=== PATIENT | male | born 1955 | race Caucasian/White ===

== ENCOUNTER 2020-04-11 21:41 | Observation (INO) | payer MEDICARE, SELFPAY ==
--- NOTE | 2020-04-11 | ECG_ITS ---
Test Reason : SYNCOPE Blood Pressure : / mmHG Vent. Rate : 080 BPM Atrial Rate : 060 BPM P-R Int : 000 ms QRS Dur : 222 ms QT Int : 516 ms P-R-T Axes : 000 -32 -66 degrees QTc Int : 595 ms Electronic ventricular pacemaker Abnormal ECG No previous ECGs available Referred By: Generic ED Physician Electronically Signed By:NEIL HUTCHINSON MD
[2020-04-11 21:49] VITALS: BP 118/70; BP 124/72; PULSE 80; RESP 19; O2SAT 93; O2SAT 98; BMI 41.6
[2020-04-11 21:58] LABS: Glucose, Whole Blood 127 mg/dL (60-115)
--- NOTE | 2020-04-11 22:07 | PC.NURSE ---
pt refusing cspine collar, states i cannot breath , attempted to stabilize/maintain aligned cspine w/ blankets and towels. pending primary eval.
--- NOTE | 2020-04-11 22:22 | CT_ITS ---
EXAMINATION: NONCONTRAST HEAD CT NONCONTRAST CERVICAL SPINE CT INDICATION INFORMATION: Fall. COMPARISON: None TECHNIQUE: Separate noncontrast CT examinations of the head and cervical spine were performed. Coronal and sagittal images were created for each examination at the technologist workstation. This CT examination was performed using dose optimization techniques as appropriate, variously including the following: *Automated exposure control *Adjustment of mA and/or kV according to patient size (this includes techniques or standardized protocols for targeted exams where dose is matched to indication/reason for exam; i.e. extremities or head) *Use of iterative reconstruction technique DLP: 1734 mGy-cm FINDINGS: Head: There is no evidence of acute intracranial hemorrhage or territorial infarction. No abnormal mass effect or midline shift is seen. Morales to white matter differentiation is well preserved. No extra-axial fluid collections are identified. No hydrocephalus. No significant volume loss. There is no abnormal attenuation within the brain parenchyma. No acute osseous or soft tissue abnormality. The mastoid air cells and visualized portions of the paranasal sinuses are well aerated. Cervical spine: There is straightening of the normal cervical lordosis. There is otherwise anatomic alignment of the vertebral bodies and posterior elements. The atlantoaxial and atlantooccipital articulations are intact. Vertebral body heights are maintained. There is multilevel intervertebral disc space narrowing with endplate osteophyte formation and facet arthropathy. No evidence of acute fracture. No prevertebral soft tissue swelling. Visualized portions of the lung apices are unremarkable. The thyroid gland is unremarkable. Partially visualized left chest wall pacer wires. CT/CT cervical spine wo con IMPRESSION: 1. No acute intracranial findings. 2. No acute fracture or malalignment of the cervical spine. Moderate degenerative changes.
--- NOTE | 2020-04-11 22:46 | ED_ITS ---
HPI - Fall General Chief Complaint: Fall Stated Complaint: syncopee Time Seen by Provider: 04/11/20 22:21 Source: patient Mode of arrival: EMS History of Present Illness HPI Narrative: 64-year-old male with history of CABG. Defibrillator. states was drinking alcohol today. Stood up and passed out witnessed by his family who called 911. Prior to episode patient states he is feeling little bit weak however has had no chest pain or no shortness of breath patient denies recent illness or fevers. Patient states passed out for several minutes denies any pain currently MD complaint: fall Onset (ago): hour(s) Fall from: standing Place fall occurred: home Length of LOC: minutes(s) Symptoms prior to fall: none Context: alcohol use Location of injury: head Related Data Home Medications Medication Instructions Recorded Confirmed amiodarone 1 tab PO DAILY 04/11/20 04/11/20 atorvastatin 1 tab PO DAILY 04/11/20 04/11/20 carvedilol 1 tab PO BID 04/11/20 04/11/20 clopidogrel 1 tab PO DAILY 04/11/20 04/11/20 furosemide 1 tab PO DAILY 04/11/20 04/11/20 sacubitril-valsartan [Entresto] 1 tab PO BID 04/11/20 04/11/20 sertraline 1 tab PO DAILY 04/11/20 04/11/20 simvastatin 1 tab PO BEDTIME 04/11/20 04/11/20 spironolactone 0.5 tab PO DAILY 04/11/20 04/11/20 Allergies Allergy/AdvReac Type Severity Reaction Status Date / Time No Known Allergies Allergy Verified 04/11/20 21:54 Review of Systems Review of Systems: Constitutional : No Weight loss, No Fever, No Chills, No Night Sweats, No Fatigue, No Malaise ENT/Mouth : No Hearing loss, No Ear Pain, No Nasal Congestion, No Sinus Pain, No Hoarseness, No sore throat, No Rhinorrhea, No Swallowing Difficulty Eyes: No Eye Pain, No Swelling, No Redness, No Foreign Body, No Discharge, No Vision Changes Cardiovascular : No Chest Pain, No SOB, No Dyspnea on Exertion, No Orthopnea, No Edema, No Palpitations Respiratory : No Cough, No Sputum, No Wheezing, No Smoke Exposure, No Dyspnea Gastrointestinal : No Nausea, No Vomiting, No Diarrhea, No Constipation, No abdominal Pain, No Hematochezia, No Melena Genitourinary : no irregular bleeding, No Dysuria, No Urinary Frequency, No Hematuria, No Urinary Incontinence, No Urgency, No Flank Pain, No Urinary Flow Changes, No Hesitancy Musculoskeletal : No joint pain, No Myalgias, No Joint Swelling Skin : No Skin Lesions, No rash Neuro : No Weakness, No Numbness, No Paresthesias, No Loss of Consciousness, No Dizziness, No Headache Psych : No Anxiety/Panic, No Depression, No SI/HI/AH/VH, No Social Issues, Heme/Lymph: No Bruising, No Bleeding,No Lymphadenopathy Endocrine : No Polyuria, No Polydipsia, No Temperature Intolerance [facility] Past Medical History Medical History Borderline diabetes mellitus CHF (congestive heart failure) CVA (cerebral vascular accident) High cholesterol HTN (hypertension) Surgical History H/O heart bypass surgery Stented coronary artery Social History Social History Alcohol intake: current Alcohol intake frequency: 3 or more drinks per day Smoking Status: Light tobacco smoker Smoked in Last 30 Days: Yes Use of substances other than those prescribed or required for medical reasons: Yes Substance Use Type: Marijuana Substance Use Frequency: Occasionally Advance Directives: No Advance Directives Information Provided: Yes Physical Exam Vital Signs: Vital Signs: Last Vital Signs Pulse 80 04/11/20 22:59 Resp 16 04/11/20 22:59 BP 140/87 H 04/11/20 22:59 Pulse Ox 98 04/11/20 22:59 Body Mass Index 41.6 Vital signs reviewed Appearance: Alert. Oriented X3. No acute distress. Obese Eyes: Pupils equal, round and reactive to light. ENT: Pharynx normal. Neck: Normal inspection. Neck supple. No lymph nodes noted. No crepitus CVS: Normal heart rate and rhythm. Pulses normal. Normal S1 and S2 pacemaker left upper chest Respiratory: No respiratory distress. Breath sounds normal. No Wheezing. No ral es Abdomen: Soft and nontender. No rigidity. No distention. good BS x4 Skin: Skin warm and dry. Normal skin color. Normal skin turgor. Extremities: No lower extremity edema. Neurovascular intact to all extremities. No Lacerations. No Rash Neuro: Oriented X 3. No motor deficit. No sensory deficit. Moving all extermities. No slurred speech. Course Course Course Narrative: Differential diagnosis, acute coronary syndrome, stroke, intracranial bleeding I spoke with hospitalist Dr. Redd for admission MDM - Fall MDM Narrative Medical decision making narrative: 64-year-old male with a history of CABG, stroke with admission for syncope. Patient CT scan negative brain and C-spine. Positive for alcohol use EKG is paced rhythm Lab Data Attestation: I reviewed the patient's lab results. Result diagrams: 04/11/20 22:50 04/11/20 22:50 Labs: Lab Results 04/11/20 04/11/20 04/11/20 Range/Units 21:50 22:45 22:50 WBC 6.8 (4.8-10.8) X10*3/uL RBC 4.91 (4.60-5.80) X10*6/uL Hgb 14.9 (14.0-18.0) g/dl Hct 46.6 (42-52) % MCV 94.9 (80-98) fL MCH 30.3 (27.0-33.0) pg MCHC 32.0 (31.0-36.0) g/dl RDW 13.2 (11.0-16.0) % Plt Count 254 (160-400) X10*3/uL MPV 10.5 (9.4-12.4) fL Immature Gran % (Auto) 0.6 H (0.0-0.4) % Neut % (Auto) 56.1 (45-73) % Lymph % (Auto) 29.5 (20-40) % [place] % (Auto) 9.7 (2-11) % Eos % (Auto) 3.8 (0-4) % Baso % (Auto) 0.3 (0-2) % Lymph # (Auto) 2.0 (1.2-4.9) X10*3/uL [place] # (Auto) 0.7 (0.1-1.2) X10*3/uL Eos # (Auto) 0.3 (0.0-0.4) X10*3/uL Baso # (Auto) 0.0 (0.0-0.2) X10*3/uL Abs Immat Gran (auto) 0.04 H (0.00-0.03) X10*3/uL Absolute Neuts (auto) 3.8 (2.0-8.3) X10*3/uL Absolute Nucleated RBC 0.000 (0.0-0.012) X10*3/uL Nucleated RBC % (auto) 0.0 (0.0-0.2) /100WBC PT (10.8-13.0) SEC INR (0.9-1.1) APTT (24.1-38.0) SEC Sodium (135-145) mmol/L Potassium (3.3-5.1) mmol/l Chloride (96-108) mmol/L Carbon Dioxide (22-29) mmol/L Anion Gap (12-20) BUN (9-16) mg/dL Creatinine (0.5-1.4) mg/dL Estim Creat Clear Calc Estimated GFR POC Glucose 127 H (60-115) mg/dL Random Glucose (60-115) mg/dL Calcium (8.4-10.2) mg/dL Total Bilirubin (0.0-1.0) mg/dL Direct Bilirubin (0.0-0.5) mg/dL AST (5-37) U/L ALT (0-40) U/L Alkaline Phosphatase (39-117) U/L Troponin I High Sens (<3.5-35.0) ng/L Total Protein (6.5-8.0) g/dL Albumin (3.5-5.0) g/dL Lipase (8-78) U/L Ethyl Alcohol mg/dL COVID-19 (NELLIE) Negative (Negative) COVID-19 Clin Com See Note 04/11/20 04/11/20 04/11/20 Range/Units 22:50 22:50 22:50 WBC (4.8-10.8) X10*3/uL RBC (4.60-5.80) X10*6/uL Hgb (14.0-18.0) g/dl Hct (42-52) % MCV (80-98) fL MCH (27.0-33.0) pg MCHC (31.0-36.0) g/dl RDW (11.0-16.0) % Plt Count (160-400) X10*3/uL MPV (9.4-12.4) fL Immature Gran % (Auto) (0.0-0.4) % Neut % (Auto) (45-73) % Lymph % (Auto) (20-40) % [place] % (Auto) (2-11) % Eos % (Auto) (0-4) % Baso % (Auto) (0-2) % Lymph # (Auto) (1.2-4.9) X10*3/uL [place] # (Auto) (0.1-1.2) X10*3/uL Eos # (Auto) (0.0-0.4) X10*3/uL Baso # (Auto) (0.0-0.2) X10*3/uL Abs Immat Gran (auto) (0.00-0.03) X10*3/uL Absolute Neuts (auto) (2.0-8.3) X10*3/uL Absolute Nucleated RBC (0.0-0.012) X10*3/uL Nucleated RBC % (auto) (0.0-0.2) /100WBC PT 11.5 (10.8-13.0) SEC INR 1.0 (0.9-1.1) APTT 30.8 (24.1-38.0) SEC Sodium 137 (135-145) mmol/L Potassium 3.8 (3.3-5.1) mmol/l Chloride 98 (96-108) mmol/L Carbon Dioxide 24 (22-29) mmol/L Anion Gap 19 (12-20) BUN 33 H (9-16) mg/dL Creatinine 1.57 H (0.5-1.4) mg/dL Estim Creat Clear Calc 62.1 Estimated GFR 45 POC Glucose (60-115) mg/dL Random Glucose 107 (60-115) mg/dL Calcium 8.7 (8.4-10.2) mg/dL Total Bilirubin 0.2 (0.0-1.0) mg/dL Direct Bilirubin < 0.2 (0.0-0.5) mg/dL AST 17 (5-37) U/L ALT 27 (0-40) U/L Alkaline Phosphatase 55 (39-117) U/L Troponin I High Sens 16.2 (<3.5-35.0) ng/L Total Protein 6.8 (6.5-8.0) g/dL Albumin 4.4 (3.5-5.0) g/dL Lipase 35 (8-78) U/L Ethyl Alcohol mg/dL COVID-19 (NELLIE) (Negative) COVID-19 Clin Com 04/11/20 Range/Units 22:50 WBC (4.8-10.8) X10*3/uL RBC (4.60-5.80) X10*6/uL Hgb (14.0-18.0) g/dl Hct (42-52) % MCV (80-98) fL MCH (27.0-33.0) pg MCHC (31.0-36.0) g/dl RDW (11.0-16.0) % Plt Count (160-400) X10*3/uL MPV (9.4-12.4) fL Immature Gran % (Auto) (0.0-0.4) % Neut % (Auto) (45-73) % Lymph % (Auto) (20-40) % [place] % (Auto) (2-11) % Eos % (Auto) (0-4) % Baso % (Auto) (0-2) % Lymph # (Auto) (1.2-4.9) X10*3/uL [place] # (Auto) (0.1-1.2) X10*3/uL Eos # (Auto) (0.0-0.4) X10*3/uL Baso # (Auto) (0.0-0.2) X10*3/uL Abs Immat Gran (auto) (0.00-0.03) X10*3/uL Absolute Neuts (auto) (2.0-8.3) X10*3/uL Absolute Nucleated RBC (0.0-0.012) X10*3/uL Nucleated RBC % (auto) (0.0-0.2) /100WBC PT (10.8-13.0) SEC INR (0.9-1.1) APTT (24.1-38.0) SEC Sodium (135-145) mmol/L Potassium (3.3-5.1) mmol/l Chloride (96-108) mmol/L Carbon Dioxide (22-29) mmol/L Anion Gap (12-20) BUN (9-16) mg/dL Creatinine (0.5-1.4) mg/dL Estim Creat Clear Calc Estimated GFR POC Glucose (60-115) mg/dL Random Glucose (60-115) mg/dL Calcium (8.4-10.2) mg/dL Total Bilirubin (0.0-1.0) mg/dL Direct Bilirubin (0.0-0.5) mg/dL AST (5-37) U/L ALT (0-40) U/L Alkaline Phosphatase (39-117) U/L Troponin I High Sens (<3.5-35.0) ng/L Total Protein (6.5-8.0) g/dL Albumin (3.5-5.0) g/dL Lipase (8-78) U/L Ethyl Alcohol 148 mg/dL COVID-19 (NELLIE) (Negative) COVID-19 Clin Com ECG Data Attestation: I personally reviewed and interpreted this ECG as follows: Interpretation: Atrially paced at 80. Wide QRS abnormal p.r interval no STEMI. Discharge Plan Discharge Clinical Impression: Alcohol abuse Syncope Qualifiers: Syncope type: unspecified Qualified Code(s): R55 - Syncope and collapse Head injury Qualifiers: Encounter type: initial encounter Qualified Code(s): S09.90XA - Unspecified injury of head, initial encounter Patient Disposition: Admitted As Inpatient
[2020-04-11] MEDS: 0.9 % Sodium Chloride 1,000 ML 999 ML IVCONT (22:53)
[2020-04-11 22:57] LABS: Basophils Percent Auto 0.3 % (0-2); Eosinophils Absolute Auto 0.3 X10*3/uL (0.0-0.4); Eosinophils Percent Auto 3.8 % (0-4); Hematocrit 46.6 % (42-52); Hemoglobin 14.9 g/dl (14.0-18.0); Imm Gran Abs Auto 0.04 X10*3/uL (0.00-0.03); Imm Gran Pct Auto 0.6 % (0.0-0.4); Lymphocytes Percent Auto 29.5 % (20-40); Mean Corpuscular Hemoglobin 30.3 pg (27.0-33.0); Mean Corpuscular Volume 94.9 fL (80-98); Mean Platelet Volume 10.5 fL (9.4-12.4); Monocytes Absolute Auto 0.7 X10*3/uL (0.1-1.2); Monocytes Percent Auto 9.7 % (2-11); Neutrophils Absolute Auto 3.8 X10*3/uL (2.0-8.3); Neutrophils Percent Auto 56.1 % (45-73); Platelet Count 254 X10*3/uL (160-400); Red Blood Count 4.91 X10*6/uL (4.60-5.80); Red Cell Distribution Width 13.2 % (11.0-16.0); White Blood Count 6.8 X10*3/uL (4.8-10.8)
[2020-04-11 22:59] VITALS: BP 140/87; PULSE 80; RESP 16; O2SAT 98
[2020-04-11 22:59] LABS: MANUAL DIFF FLAG NO
[2020-04-11 23:05] LABS: Prothrombin Time 11.5 SEC (10.8-13.0)
[2020-04-11 23:07] LABS: Partial Thromboplastin Time 30.8 SEC (24.1-38.0)
[2020-04-11 23:24] LABS: Ethanol 148 mg/dL
[2020-04-11 23:26] LABS: COVID-19 Test Negative (Negative); IDNOW Serial# 9DD0AD1C
[2020-04-11 23:28] LABS: Alanine Aminotransferase 27 U/L (0-40); Albumin Level 4.4 g/dL (3.5-5.0); Alkaline Phosphatase 55 U/L (39-117); Anion Gap 19 (12-20); Aspartate Amino Transferase 17 U/L (5-37); Bilirubin Direct < 0.2 mg/dL (0.0-0.5); Bilirubin Total 0.2 mg/dL (0.0-1.0); Blood Urea Nitrogen 33 mg/dL (9-16); Calcium 8.7 mg/dL (8.4-10.2); Carbon Dioxide 24 mmol/L (22-29); Chloride 98 mmol/L (96-108); Creatinine Clr Calc Pharmacy 62.1; Estimated Glomerular Filt Rate 45; Glucose Random 107 mg/dL (60-115); Lipase 35 U/L (8-78); Potassium 3.8 mmol/l (3.3-5.1); Sodium 137 mmol/L (135-145); Total Protein 6.8 g/dL (6.5-8.0)
[2020-04-11 23:32] LABS: Troponin-I High Sensitivity 16.2 ng/L (<3.5-35.0)
[2020-04-12] VITALS (15 sets, daily range): BP systolic 86–175; BP diastolic 52–98; PULSE 58–92; RESP 16–25; TEMP 36.4–37.2; O2SAT 93–99; BMI 41.6
--- NOTE | 2020-04-12 | XR_ITS ---
EXAMINATION: XR CHEST CLINICAL INFORMATION: Shortness of breath COMPARISON: 12/26/2007 TECHNIQUE: Frontal view of the chest was obtained. FINDINGS: Left chest wall pacer with leads over the right atrium and right ventricle. Median sternotomy wires noted with fracture of the superior wires. Cardiac leads overlie the chest. The lungs are well expanded. There is mild bronchial wall thickening noted. No consolidation. No edema or effusion. No pneumothorax. The cardiomediastinal silhouette appears prominent. XR/XR chest 1V IMPRESSION: No consolidation. Bronchial wall thickening can be seen with a small airways process such as asthma or atypical/viral infection.
--- NOTE | 2020-04-12 | ECG_ITS ---
Test Reason : SYNCOPE Blood Pressure : / mmHG Vent. Rate : 059 BPM Atrial Rate : 059 BPM P-R Int : 186 ms QRS Dur : 158 ms QT Int : 514 ms P-R-T Axes : 040 265 033 degrees QTc Int : 508 ms Sinus bradycardia Possible Left atrial enlargement Right bundle branch block Left anterior fascicular block Abnormal ECG When compared with ECG of 11-APR-2020 21:53, Sinus rhythm has replaced Electronic ventricular pacemaker Referred By: Lluvia Han Electronically Signed By:NEIL HUTCHINSON MD
[2020-04-12] MEDS: Enoxaparin Sodium 40 MG/0.4 ML SYRINGE SUBCUT (02:07)
[2020-04-12] MEDS: 0.9 % Sodium Chloride Flush 3 ML SYRINGE IVFLUSH ×3 (02:09→23:20)
--- NOTE | 2020-04-12 02:22 | P.HPHOSP_ITS ---
History of Present Illness Date of Service: 04/12/20 Chief Complaint: syncope this is a 64-year-old male with past medical history of CHFrEF, coronary artery disease status post CABG, HTN, hyperlipidemia, borderline diabetes , CVA, who presents to the hospital with complaints of syncopal episode. Patient reports that he was at home was sitting down got up to go outside and passed out. He reports he had no prodromal symptoms, he had a similar episode a week prior but did not want to come to the hospital. this lasted for few seconds, when he came about he was not postictal. His daughter witnessed the episode, and told him that when he went down he hit his head on the side of the covered. He reported no lightheadedness, no palpitations, no chest pain, he reports a chronic shortness of breath with no change, no changes in vision. Currently has no headache. He has been in his usual state of health. He was drinking more than usual today with his friends and was drawn clean the incident occurred but reports that when the previous incident happened last week he was sober and was not drinking. he reports that he has not been able to lie flat in his bed for almost a year now and reports some lower extremity edema mostly when he is on his boat and does not move around. Patient also reports incidence of defibrillator shocking him sometime in April of last year as well as May to June. He reports that he sometimes his defibrillator does record irregularities without him having any symptoms of it. On arrival to the ED hemodynamically stable with no significant abnormal vitals labs are significant for a BUN of 33 with a creatinine of 1.57, head and cervical spine CT negative, EKG shows paced rhythm past medical history: Coronary artery disease status post CABG, CHF with reduced ejection fraction, hypertension, hyperlipidemia, CVA, borderline diabetes past surgical history: CABG family history: significant for heart disease, hypertension social history: Comes from home, lives with his daughter, smokes less than 1 pack per day, drinks about 3 hard liquor daily, denies any history of withdrawals, denies any illicit drug use Review of Systems Review of Systems: Yes all other systems are reviewed and are negative [facility] Medical History Borderline diabetes mellitus CHF (congestive heart failure) CVA (cerebral vascular accident) High cholesterol HTN (hypertension) Surgical History H/O heart bypass surgery Stented coronary artery Social History Household Members: Children Housing: House Do you presently have visiting nurse or other home services: No Alcohol intake: current Alcohol intake frequency: 3 or more drinks per day Smoking Status: Light tobacco smoker Years Smoked: 50 Smoked in Last 30 Days: Yes Patient Interested in Nicotine Replacement: Yes Use of substances other than those prescribed or required for medical reasons: Yes Substance Use Type: Marijuana Substance Use Frequency: Occasionally Last Used Substance: Days (ago) Have you been hit, kicked, punched, or otherwise hurt by someone within the past year? If so, by whom?: No Do you feel safe in your current relationship?: No Current Relationship Is there a partner from a previous relationship who is making you feel unsafe now?: No Are you made to feel afraid or neglected: No Advance Directives: No Advance Directives Information Provided: Yes Do you have thoughts of harming others: None Do you have a plan to hurt others: No Plan Recently lost weight without trying: No Meds Allergies Allergy/AdvReac Type Severity Reaction Status Date / Time No Known Allergies Allergy Verified 04/11/20 21:54 Home Medications Medication Instructions Recorded Confirmed Type amiodarone 1 tab PO DAILY 04/11/20 04/11/20 History atorvastatin 1 tab PO DAILY 04/11/20 04/11/20 History carvedilol 1 tab PO BID 04/11/20 04/11/20 History clopidogrel 1 tab PO DAILY 04/11/20 04/11/20 History furosemide 1 tab PO DAILY 04/11/20 04/11/20 History sacubitril-valsartan [Entresto] 1 tab PO BID 04/11/20 04/11/20 History sertraline 1 tab PO DAILY 04/11/20 04/11/20 History simvastatin 1 tab PO BEDTIME 04/11/20 04/11/20 History spironolactone 0.5 tab PO DAILY 04/11/20 04/11/20 History Physical Exam Vital Signs and Narrative: Vital Signs: Last Vital Signs Temp 98.2 F 04/12/20 01:54 Pulse 70 04/12/20 01:54 Resp 18 04/12/20 01:54 BP 123/77 04/12/20 01:54 Pulse Ox 98 04/12/20 01:54 Body Mass Index 41.6 Const: General: cooperative and no acute distress Orientation/consciousness: patient oriented x3 Eyes: General: appearance normal, both eyes and all related structures Pupils: Equal, round and reactive pupils present Resp: Effort & Inspection: normal respiratory effort and able to speak in complete sentences Auscultation: clear to auscultation bilaterally Cardio: Rate: regular rate Rhythm: regular rhythm GI: Palpation (GI): Soft to palpation Auscultation: normal bowel sounds Skin: General skin exam: no rashes or lesions noted Neuro: General: patient oriented x3 Cranial nerves: Yes Equal, round and reactive pupils present Cognition (Neuro): normal cognition Extrem: General: Yes normal to inspection and Yes no pedal edema Results Labs CBC and Chem 7: 04/11/20 22:50 04/11/20 22:50 Labs: Laboratory Results - last 24 hr 04/11/20 04/11/20 04/11/20 21:50 22:45 22:50 MCV 94.9 MCH 30.3 MCHC 32.0 RDW 13.2 Plt Count 254 MPV 10.5 Immature Gran % (Auto) 0.6 H Neut % (Auto) 56.1 Lymph % (Auto) 29.5 [place] % (Auto) 9.7 Eos % (Auto) 3.8 Baso % (Auto) 0.3 Lymph # (Auto) 2.0 [place] # (Auto) 0.7 Eos # (Auto) 0.3 Baso # (Auto) 0.0 Abs Immat Gran (auto) 0.04 H Absolute Neuts (auto) 3.8 Absolute Nucleated RBC 0.000 Nucleated RBC % (auto) 0.0 PT INR APTT Anion Gap Estim Creat Clear Calc Estimated GFR POC Glucose 127 H Random Glucose Calcium Total Bilirubin Direct Bilirubin AST ALT Alkaline Phosphatase Troponin I High Sens Total Protein Albumin Lipase Ethyl Alcohol COVID-19 (NELLIE) Negative COVID-19 Clin Com See Note 04/11/20 04/11/20 04/11/20 22:50 22:50 22:50 MCV MCH MCHC RDW Plt Count MPV Immature Gran % (Auto) Neut % (Auto) Lymph % (Auto) [place] % (Auto) Eos % (Auto) Baso % (Auto) Lymph # (Auto) [place] # (Auto) Eos # (Auto) Baso # (Auto) Abs Immat Gran (auto) Absolute Neuts (auto) Absolute Nucleated RBC Nucleated RBC % (auto) PT 11.5 INR 1.0 APTT 30.8 Anion Gap 19 Estim Creat Clear Calc 62.1 Estimated GFR 45 POC Glucose Random Glucose 107 Calcium 8.7 Total Bilirubin 0.2 Direct Bilirubin < 0.2 AST 17 ALT 27 Alkaline Phosphatase 55 Troponin I High Sens 16.2 Total Protein 6.8 Albumin 4.4 Lipase 35 Ethyl Alcohol COVID-19 (NELILE) COVID-19 Clin Com 04/11/20 22:50 MCV MCH MCHC RDW Plt Count MPV Immature Gran % (Auto) Neut % (Auto) Lymph % (Auto) [place] % (Auto) Eos % (Auto) Baso % (Auto) Lymph # (Auto) [place] # (Auto) Eos # (Auto) Baso # (Auto) Abs Immat Gran (auto) Absolute Neuts (auto) Absolute Nucleated RBC Nucleated RBC % (auto) PT INR APTT Anion Gap Estim Creat Clear Calc Estimated GFR POC Glucose Random Glucose Calcium Total Bilirubin Direct Bilirubin AST ALT Alkaline Phosphatase Troponin I High Sens Total Protein Albumin Lipase Ethyl Alcohol 148 COVID-19 (NELLIE) COVID-19 Clin Com Imaging Radiologist's Impressions: Impressions Cervical Spine CT 04/11/20 22:22 IMPRESSION: 1. No acute intracranial findings. 2. No acute fracture or malalignment of the cervical spine. Moderate degenerative changes. Head CT 04/11/20 22:22 IMPRESSION: 1. No acute intracranial findings. 2. No acute fracture or malalignment of the cervical spine. Moderate degenerative changes. Assessment and Plan (1) Syncope: Qualifiers: Syncope type: unspecified Qualified Code(s): R55 - Syncope and collapse Status: Acute (2) Alcohol abuse: Status: Acute (3) Coronary artery disease: Status: Acute (4) HTN (hypertension): Status: Acute (5) CVA (cerebral vascular accident): Status: Acute (6) CHF (congestive heart failure): Status: Acute (7) Status post coronary artery bypass graft: Status: Acute this is a 64-year-old male with past medical history as above who presents to the hospital with complaints of syncope # syncope - secondary to alcohol intoxication versus versus vagovagal versus orthostatic versus cardiogenic in the setting of his cardiac history - patient has a [employer] defibrillator in place, denies having felt any shock - denies any prodromal symptoms and no postictal state plan: - Telemetry - will try to have his defibrillator assessed in a.m. - will obtain orthostatic vitals # orthopnea and lower extremity edema - patient reports symptoms are chronic - he also has dyspnea that is also chronic and has not worsened recently - does have history of CHF with low ejection fraction of less than 30% plan: - Will obtain a stat chest x-ray, BNP - continue home dose of furosemide unless BNP is elevated will switch to IV # history of CHF - chronic versus acute exacerbation - will obtain echocardiogram, continue Lasix at 40 mg daily, continue spironolactone, carvedilol,and amiodarone as well as Entresto # coronary artery disease - no chest pain - continue carvedilol, statin, Plavix # hypertension - stable - continue home regimen as above DVT prophylaxis: Lovenox
[2020-04-12 03:30] LABS: B Type Natriuretic Peptide 136 pg/mL (<100)
[2020-04-12 07:17] LABS: Glucose, Whole Blood 112 mg/dL (60-115)
[2020-04-12] MEDS: Furosemide 40 MG TABLET PO (08:32)
[2020-04-12] MEDS: Amiodarone HCL 200 MG TABLET PO (08:32)
[2020-04-12] MEDS: Clopidogrel Bisulfate 75 MG TABLET PO (08:32)
[2020-04-12] MEDS: Spironolactone 25 MG TABLET 12.5 MG PO (08:32)
[2020-04-12] MEDS: Sacubitril/Valsartan 24/26 1 TAB TABLET PO ×2 (08:33→20:50)
[2020-04-12] MEDS: Sertraline HCL 50 MG TABLET PO (08:33)
[2020-04-12] MEDS: Atorvastatin Calcium 40 MG TABLET PO (08:33)
[2020-04-12] MEDS: carvediloL 12.5 MG TABLET PO ×2 (08:33→20:50)
[2020-04-12] MEDS: Flu Vacc QS2020-21(6mos up)/PF 0.5 ML SYRINGE IM (08:33)
[2020-04-12] MEDS: Nicotine 7 MG PATCH.TD24 TRANSDERMA (09:00)
--- NOTE | 2020-04-12 09:24 | MHC.CM.PN ---
CM met with Patient. Patient lives in a house with his Adult Daughter and he is functionally independent. Patient's goal is to return home, no services, and CM has initiated and will follow for dc planning. SARAH addressed with Patient and the original has been given to him and a copy has been placed on the chart. PCP is Dr. Joseph Crowell in [place]. Patient has a history of ETOH and may benefit from a Care Team Consult.
[2020-04-12 11:19] LABS: Glucose, Whole Blood 104 mg/dL (60-115)
--- NOTE | 2020-04-12 13:40 | P.CONCA_ITS ---
History of Present Illness History of Present Illness Date of Service: 04/12/20 Requesting physician: Lluvia Han Chief complaint: syncope Narrative: 64-year-old gentleman with background history of hypertension, CVA, diabetes, CHF, known coronary artery disease with previous bypass surgery, his tobacco abuse and alcohol abuse who presented with syncope. Patient said that he was sitting and is stood up to walk behind her daughter to go out when he blacked out. He said he hit his head. He does not recall having much symptoms before. He said he had similar episode a month or 2 ago when he was sitting in a chair and his eyes rolled back and he had seizure-like activity by his description. This was witnessed by daughter by his report. He denies any chest discomfort shortness of breath. He drinks almost every day and likes to drink vodka and tonic. He has cardiomyopathy and previous AICD and he follows up with Dr. Amish Astorga at [facility]. He said he had device shocks many months ago when he was traveling but recently has not had any device therapies. He is reporting that he has takes medication regularly. He has significant dyspnea on exertion and he is able to walk few steps and gets significant dyspnea. Review of Systems Review of Systems: Dyspnea on exertion Yes all other systems are reviewed and are negative PMFSH Past Medical History Medical History (Updated 04/12/20 @ 03:07 by Merlene Carbajal MD) Borderline diabetes mellitus CHF (congestive heart failure) Coronary artery disease CVA (cerebral vascular accident) High cholesterol HTN (hypertension) Surgical History Surgical History (Updated 04/12/20 @ 03:07 by Merlene Carbajal MD) H/O heart bypass surgery Status post coronary artery bypass graft Stented coronary artery Social History Social History Household Members: Children Housing: House Do you presently have visiting nurse or other home services: No Alcohol intake: current Alcohol intake frequency: 3 or more drinks per day Smoking Status: Light tobacco smoker Years Smoked: 50 Smoked in Last 30 Days: Yes Patient Interested in Nicotine Replacement: Yes Use of substances other than those prescribed or required for medical reasons: Yes Substance Use Type: Marijuana Substance Use Frequency: Occasionally Last Used Substance: Days (ago) Currently Displaying Signs/Symptoms of Drug Intoxication Withdrawal: No Have you been hit, kicked, punched, or otherwise hurt by someone within the past year? If so, by whom?: No Do you feel safe in your current relationship?: No Current Relationship Is there a partner from a previous relationship who is making you feel unsafe now?: No Are you made to feel afraid or neglected: No Advance Directives: No Advance Directives Information Provided: Yes Do you have thoughts of harming others: None Do you have a plan to hurt others: No Plan Recently lost weight without trying: No service: No Current occupational status: [employer] Allergies Allergy/AdvReac Type Severity Reaction Status Date / Time No Known Allergies Allergy Verified 04/11/20 21:54 Home Medications Medication Instructions Recorded Confirmed Type amiodarone 1 tab PO DAILY 04/11/20 04/11/20 History atorvastatin 1 tab PO DAILY 04/11/20 04/11/20 History carvedilol 1 tab PO BID 04/11/20 04/11/20 History clopidogrel 1 tab PO DAILY 04/11/20 04/11/20 History furosemide 1 tab PO DAILY 04/11/20 04/11/20 History sacubitril-valsartan [Entresto] 1 tab PO BID 04/11/20 04/11/20 History sertraline 1 tab PO DAILY 04/11/20 04/11/20 History simvastatin 1 tab PO BEDTIME 04/11/20 04/11/20 History spironolactone 0.5 tab PO DAILY 04/11/20 04/11/20 History Physical Exam Vital Signs: Vital Signs: Last Vital Signs Temp 97.5 F 04/12/20 12:00 Pulse 80 04/12/20 12:00 Resp 18 04/12/20 12:00 BP 103/61 04/12/20 12:00 Pulse Ox 96 04/12/20 12:00 Body Mass Index 41.6 GENERAL APPEARANCE: in no acute distress, well developed, well nourished. HEENT: unremarkable. HEAD: normocephalic, atraumatic. NECK/THYROID: no carotid bruit, JVD approximately 13 cm water. SKIN: no suspicious lesions, warm and dry. HEART: no murmurs, regular rate and rhythm, S1, S2 normal. LUNGS: crackles at bases. ABDOMEN: normal, bowel sounds present, soft, nontender, nondistended. EXTREMITIES: no clubbing, cyanosis, or edema. PERIPHERAL PULSES: equal. NEUROLOGIC: nonfocal, alert and oriented. PSYCH: mood/affect full range. Results Labs and Meds Result diagrams: 04/11/20 22:50 04/11/20 22:50 Lab results: Laboratory Results - last 24 hr 04/11/20 04/11/20 04/11/20 21:50 22:45 22:50 WBC 6.8 RBC 4.91 Hgb 14.9 Hct 46.6 MCV 94.9 MCH 30.3 MCHC 32.0 RDW 13.2 Plt Count 254 MPV 10.5 Immature Gran % (Auto) 0.6 H Neut % (Auto) 56.1 Lymph % (Auto) 29.5 [place] % (Auto) 9.7 Eos % (Auto) 3.8 Baso % (Auto) 0.3 Lymph # (Auto) 2.0 [place] # (Auto) 0.7 Eos # (Auto) 0.3 Baso # (Auto) 0.0 Abs Immat Gran (auto) 0.04 H Absolute Neuts (auto) 3.8 Absolute Nucleated RBC 0.000 Nucleated RBC % (auto) 0.0 PT INR APTT Sodium Potassium Chloride Carbon Dioxide Anion Gap BUN Creatinine Estim Creat Clear Calc Estimated GFR POC Glucose 127 H Random Glucose Calcium Total Bilirubin Direct Bilirubin AST ALT Alkaline Phosphatase Troponin I High Sens B-Natriuretic Peptide Total Protein Albumin Lipase Ethyl Alcohol COVID-19 (NELLIE) Negative COVID-19 Clin Com See Note 04/11/20 04/11/20 04/11/20 22:50 22:50 22:50 WBC RBC Hgb Hct MCV MCH MCHC RDW Plt Count MPV Immature Gran % (Auto) Neut % (Auto) Lymph % (Auto) [place] % (Auto) Eos % (Auto) Baso % (Auto) Lymph # (Auto) [place] # (Auto) Eos # (Auto) Baso # (Auto) Abs Immat Gran (auto) Absolute Neuts (auto) Absolute Nucleated RBC Nucleated RBC % (auto) PT 11.5 INR 1.0 APTT 30.8 Sodium 137 Potassium 3.8 Chloride 98 Carbon Dioxide 24 Anion Gap 19 BUN 33 H Creatinine 1.57 H Estim Creat Clear Calc 62.1 Estimated GFR 45 POC Glucose Random Glucose 107 Calcium 8.7 Total Bilirubin 0.2 Direct Bilirubin < 0.2 AST 17 ALT 27 Alkaline Phosphatase 55 Troponin I High Sens 16.2 B-Natriuretic Peptide 136 H Total Protein 6.8 Albumin 4.4 Lipase 35 Ethyl Alcohol COVID-19 (NELLIE) COVID-19 Clin Com 04/11/20 04/12/20 04/12/20 22:50 07:10 11:15 WBC RBC Hgb Hct MCV MCH MCHC RDW Plt Count MPV Immature Gran % (Auto) Neut % (Auto) Lymph % (Auto) [place] % (Auto) Eos % (Auto) Baso % (Auto) Lymph # (Auto) [place] # (Auto) Eos # (Auto) Baso # (Auto) Abs Immat Gran (auto) Absolute Neuts (auto) Absolute Nucleated RBC Nucleated RBC % (auto) PT INR APTT Sodium Potassium Chloride Carbon Dioxide Anion Gap BUN Creatinine Estim Creat Clear Calc Estimated GFR POC Glucose 112 104 Random Glucose Calcium Total Bilirubin Direct Bilirubin AST ALT Alkaline Phosphatase Troponin I High Sens B-Natriuretic Peptide Total Protein Albumin Lipase Ethyl Alcohol 148 COVID-19 (NELLIE) COVID-19 Clin Com Assessment and Plan (1) HTN (hypertension): Status: Acute (2) CHF (congestive heart failure): Status: Acute (3) Syncope: Qualifiers: Syncope type: unspecified Qualified Code(s): R55 - Syncope and collapse Status: Acute (4) Alcohol abuse: Status: Acute 64-year-old gentleman with complex cardiovascular issues including previous bypass surgery, cardiomyopathy, alcohol abuse, tobacco abuse who is presenting with syncope. We interrogated his AICD and he did not have any events Recently to explain his syncope. He had a run of ventricular tachycardia in February. clinically he looks volume overloaded and in heart failure. I think he should get IV diuretics. Rest of his medications can be continued. I have advised him that he should start drinking because if he has a cardiomyopathy then alcohol use can worsen his ejection fraction and may slow his recovery. Monitor electrolytes closely. He will follow-up with Dr. Amish Astorga when he is ready for discharge. Thank you for allowing me to participate in the care of your patient. Please feel free to contact me if you have any questions.
[2020-04-12] MEDS: Furosemide 100 MG/10 ML VIAL 60 MG IVPUSH (14:10)
--- NOTE | 2020-04-12 14:47 | PC.NURSE ---
pt walking steady, complaining of left foot pain - assessed pt foot - looks swollen on left inner foot /toe compared to right- notified dr the ? of gout. MD reports will come see pt. will pass onto oncoming RN
--- NOTE | 2020-04-12 16:00 | CA_ITS ---
Transthoracic Echocardiogram Patient (Last, First, Middle): Dakota Trejo P Gender: Male Date of : 1955 Age: 64 Procedure Date: 04/12/2020 Procedure Type: Transthoracic Echocardiogram Location: [facility] [place] Height: 175.26 cm Weight: 127.92 kg BSA: 2.39 m2 Heart Rate: bpm BP: 123 / 77 mmHg Electrical Maintenance Supervisor: Referring MD: Merlene Carbajal MD Principal Strategist: Collin Steiner MD Symptoms: syncope Study Quality: Technically Difficult due to obesity ECG Rhythm: Ventriculary paced rhythm Conclusions: - 1. Moderately dilated left ventricle with severe LV systolic dysfunction with LVEF of 25-30% with pseudonormal filling pattern 2. Moderately dilated left atrium 3. Normal RV systolic pressure 4. Normal cardiac valvular Doppler next 5. Pericardium not well visualized Findings Left Ventricle Moderately increased left ventricular cavity size. The left ventricular systolic function is severely decreased. The visually estimated ejection fraction is between 25-30%. Regional wall motion abnormalities can not be excluded due to suboptimal endocardial definition. Spectral Doppler is indicative of a pseudonormal filling pattern. E/E prime ratio is between 8 and 15 consistent with indeterminate filling pressures. Right Ventricle The right ventricle was not well visualized. There is an ICD wire seen in the right ventricle. Atria The left atrium is moderately dilated. Interatrial shunt cannot be excluded. The right atrium was not well visualized. Aortic Valve The aortic valve structure and function is likely normal. There is no aortic valve stenosis. There is no aortic valve regurgitation. Mitral Valve There is mild anterior and posterior mitral leaflet thickening. The posterior mitral leaflet has restricted mobility. There is trace mitral valve regurgitation. There is no mitral valve stenosis. Pulmonic Valve The pulmonic valve was not well visualized. Tricuspid Valve Likely normal tricuspid valve structure and function. There is mild tricuspid valve regurgitation. The right ventricular systolic pressure is normal. The right ventricular systolic pressure is 25 mmHg. There is no evidence of pulmonary hypertension. Great Vessels All visible segments of the aorta are normal in size. The pulmonary artery was not well visualized. Venous The inferior vena cava is normal in size and collapses greater than 50% with inspiration. Pericardium/Pleural The pericardium was not well visualized. Prior Study Comparison No prior study available for comparison. H/O CABG X3 IN [address] MERLOS AT [facility] Measurements 2D Linear Measurements IVSd: 1.42 0.6-0.9/0.6-1.0 cm LVIDd: 6.38 3.9-5.3/4.2-5.9 cm LVIDd Index: 2.67 2.4-3.2/2.2-3.1 cm/m2 LVIDs: 5.46 2.0-3.6 cm LVPWd: 1.42 0.7-1.1 cm Ao Root: 3.70 2.1-3.5 cm LA Diam: 4.70 2.7-3.8/3.0-4.0 cm LAIDs Index: 1.97 1.5-2.3 cm/m2 LV Mass: 545.05 67-162/88-224 g LV Mass Index: 228.05 43-95/49-115 g/m2 LVOT Diam: 2.50 3.0+(-)1.3 cm 2D Systolic Function EF 4C: 34.40 >55% EF 2C: 17.30 >55% EF BiP: 25.80 >55% Mitral Valve MV Pk E: 0.90 MV PK A: 0.82 MV Decel Time: 246.00 E/A: 1.10 E'Lateral: 6.48 E'Medial: 7.83 E/E' Med: 11.50 E/E' Lat: 13.80 PHT: 72.00 MVA PHT: 3.06 Decel [place]: 3.64 Aortic Valve AoV Pk Darek: 1.41 AoV Mn Darek: 0.92 AoV VTI: 0.30 AoV Pk Grad: 8.00 Aov Mn Grad: 4.00 RAMY Cont.VTI: 2.96 LVOT LVOT Pk Darek: 0.81 LVOT Mn Darek: 0.57 LVOT VTI: 0.18 LVOT Pk Grad: 3.00 LVOT Mn Grad: 2.00 LVOT Diam: 2.50 LVOT Area: 4.91 Diastolic Function MV Pk E: 0.90 MV Pk A: 0.82 E/A: 1.10 E'Medial: 7.83 E/E' Med: 11.50 E' Laterial: 6.48 E/E' Lat: 13.80 Tricuspid Valve TR Pk Darek: 2.34 TR Pk Grad: 22.00 RA Press: 3.00 RVSP: 25.00 Great Vessels Aorta Ao Root-2D: 3.70 2.0-3.7 cm Ao Asc: 3.60 2.1-3.4 cm Pulmonary Valve PV Pk Darek: 0.84 Peak PV Grad: 3.00 Updated in Other Vendor System with Status of Final Collin Steiner MD electronically signed on 04/13/2020 11:49:19 AM with status of Final
[2020-04-12] MEDS: NaPROXEN 500 MG TABLET PO (18:58)
[2020-04-12] MEDS: predniSONE 5 MG TABLET 15 MG PO (18:59)
--- NOTE | 2020-04-12 19:25 | PC.NURSE ---
pt evaluated by DR Han for lt great toe pain and edema. New meds ordered and administered : Naprosyn and Prednisone.
[2020-04-12] MEDS: Acetaminophen 325 MG TABLET 650 MG PO (20:49)
[2020-04-13] MEDS: Enoxaparin Sodium 40 MG/0.4 ML SYRINGE SUBCUT (01:39)
[2020-04-13 03:21] VITALS: BP 128/76; PULSE 88; RESP 18; TEMP 37; O2SAT 98
[2020-04-13 06:14] LABS: MANUAL DIFF FLAG NO
[2020-04-13 06:22] LABS: Basophils Percent Auto 0.1 % (0-2); Eosinophils Percent Auto 0.4 % (0-4); Hematocrit 41.8 % (42-52); Hemoglobin 13.7 g/dl (14.0-18.0); Imm Gran Abs Auto 0.04 X10*3/uL (0.00-0.03); Imm Gran Pct Auto 0.5 % (0.0-0.4); Lymphocytes Absolute Auto 0.9 X10*3/uL (1.2-4.9); Mean Corpuscular HGB Conc 32.8 g/dl (31.0-36.0); Mean Corpuscular Hemoglobin 30.9 pg (27.0-33.0); Mean Corpuscular Volume 94.1 fL (80-98); Mean Platelet Volume 11.1 fL (9.4-12.4); Monocytes Absolute Auto 0.7 X10*3/uL (0.1-1.2); Monocytes Percent Auto 7.7 % (2-11); Neutrophils Percent Auto 81.3 % (45-73); Platelet Count 201 X10*3/uL (160-400); Red Blood Count 4.44 X10*6/uL (4.60-5.80); Red Cell Distribution Width 13.1 % (11.0-16.0); White Blood Count 8.6 X10*3/uL (4.8-10.8)
[2020-04-13 06:52] LABS: Anion Gap 14 (12-20); Blood Urea Nitrogen 25 mg/dL (9-16); Calcium 8.3 mg/dL (8.4-10.2); Carbon Dioxide 28 mmol/L (22-29); Chloride 98 mmol/L (96-108); Creatinine Clr Calc Pharmacy 83.3; Estimated Glomerular Filt Rate > 60; Glucose Random 121 mg/dL (60-115); Potassium 4.5 mmol/l (3.3-5.1); Sodium 135 mmol/L (135-145)
[2020-04-13 07:46] LABS: Glucose, Whole Blood 128 mg/dL (60-115)
[2020-04-13 08:00] VITALS: BP 140/85; PULSE 60; RESP 20; TEMP 36.2; O2SAT 95
[2020-04-13] MEDS: predniSONE 5 MG TABLET 15 MG PO (08:41)
[2020-04-13] MEDS: Furosemide 40 MG/4 ML VIAL IVPUSH (08:41)
[2020-04-13] MEDS: Atorvastatin Calcium 40 MG TABLET PO (08:41)
[2020-04-13 08:42] VITALS: BP 140/85; PULSE 60
[2020-04-13] MEDS: carvediloL 12.5 MG TABLET PO (08:42)
[2020-04-13] MEDS: Amiodarone HCL 200 MG TABLET PO (08:42)
[2020-04-13 08:43] VITALS: BP 140/85; PULSE 60
[2020-04-13] MEDS: Sacubitril/Valsartan 24/26 1 TAB TABLET PO (08:43)
[2020-04-13] MEDS: Spironolactone 25 MG TABLET 12.5 MG PO (08:43)
[2020-04-13] MEDS: 0.9 % Sodium Chloride Flush 3 ML SYRINGE IVFLUSH (08:44)
[2020-04-13] MEDS: Clopidogrel Bisulfate 75 MG TABLET PO (08:44)
[2020-04-13] MEDS: Sertraline HCL 50 MG TABLET PO (08:44)
[2020-04-13] MEDS: Nicotine 7 MG PATCH.TD24 TRANSDERMA (08:50)
[2020-04-13 11:11] VITALS: BP 140/68; PULSE 62; RESP 17; TEMP 36.7; O2SAT 97
[2020-04-13 11:47] LABS: Uric Acid 10.5 mg/dL (3.4-7.0)
--- NOTE | 2020-04-13 12:20 | PM.PNCARD ---
Subjective Subjective Date of Service: 04/13/20 Principal diagnosis: Syncope, CHF Interval history: Cardiology follow up of syncope, HF. Today he reports feeling well. He reports chronic sob with activity that increased some in days prior to admission. He now feels breathing is better. No chest pains, palpitation. No lightheadedness. Ambulates with walker in his room and tolerates. Feels ready to go home. Follows with Dr Astorga for cardiology Review of Systems Review of Systems Yes all other systems are reviewed and are negative Constitutional: Denies frequent falls Denies dizziness Cardiovascular: Denies chest pain, Denies chest pain at rest, Denies chest pain with activity, Denies Epigastric Pain, Denies syncope, Denies claudication, Denies lightheadedness, Denies radiating jaw, neck or arm pain, Denies palpitations, Reports dyspnea on exertion and Denies orthopnea Respiratory: Denies cough, Denies hemoptysis, Denies pain on inspiration and Reports dyspnea on exertion Gastrointestinal: Reports no additional gastrointestinal complaints and Denies abdominal pain Musculoskeletal: Reports no additional musculoskeletal complaints Denies Abnormal speech present, Denies confusion, Denies dizziness, Denies syncope and Denies frequent falls Psychiatric: Denies confusion Endocrine: Denies palpitations Physical Exam Vital Signs: Last Vital Signs Temp 98.1 F 04/13/20 11:11 Pulse 62 04/13/20 11:11 Resp 17 04/13/20 11:11 BP 140/68 H 04/13/20 11:11 Pulse Ox 97 04/13/20 11:11 Body Mass Index 41.6 Const Other: Alert, oriented, calm and appropriate General: No confusion Orientation/consciousness: No confusion HENNE Head: Yes normal to inspection Neck Neck: Yes normal visual inspection and Yes no JVD Resp Other: Lungs with fine expiratory wheezes noted bilaterally, no rales Effort & Inspection: able to speak in complete sentences and not labored Auscultation: no crackles, no rales and no rhonchi Cardio Palpation: normal PMI Rate: regular rate Rhythm: regular rhythm Heart sounds: S1 normal heart sound present and S2 normal heart sound present Peripheral pulses: Peripheral pulses 2+ throughout GI Inspection: Yes normal to inspection Neuro General: No confusion Speech: No Abnormal speech present Extrem Other: Trace nonpitting lower leg edema General: Yes normal to inspection Results Labs and Meds Result diagrams: 04/13/20 05:28 04/13/20 05:28 Lab results: Laboratory Results - last 24 hr 04/13/20 04/13/20 04/13/20 05:28 05:28 05:28 WBC 8.6 Cancelled RBC 4.44 L Cancelled Hgb 13.7 L Cancelled Hct 41.8 L Cancelled MCV 94.1 Cancelled MCH 30.9 Cancelled MCHC 32.8 Cancelled RDW 13.1 Cancelled Plt Count 201 Cancelled MPV 11.1 Cancelled Immature Gran % (Auto) 0.5 H Neut % (Auto) 81.3 H Lymph % (Auto) 10.0 L [place] % (Auto) 7.7 Eos % (Auto) 0.4 Baso % (Auto) 0.1 Lymph # (Auto) 0.9 L [place] # (Auto) 0.7 Eos # (Auto) 0.0 Baso # (Auto) 0.0 Abs Immat Gran (auto) 0.04 H Absolute Neuts (auto) 7.0 Absolute Nucleated RBC 0.000 Cancelled Nucleated RBC % (auto) 0.0 Cancelled Sodium Cancelled Potassium Cancelled Chloride Cancelled Carbon Dioxide Cancelled Anion Gap Cancelled BUN Cancelled Creatinine Cancelled Estim Creat Clear Calc Cancelled Estimated GFR Cancelled POC Glucose Random Glucose Cancelled Uric Acid Calcium Cancelled 04/13/20 04/13/20 05:28 07:36 WBC RBC Hgb Hct MCV MCH MCHC RDW Plt Count MPV Immature Gran % (Auto) Neut % (Auto) Lymph % (Auto) [place] % (Auto) Eos % (Auto) Baso % (Auto) Lymph # (Auto) [place] # (Auto) Eos # (Auto) Baso # (Auto) Abs Immat Gran (auto) Absolute Neuts (auto) Absolute Nucleated RBC Nucleated RBC % (auto) Sodium 135 Potassium 4.5 Chloride 98 Carbon Dioxide 28 Anion Gap 14 BUN 25 H Creatinine 1.17 Estim Creat Clear Calc 83.3 Estimated GFR > 60 POC Glucose 128 H Random Glucose 121 H Uric Acid 10.5 H Calcium 8.3 L Progress Note: A&P Assessment and plan (1) CHF (congestive heart failure): Status: Acute Assessment and Plan: Admit for syncope. Noted to have evidence of fluid overload. He has known Hx of CAD, prior CABG, CMP, ICD in place. He was diuresed with IV lasix with reported improvement in breathing and ankle edema. Cr 1.57 on admit, improved to 1.17 today. On exam he does have bilateral expiratory wheezes which he states are chronic. He does smoke. Echo shows EF 25-30%, mod LA dilation, normal RV and valves. No prior echo to compare. Has ICD so EF likely historically low. Can change back to PO lasix at 40mg bid. continue on usual home Carvedilol, atorvastatin, plavix, aldactone, entresto. Can be discharged from a cardiology perspective. He states he has visit with his area relief pilot Dr Astorga next week. (2) Syncope: Status: Acute Assessment and Plan: ICD interrogated yesterday - no alerts. (3) Coronary artery disease: Status: Acute Assessment and Plan: No report of anginal sounding CP. Continue usual home medical mgt. (4) Status post coronary artery bypass graft: Status: Acute (5) HTN (hypertension): Status: Acute Assessment and Plan: Adequately controlled at present. Fall Risk Details Current Medications: Current Medications Generic Name Dose Route Start Last Admin Trade Name Freq PRN Reason Stop Dose Admin Acetaminophen 650 mg 04/12/20 01:18 04/12/20 20:49 Acetaminophen 325 Mg Tablet PO 650 mg Q6H PRN Administration Pain, Mild (Pain Scale 1-3) Amiodarone HCl 200 mg 04/12/20 09:00 04/13/20 08:42 Amiodarone Hcl 200 Mg Tablet PO 200 mg DAILY STACY Administration Atorvastatin Calcium 40 mg 04/12/20 09:00 04/13/20 08:41 Atorvastatin Calcium 40 Mg Tablet PO 40 mg DAILY STACY Administration Carvedilol 12.5 mg 04/12/20 09:00 04/13/20 08:42 Carvedilol 12.5 Mg Tablet PO 12.5 mg BID STACY Administration Protocol Clopidogrel Bisulfate 75 mg 04/12/20 09:00 04/13/20 08:44 Clopidogrel Bisulfate 75 Mg Tablet PO 75 mg DAILY STACY Administration Docusate Sodium 100 mg 04/12/20 01:18 Docusate Sodium 100 Mg Capsule PO DAILY PRN Constipation Enoxaparin Sodium 40 mg 04/12/20 01:30 04/13/20 01:39 Enoxaparin Sodium 40 Mg/0.4 Ml Syringe SUBCUT 40 mg Q24H STACY Administration Furosemide 40 mg 04/13/20 09:00 04/13/20 08:41 Furosemide 40 Mg/4 Ml Vial IVPUSH 40 mg BID@0900,1800 STACY Administration Protocol Nicotine 7 mg 04/12/20 09:00 04/13/20 08:50 Nicotine 7 Mg Patch.[id number] TRANSDERMA 7 mg DAILY STACY Administration Ondansetron HCl 4 mg 04/12/20 01:18 Ondansetron Hcl 4 Mg/2 Ml Vial IVPUSH Q8H PRN Nausea and Vomiting Prednisone 15 mg 04/12/20 21:00 04/13/20 08:41 Prednisone 5 Mg Tablet PO 15 mg BID STACY Administration Sacubitril/Valsartan 1 tab 04/12/20 09:00 04/13/20 08:43 Sacubitril/Valsartan 1 Tab Tablet PO 1 tab BID STACY Administration Protocol Sertraline HCl 50 mg 04/12/20 09:00 04/13/20 08:44 Sertraline Hcl 50 Mg Tablet PO 50 mg DAILY STACY Administration Sodium Chloride 3 ml 04/12/20 08:00 04/13/20 08:44 0.9 % Sodium Chloride Flush 3 Ml Syringe IVFLUSH 3 ml QSHIFT STACY Administration Spironolactone 12.5 mg 04/12/20 09:00 04/13/20 08:43 Spironolactone 25 Mg Tablet PO 12.5 mg DAILY STACY Administration Protocol Time Spent With Patient Time: Total time spent is greater than 50% in coordination of care (as documented) at patient's floor/unit and/or counseling patient: Time with patient: 15 - 24 minutes
--- NOTE | 2020-04-13 17:00 | P.DS_ITS ---
DS: Providers Provider Date of admission: 04/12/20 00:09 Primary care physician: Unknown Physician Consults: 04/12/20 08:41 Consult to Cardiology Routine Consulting Provider: [facility] [place] [facility] Reason for consultation: Syncope. Defibrillator check. DS: Diagnosis Discharge Diagnosis (1) CHF (congestive heart failure): Status: Acute (2) Syncope: Status: Acute (3) Coronary artery disease: Status: Acute (4) Status post coronary artery bypass graft: Status: Acute (5) HTN (hypertension): Status: Acute (6) Acute gout: Status: Acute DS: Medications Discharge Medications Home Medications: Home Medications Medication Instructions Recorded Confirmed Entresto 1 tab PO BID 04/11/20 04/11/20 amiodarone 1 tab PO DAILY 04/11/20 04/11/20 atorvastatin 1 tab PO DAILY 04/11/20 04/11/20 carvedilol 1 tab PO BID 04/11/20 04/11/20 clopidogrel 1 tab PO DAILY 04/11/20 04/11/20 sertraline 1 tab PO DAILY 04/11/20 04/11/20 simvastatin 1 tab PO BEDTIME 04/11/20 04/11/20 spironolactone 0.5 tab PO DAILY 04/11/20 04/11/20 Previous Rx's Medication Instructions Recorded furosemide 1 tab PO BID@0900,1700 #60 tab 04/13/20 nicotine 7 mg TRANSDERMAL DAILY #14 ea 04/13/20 prednisone See Taper PO BID #36 tab 04/13/20 DS: Summary Hospital Course Hospital Course: this is a 64-year-old male with past medical history of CHFrEF, coronary artery disease status post CABG, HTN, hyperlipidemia, borderline diabetes , CVA, who presents to the hospital with complaints of syncopal episode. Patient reports that he was at home was sitting down got up to go outside and passed out. He reports he had no prodromal symptoms, he had a similar episode a week prior but did not want to come to the hospital. this lasted for few seconds, when he came about he was not postictal. His daughter witnessed the episode, and told him that when he went down he hit his head on the side of the covered. He reported no lightheadedness, no palpitations, no chest pain, he reports a chronic shortness of breath with no change, no changes in vision. Currently has no headache. He has been in his usual state of health. He was drinking more than usual today with his friends and was drawn clean the incident occurred but reports that when the previous incident happened last week he was sober and was not drinking. he reports that he has not been able to lie flat in his bed for almost a year now and reports some lower extremity edema mostly when he is on his boat and does not move around. Patient also reports incidence of defibrillator shocking him sometime in April of last year as well as May to June. He reports that he sometimes his defibrillator does record irregularities without him having any symptoms of it. On arrival to the ED hemodynamically stable with no significant abnormal vitals labs are significant for a BUN of 33 with a creatinine of 1.57, head and cervical spine CT negative, EKG shows paced rhythm Hospital course The patient was admitted to the hospital and treated with IV Lasix with fair response. He was evaluated by Cardiology as well who recommended increasing his Lasix dose at time of discharge. He was noticed 12 left big toe pain and swelling. Uric acid was found to be 10.5. He was started on prednisone tapering dose for total of 10 days. nonsteroidal pain medication avoid it given his history of cardiac disorder and being on Plavix. For regarding the episodes of syncope. No clear explanation was found giving normal EKG, echo and telemetry. Interrogation of his defibrillator did not show any abnormal rhythm for the last month. Could be a result of vasovagal attack from extra coughing or a result of postural hypotension even though the readings were done the hospital were within normal. Time Spent with Patient Time attestation: Total time spent providing and/or coordinating discharge services: Physical Exam Vital Signs: Vital Signs: Last Vital Signs Temp 98.1 F 04/13/20 11:11 Pulse 62 04/13/20 11:11 Resp 17 04/13/20 11:11 BP 140/68 H 04/13/20 11:11 Pulse Ox 97 04/13/20 11:11 Body Mass Index 41.6 Constitutional : Alert, oriented, not in distress Neck : Normal inspection, Supple Cardiovascular : RRR, S1 S2, no lower extremity edema Respiratory : Good bilateral air entry, no crackles, wheezes or rhonchi Gastrointestinal: soft, lax, Normal bowel sounds, Non tender Skin : Warm/Dry, No rash, left big toe swelling and tenderness Neurological : Alert & oriented x3, No focal deficit DS: Data Data Completed and Pending Labs on day of discharge: 04/11/20 21:48 EKG Documentation DIRECTED Glucose, blood poc .Now 04/11/20 21:50 Glucose, Whole Blood Routine 04/11/20 22:22 Continuous Cardiac Monitoring NOW Continuous pulse oximetry .Once CT cervical spine wo con Stat CT head/brain wo con Stat 04/11/20 22:26 EKG Documentation DIRECTED 04/11/20 22:30 0.9 % Sodium Chloride [Ns] 1,000 ml IVCONT 999 mls/hr 04/11/20 22:45 COVID-19 ID NOW ([place]) Stat 04/11/20 22:50 B Type Natriuretic Peptide Stat Basic Metabolic Panel Stat Complete Blood Count Auto Diff Stat Ethanol Stat Lipase Stat Liver Panel Stat Partial Thromboplastin Time Stat Prothrombin Time INR Stat Troponin-I High Sensitivity Stat 04/12/20 XR chest 1V Stat 04/12/20 00:02 Transfer Order Routine 04/12/20 00:03 Code Status Routine 04/12/20 01:18 Acetaminophen [Tylenol] 650 mg PO Q6H PRN Docusate Sodium [Colace] 100 mg PO DAILY PRN ondansetron HCL [Zofran] 4 mg IVPUSH Q8H PRN 04/12/20 01:18 Ambulate QSHIFT WHILE AWAKE Assess CIWA scale Q4HR IV insert/maintain Q4HR Intake and Output Q8HR Vital Signs Q4HR 04/12/20 01:30 Enoxaparin Sodium [Lovenox] 40 mg SUBCUT Q24H 04/12/20 01:47 RT Smoking Initial Cessation ONCE 04/12/20 02:42 Vital Signs, Orthostatic NOW 04/12/20 03:05 Add Laboratory Test Stat 04/12/20 07:10 Glucose, Whole Blood Routine 04/12/20 08:00 0.9 % Sodium Chloride Flush [NS Flush] 3 ml IVFLUSH QSHIFT 04/12/20 08:43 EKG Documentation DIRECTED 04/12/20 09:00 Amiodarone HCL [Cordarone] 200 mg PO DAILY Atorvastatin Calcium [Lipitor] 40 mg PO DAILY Clopidogrel Bisulfate [Plavix] 75 mg PO DAILY Flu Vacc [id number](6mos up)/PF [Fluarix Quad [id number]] 0.5 ml IM .ONCE ONE Furosemide [Lasix] 40 mg PO DAILY Nicotine [Nicoderm] 7 mg TRANSDERMA DAILY Sacubitril/Valsartan [Entresto mg] 1 tab PO BID Sertraline HCL [Zoloft] 50 mg PO DAILY Spironolactone [Aldactone] 12.5 mg PO DAILY carvediloL [Coreg] 12.5 mg PO BID 04/12/20 Breakfast Regular Diet 04/12/20 11:15 Glucose, Whole Blood Routine 04/12/20 12:57 Vital Signs, Orthostatic NOW 04/12/20 13:38 Furosemide [Lasix] 60 mg IVPUSH ONCE ONE 04/12/20 14:01 Physical Therapy Eval & Treat NEEDED 04/12/20 16:00 CA echo transthoracic complete Routine 04/12/20 18:37 NaPROXEN [Naprosyn] 500 mg PO ONCE ONE 04/12/20 21:00 predniSONE 15 mg PO BID simvastatin 1 tab PO BEDTIME 04/13/20 05:28 Basic Metabolic Panel DAILY@0600 Complete Blood Count Auto Diff Routine Uric Acid Routine 04/13/20 07:36 Glucose, Whole Blood Routine 04/13/20 09:00 Furosemide [Lasix] 40 mg IVPUSH BID@0900,1800 04/13/20 11:31 Add Laboratory Test Urgent Laboratory Last Values WBC 8.6 X10*3/uL (4.8-10.8) 04/13/20 05:28 WBC Cancelled 04/13/20 05:28 RBC 4.44 X10*6/uL (4.60-5.80) L 04/13/20 05:28 RBC Cancelled 04/13/20 05:28 Hgb 13.7 g/dl (14.0-18.0) L 04/13/20 05:28 Hgb Cancelled 04/13/20 05:28 Hct 41.8 % (42-52) L 04/13/20 05:28 Hct Cancelled 04/13/20 05:28 MCV 94.1 fL (80-98) 04/13/20 05:28 MCV Cancelled 04/13/20 05:28 MCH 30.9 pg (27.0-33.0) 04/13/20 05:28 MCH Cancelled 04/13/20 05:28 MCHC 32.8 g/dl (31.0-36.0) 04/13/20 05:28 MCHC Cancelled 04/13/20 05:28 RDW 13.1 % (11.0-16.0) 04/13/20 05:28 RDW Cancelled 04/13/20 05:28 Plt Count 201 X10*3/uL (160-400) 04/13/20 05:28 Plt Count Cancelled 04/13/20 05:28 MPV 11.1 fL (9.4-12.4) 04/13/20 05:28 MPV Cancelled 04/13/20 05:28 Immature Gran % (Auto) 0.5 % (0.0-0.4) H 04/13/20 05:28 Neut % (Auto) 81.3 % (45-73) H 04/13/20 05:28 Lymph % (Auto) 10.0 % (20-40) L 04/13/20 05:28 [place] % (Auto) 7.7 % (2-11) 04/13/20 05:28 Eos % (Auto) 0.4 % (0-4) 04/13/20 05:28 Baso % (Auto) 0.1 % (0-2) 04/13/20 05:28 Lymph # (Auto) 0.9 X10*3/uL (1.2-4.9) L 04/13/20 05:28 [place] # (Auto) 0.7 X10*3/uL (0.1-1.2) 04/13/20 05:28 Eos # (Auto) 0.0 X10*3/uL (0.0-0.4) 04/13/20 05:28 Baso # (Auto) 0.0 X10*3/uL (0.0-0.2) 04/13/20 05:28 Abs Immat Gran (auto) 0.04 X10*3/uL (0.00-0.03) H 04/13/20 05:28 Absolute Neuts (auto) 7.0 X10*3/uL (2.0-8.3) 04/13/20 05:28 Absolute Nucleated RBC 0.000 X10*3/uL (0.0-0.012) 04/13/20 05:28 Absolute Nucleated RBC Cancelled 04/13/20 05:28 Nucleated RBC % (auto) 0.0 /100WBC (0.0-0.2) 04/13/20 05:28 Nucleated RBC % (auto) Cancelled 04/13/20 05:28 PT 11.5 SEC (10.8-13.0) 04/11/20 22:50 INR 1.0 (0.9-1.1) 04/11/20 22:50 APTT 30.8 SEC (24.1-38.0) 04/11/20 22:50 Sodium 135 mmol/L (135-145) 04/13/20 05:28 Sodium Cancelled 04/13/20 05:28 Potassium 4.5 mmol/l (3.3-5.1) 04/13/20 05:28 Potassium Cancelled 04/13/20 05:28 Chloride 98 mmol/L (96-108) 04/13/20 05:28 Chloride Cancelled 04/13/20 05:28 Carbon Dioxide 28 mmol/L (22-29) 04/13/20 05:28 Carbon Dioxide Cancelled 04/13/20 05:28 Anion Gap 14 (12-20) 04/13/20 05:28 Anion Gap Cancelled 04/13/20 05:28 BUN 25 mg/dL (9-16) H 04/13/20 05:28 BUN Cancelled 04/13/20 05:28 Creatinine 1.17 mg/dL (0.5-1.4) 04/13/20 05:28 Creatinine Cancelled 04/13/20 05:28 Estim Creat Clear Calc 83.3 04/13/20 05:28 Estim Creat Clear Calc Cancelled 04/13/20 05:28 Estimated GFR > 60 04/13/20 05:28 Estimated GFR Cancelled 04/13/20 05:28 POC Glucose 128 mg/dL (60-115) H 04/13/20 07:36 Random Glucose 121 mg/dL (60-115) H 04/13/20 05:28 Random Glucose Cancelled 04/13/20 05:28 Uric Acid 10.5 mg/dL (3.4-7.0) H 04/13/20 05:28 Calcium 8.3 mg/dL (8.4-10.2) L 04/13/20 05:28 Calcium Cancelled 04/13/20 05:28 Total Bilirubin 0.2 mg/dL (0.0-1.0) 04/11/20 22:50 Direct Bilirubin < 0.2 mg/dL (0.0-0.5) 04/11/20 22:50 AST 17 U/L (5-37) 04/11/20 22:50 ALT 27 U/L (0-40) 04/11/20 22:50 Alkaline Phosphatase 55 U/L (39-117) 04/11/20 22:50 Troponin I High Sens 16.2 ng/L (<3.5-35.0) 04/11/20 22:50 B-Natriuretic Peptide 136 pg/mL (<100) H 04/11/20 22:50 Total Protein 6.8 g/dL (6.5-8.0) 04/11/20 22:50 Albumin 4.4 g/dL (3.5-5.0) 04/11/20 22:50 Lipase 35 U/L (8-78) 04/11/20 22:50 Ethyl Alcohol 148 mg/dL 04/11/20 22:50 COVID-19 (NELLIE) Negative (Negative) 04/11/20 22:45 COVID-19 Clin Com See Note 04/11/20 22:45 Discharge Plan Discharge Patient Disposition: Home, Self-Care Referrals: Physician,Unknown [Primary Care Provider] - Discharge Medications: New nicotine 7 mg/24 hr Patch 24 Hour 7 mg transdermal DAILY Qty: 14 RF: 0 prednisone 5 mg tablet See Taper mg PO BID Qty: 36 RF: 0 Continued atorvastatin 40 mg tablet 1 tab PO DAILY RF: 0 carvedilol 12.5 mg tablet 1 tab PO BID RF: 0 amiodarone 200 mg tablet 1 tab PO DAILY RF: 0 clopidogrel 75 mg tablet 1 tab PO DAILY RF: 0 simvastatin 80 mg tablet 1 tab PO BEDTIME RF: 0 spironolactone 25 mg tablet 0.5 tab PO DAILY RF: 0 sertraline 50 mg tablet 1 tab PO DAILY RF: 0 Entresto 24-26 mg tablet 1 tab PO BID RF: 0 Changed furosemide 40 mg tablet 1 tab PO BID@0900,1700 Qty: 60 RF: 0 Discharge Orders: Discharge Order (Routine); Ordered 04/13/20 Ordered By: Lluvia Han Diet: advance to usual diet and low salt diet Activity on Discharge: As tolerated Discharge Date/Time: 04/13/20 12:42 Visit Report Forms: Patient Portal Discharge page Care Plan Goals: Read below Health Concerns: read below Plan of Treatment: you were admitted to the hospital for evaluation of syncopal episode. EKG, heart enzymes and heart monitoring were negative for any acute findings. Your blood pressure was noticed to be within normal to elevated during the hospital stay. You were evaluated by Cardiology who did interrogation for your defibrillator showing no abnormal heart rhythm over the last month. Your symptoms could be result of drop in your blood pressure upon standing or vasovagal attack from excessive coughing. We advise you to use nicotine patches for the time being your uric acid was noticed to be elevated and you started complaining of left big toe pain. Treated as gout attack. Continue prednisone as prescribed for treatment of gout Continue your home medications as prescribed. Monitor your weight and report any changes to your PCP to follow up with PCP next week for gout evaluation and possible referral for pulmonary function test
== END 2020-04-13 12:42 | disposition home or self-care (01) ==
LOC: HO.ED 04-12 00:10 → HO.IMC 04-12 06:29
PROVIDERS: Admitting Provider Internal Medicine; Emergency Provider Emergency Medicine; Visit Provider Student in an Organized Health Care Education/Training Program
DX: R55 Syncope and collapse (principal); I50.20 Unspecified systolic (congestive) heart failure; I25.10 Atherosclerotic heart disease of native coronary artery without angina pectoris; I11.0 Hypertensive heart disease with heart failure; M10.9 Gout, unspecified; E11.9 Type 2 diabetes mellitus without complications; E78.5 Hyperlipidemia, unspecified; E78.00 Pure hypercholesterolemia, unspecified; I42.9 Cardiomyopathy, unspecified; F10.10 Alcohol abuse, uncomplicated; S09.90XA Unspecified injury of head, initial encounter; Z23 Encounter for immunization; W18.39XA Other fall on same level, initial encounter; Y93.9 Activity, unspecified; Y99.8 Other external cause status; Y92.009 Unspecified place in unspecified non-institutional (private) residence as the place of occurrence of the external cause; Z72.0 Tobacco use; Z95.1 Presence of aortocoronary bypass graft; Z20.828 Contact with and (suspected) exposure to other viral communicable diseases; Z86.73 Personal history of transient ischemic attack (TIA), and cerebral infarction without residual deficits; Z95.5 Presence of coronary angioplasty implant and graft; Z95.810 Presence of automatic (implantable) cardiac defibrillator; Z79.899 Other long term (current) drug therapy
CPT/HCPCS: 36415; 70450; 71045; 72125; 80048; 80076; 80320; 82947; 83690; 83880; 84484; 84550; 85025; 85610; 85730; 87635; 90471; 90686; 93005; 93306; 96360; 97161; 99219; 99285; J1650; J1940

== ENCOUNTER 2021-01-06 10:40 | Emergency (ER) | payer MEDICARE, SELFPAY ==
--- NOTE | ~2021-01-06 | XR_ITS ---
EXAMINATION: LEFT ANKLE 3 VIEWS LEFT FOOT 3 VIEWS RIGHT ANKLE 3 VIEWS RIGHT FOOT 3 VIEWS CLINICAL INFORMATION: Swelling. Question infection. COMPARISON: None TECHNIQUE: As above nonweightbearing FINDINGS: Left foot and ankle: Diffuse soft tissue swelling. No soft tissue air or radiopaque foreign body. Monckeberg calcific lesions suggests diabetes. Soft tissue swelling especially about the mid and forefoot without underlying air. Severe degeneration the first metatarsophalangeal joint. Appearance suggests nonspecific arthritic changes possibly neuropathic joint. No periosteal new bone formation. Right ankle and foot: Similar appearance without definitive radiographic findings of osteomyelitis about the ankle. The mid and forefoot also demonstrate some soft tissue swelling but no arthritic changes underlying changes of osteomyelitis. Calcaneal plantar spurring. XR/XR ankle RT 2V IMPRESSION: Nonspecific soft tissue swelling bilaterally as above. No definite radiographic findings of osteomyelitis. The left first metatarsophalangeal joint is markedly abnormal favoring a neuropathic joint. Correlate clinically to exclude septic arthritis.
--- NOTE | ~2021-01-06 | XR_ITS ---
EXAMINATION: LEFT ANKLE 3 VIEWS LEFT FOOT 3 VIEWS RIGHT ANKLE 3 VIEWS RIGHT FOOT 3 VIEWS CLINICAL INFORMATION: Swelling. Question infection. COMPARISON: None TECHNIQUE: As above nonweightbearing FINDINGS: Left foot and ankle: Diffuse soft tissue swelling. No soft tissue air or radiopaque foreign body. Monckeberg calcific lesions suggests diabetes. Soft tissue swelling especially about the mid and forefoot without underlying air. Severe degeneration the first metatarsophalangeal joint. Appearance suggests nonspecific arthritic changes possibly neuropathic joint. No periosteal new bone formation. Right ankle and foot: Similar appearance without definitive radiographic findings of osteomyelitis about the ankle. The mid and forefoot also demonstrate some soft tissue swelling but no arthritic changes underlying changes of osteomyelitis. Calcaneal plantar spurring. XR/XR foot RT 2V IMPRESSION: Nonspecific soft tissue swelling bilaterally as above. No definite radiographic findings of osteomyelitis. The left first metatarsophalangeal joint is markedly abnormal favoring a neuropathic joint. Correlate clinically to exclude septic arthritis.
--- NOTE | ~2021-01-06 | US_ITS ---
EXAMINATION: US VENOUS ULTRASOUND WITH DOPPLER LOWER EXTREMITY, BILATERAL CLINICAL INFORMATION: Pain COMPARISON: None TECHNIQUE: Ultrasound of the deep veins is performed from the hip to the calf with compression sonography and color and pulse Doppler assessment. Spectral analysis with color-flow imaging is performed. FINDINGS: RIGHT: There is normal venous compression and respiratory variation and augmented flow. The visualized common femoral vein, superficial femoral vein, profunda femoral vein, popliteal vein, and the trifurcation region shows no evidence of deep venous thrombosis. There is no significant popliteal fossa cyst. LEFT: There is normal venous compression and respiratory variation and augmented flow. The visualized common femoral vein, superficial femoral vein, profunda femoral vein, popliteal vein, and the trifurcation region shows no evidence of deep venous thrombosis. There is no significant popliteal fossa cyst. If the patient's symptoms persist, followup ultrasound in 5 days 7 days might be of value to exclude proximal propagation from a non-visualized calf vein. US/US venous duplex LE BI IMPRESSION: No DVT demonstrated in the both right and left lower extremities.
--- NOTE | ~2021-01-06 | XR_ITS ---
EXAMINATION: LEFT ANKLE 3 VIEWS LEFT FOOT 3 VIEWS RIGHT ANKLE 3 VIEWS RIGHT FOOT 3 VIEWS CLINICAL INFORMATION: Swelling. Question infection. COMPARISON: None TECHNIQUE: As above nonweightbearing FINDINGS: Left foot and ankle: Diffuse soft tissue swelling. No soft tissue air or radiopaque foreign body. Monckeberg calcific lesions suggests diabetes. Soft tissue swelling especially about the mid and forefoot without underlying air. Severe degeneration the first metatarsophalangeal joint. Appearance suggests nonspecific arthritic changes possibly neuropathic joint. No periosteal new bone formation. Right ankle and foot: Similar appearance without definitive radiographic findings of osteomyelitis about the ankle. The mid and forefoot also demonstrate some soft tissue swelling but no arthritic changes underlying changes of osteomyelitis. Calcaneal plantar spurring. XR/XR foot LT 2V IMPRESSION: Nonspecific soft tissue swelling bilaterally as above. No definite radiographic findings of osteomyelitis. The left first metatarsophalangeal joint is markedly abnormal favoring a neuropathic joint. Correlate clinically to exclude septic arthritis.
--- NOTE | ~2021-01-06 | XR_ITS ---
EXAMINATION: LEFT ANKLE 3 VIEWS LEFT FOOT 3 VIEWS RIGHT ANKLE 3 VIEWS RIGHT FOOT 3 VIEWS CLINICAL INFORMATION: Swelling. Question infection. COMPARISON: None TECHNIQUE: As above nonweightbearing FINDINGS: Left foot and ankle: Diffuse soft tissue swelling. No soft tissue air or radiopaque foreign body. Monckeberg calcific lesions suggests diabetes. Soft tissue swelling especially about the mid and forefoot without underlying air. Severe degeneration the first metatarsophalangeal joint. Appearance suggests nonspecific arthritic changes possibly neuropathic joint. No periosteal new bone formation. Right ankle and foot: Similar appearance without definitive radiographic findings of osteomyelitis about the ankle. The mid and forefoot also demonstrate some soft tissue swelling but no arthritic changes underlying changes of osteomyelitis. Calcaneal plantar spurring. XR/XR ankle LT min 3V IMPRESSION: Nonspecific soft tissue swelling bilaterally as above. No definite radiographic findings of osteomyelitis. The left first metatarsophalangeal joint is markedly abnormal favoring a neuropathic joint. Correlate clinically to exclude septic arthritis.
--- NOTE | ~2021-01-06 | XR_ITS ---
EXAMINATION: XR chest 1V CLINICAL INFORMATION: Reason for Exam fluid overload? COMPARISON: Prior chest x-ray 04/12/2020 TECHNIQUE: XR chest 1V Tubes and lines: Dual electrode cardiac device embedded in the left chest wall properly positioned unchanged. Lungs and pleura: Mild vascular congestion without marco failure. Heart and mediastinum: Heart is enlarged.. Bones/soft tissue: Skeletal structures included are normal for patient's age. XR/XR chest 1V IMPRESSION: Cardiomegaly, mild vascular congestion without marco failure.
[2021-01-06 11:20] VITALS: BP 107/46; PULSE 55; RESP 20; TEMP 36.9; O2SAT 98; BMI 40.1
[2021-01-06 11:49] LABS: MANUAL DIFF FLAG NO
[2021-01-06 11:55] LABS: Basophils Percent Auto 0.1 % (0-2); Eosinophils Absolute Auto 0.2 X10*3/uL (0.0-0.4); Eosinophils Percent Auto 2.1 % (0-4); Hematocrit 35.4 % (42-52); Hemoglobin 11.5 g/dl (14.0-18.0); Imm Gran Abs Auto 0.09 X10*3/uL (0.00-0.03); Lymphocytes Absolute Auto 0.8 X10*3/uL (1.2-4.9); Lymphocytes Percent Auto 9.3 % (20-40); Mean Corpuscular HGB Conc 32.5 g/dl (31.0-36.0); Mean Corpuscular Hemoglobin 29.9 pg (27.0-33.0); Mean Corpuscular Volume 92.2 fL (80-98); Mean Platelet Volume 10.5 fL (9.4-12.4); Monocytes Percent Auto 10.9 % (2-11); Neutrophils Absolute Auto 6.7 X10*3/uL (2.0-8.3); Neutrophils Percent Auto 76.6 % (45-73); Platelet Count 184 X10*3/uL (160-400); Red Blood Count 3.84 X10*6/uL (4.60-5.80); Red Cell Distribution Width 14.3 % (11.0-16.0); White Blood Count 8.7 X10*3/uL (4.8-10.8)
[2021-01-06 12:12] LABS: Anion Gap 12 (12-20); Blood Urea Nitrogen 21 mg/dL (9-16); Calcium 8.6 mg/dL (8.4-10.2); Carbon Dioxide 28 mmol/L (22-29); Chloride 100 mmol/L (96-108); Creatinine Clr Calc Pharmacy 74.2; Estimated Glomerular Filt Rate 55; Glucose Random 114 mg/dL (60-115); Potassium 4.1 mmol/L (3.3-5.1); Sodium 136 mmol/L (135-145)
--- NOTE | 2021-01-06 15:25 | ED_ITS ---
HPI - Extremity Problem General Chief complaint: Extremity Problem Stated complaint: swollen feet/ankles Time Seen by Provider: 01/06/21 15:07 Source: patient Mode of arrival: ambulatory Limitations: no limitations History of Present Illness HPI Narrative: Patient presents to ED for bilateral lower extremity feet/ankle swelling with pain. Patient denies any chest pain, shortness of breath, fever, chills, recent trauma lower extremities, calf pain, recent long travel, recent surgery. Patient states history of mild CHF and already on diuretics. Patient denies being bitten by any insects. Related Data Home Medications Medication Instructions Recorded Confirmed amiodarone 200 mg tablet 1 tab PO DAILY 04/11/20 04/11/20 atorvastatin 40 mg tablet 1 tab PO DAILY 04/11/20 04/11/20 carvedilol 12.5 mg tablet 1 tab PO BID 04/11/20 04/11/20 clopidogrel 75 mg tablet 1 tab PO DAILY 04/11/20 04/11/20 sacubitril 24 mg-valsartan 26 mg 1 tab PO BID 04/11/20 04/11/20 tablet (Entresto) sertraline 50 mg tablet 1 tab PO DAILY 04/11/20 04/11/20 simvastatin 80 mg tablet 1 tab PO BEDTIME 04/11/20 04/11/20 spironolactone 25 mg tablet 0.5 tab PO DAILY 04/11/20 04/11/20 Previous Rx's Medication Instructions Recorded furosemide 40 mg tablet 1 tab PO BID@0900,1700 #60 tab 04/13/20 nicotine 7 mg/24 hr daily 7 mg TRANSDERMAL DAILY #14 ea 04/13/20 transdermal patch prednisone 5 mg tablet See Taper PO BID #36 tab 04/13/20 cephalexin 500 mg capsule 500 mg PO QID #28 cap 01/06/21 doxycycline hyclate 100 mg capsule 100 mg PO BID 7 Days #14 cap 01/06/21 Allergies Allergy/AdvReac Type Severity Reaction Status Date / Time No Known Allergies Allergy Verified 04/11/20 21:54 Review of Systems Review of Systems: Yes all other systems are reviewed and are negative Constitutional: Constitutional: Reports as per HPI and Reports no additional constitutional complaints Eyes: Eyes: Reports as per HPI and Reports no additional eye complaints ENT: Reports system reviewed and no additional complaints, except as documented and Reports as per HPI Cardiovascular: Cardiovascular: Reports as per HPI and Reports painful fingertips Respiratory: Respiratory: Reports as per HPI and Reports no additional respiratory complaints Gastrointestinal: Gastrointestinal: Reports as per HPI and Reports no additional gastrointestinal complaints Genitourinary: Genitourinary: Reports no additional male genitourinary complaints and Reports as per HPI Musculoskeletal: Musculoskeletal: Reports no additional musculoskeletal complaints and Reports as per HPI Comments: Bilateral lower extremity foot ankle swelling. Neurologic: Reports system reviewed and no additional complaints, except as documented and Reports as per HPI Psychiatric: Psychiatric: Reports no additional psychiatric complaints and Reports as per HPI [facility] Past Medical History Medical History (Updated 01/07/21 @ 00:01 by Background Daemon) Alcohol abuse Borderline diabetes mellitus CHF (congestive heart failure) Coronary artery disease CVA (cerebral vascular accident) Head injury High cholesterol HTN (hypertension) Syncope Surgical History (Updated 04/21/20 @ 00:00 by Background Daemon) H/O heart bypass surgery Status post coronary artery bypass graft Stented coronary artery Social History Social History Household Members: Children Housing: House Do you presently have visiting nurse or other home services: No Alcohol intake: current Alcohol intake frequency: 3 or more drinks per day Years Smoked: 50 Substance Use Type: Marijuana Advance Directives: Yes Advance Directives Information Provided: Yes Advance Directives on File: No service: No Current occupational status: disabled Physical Exam Vital Signs: Vital Signs: Last Vital Signs Temp 98.1 F 01/06/21 18:00 Pulse 58 01/06/21 18:00 Resp 16 01/06/21 18:00 BP 107/53 L 01/06/21 18:00 Pulse Ox 97 01/06/21 18:00 Body Mass Index 40.1 Const: General: cooperative, healthy appearing, comfortable, no acute distress, well developed, alert and awake Orientation/consciousness: patient oriented x3 HENMT: Head: Yes normal to inspection, Yes No palpable skull fracture present, Yes normocephalic and Yes atraumatic Eyes: General: appearance normal, both eyes and all related structures Neck: Neck: Yes normal visual inspection, Yes full ROM, Yes no lymphadenopathy, Yes no meningeal signs, Yes trachea midline, Yes supple and No tender Chest: Chest palpation & inspection: normal inspection of the chest and normal palpation of entire chest wall Breast/axilla palpation: normal palpation of the breasts Resp: Effort & Inspection: normal respiratory effort and able to speak in complete sentences Auscultation: clear to auscultation bilaterally Cardio: Jugular venous distension: no JVD Heart sounds: S1 normal heart sound present and S2 normal heart sound present GI: Inspection: Yes normal to inspection and No abdominal wall ecchymosis Palpation (GI): Soft to palpation, not firm, nontender, no guarding and not rigid : General: No CVA tenderness and Yes no CVA tenderness Back/Spine/Pelvis: Back: no CVA tenderness, No CVA tenderness and No back tenderness Skin: General skin exam: no rashes or lesions noted and elasticity normal Neuro: General: patient oriented x3, gait normal, no meningeal signs and CN's II-XI intact bilaterally Cranial nerves: Yes CN's II-XII intact bilaterally Extrem: Other: Bilateral feet positive for ankle and foot swelling with pitting edema with slight erythema that is warm and tender on the dorsal aspect of foot without any wounds, ulcer, pus discharge, foul odor, or deformity. Vascular/motor/neuro exam intact bilaterally. Negative for any ecchymosis/deformity/crepitus. Course Course Course Narrative: Patient had rapid medical screening. Reevaluation(s) Reevaluation #1: BNP added. Lower extremity ultrasound and bilateral x-rays ordered EKG ordered. Chest x-ray ordered to check for fluid overload. No need for troponin. Patient is not having any chest pain or shortness of breath. Vital signs stable. Time: 15:00 Reevaluation #2: BNP came back only 378. Chest x-ray negative for fluid overload. Bilateral ultrasound negative for DVT. Patient already on Lasix and spironolactone. Patient phone follow-up with PCP and recommended compression stockings. X-rays negative for osteomyelitis or fracture. Re-evaluated patient has both foot and they had some slight redness probably more venous stasis but patient states there are new and slightly warm. Will discharge with antibiotics. No elevation white blood cell count. No admission needed. Patient denies any chest pain or shortness of breath. Patient vital signs stable Time: 18:57 MDM - Extremity (Nontraumatic) MDM Narrative Medical decision making narrative: Venous stasis. Mild CHF bowel cellulitis Lab Data Result diagrams: 01/06/21 11:43 01/06/21 11:43 Labs: Lab Results 01/06/21 01/06/21 01/06/21 Range/Units 11:43 11:43 15:52 WBC 8.7 (4.8-10.8) X10*3/uL RBC 3.84 L (4.60-5.80) X10*6/uL Hgb 11.5 L (14.0-18.0) g/dl Hct 35.4 L (42-52) % MCV 92.2 (80-98) fL MCH 29.9 (27.0-33.0) pg MCHC 32.5 (31.0-36.0) g/dl RDW 14.3 (11.0-16.0) % Plt Count 184 (160-400) X10*3/uL MPV 10.5 (9.4-12.4) fL Immature Gran % (Auto) 1.0 H (0.0-0.4) % Neut % (Auto) 76.6 H (45-73) % Lymph % (Auto) 9.3 L (20-40) % [place] % (Auto) 10.9 (2-11) % Eos % (Auto) 2.1 (0-4) % Baso % (Auto) 0.1 (0-2) % Lymph # (Auto) 0.8 L (1.2-4.9) X10*3/uL [place] # (Auto) 1.0 (0.1-1.2) X10*3/uL Eos # (Auto) 0.2 (0.0-0.4) X10*3/uL Baso # (Auto) 0.0 (0.0-0.2) X10*3/uL Abs Immat Gran (auto) 0.09 H (0.00-0.03) X10*3/uL Absolute Neuts (auto) 6.7 (2.0-8.3) X10*3/uL Absolute Nucleated RBC 0.000 (0.0-0.012) X10*3/uL Nucleated RBC % (auto) 0.0 (0.0-0.2) /100WBC Sodium 136 (135-145) mmol/L Potassium 4.1 (3.3-5.1) mmol/L Chloride 100 (96-108) mmol/L Carbon Dioxide 28 (22-29) mmol/L Anion Gap 12 (12-20) BUN 21 H (9-16) mg/dL Creatinine 1.31 (0.5-1.4) mg/dL Estim Creat Clear Calc 74.2 Estimated GFR 55 Random Glucose 114 (60-115) mg/dL Calcium 8.6 (8.4-10.2) mg/dL B-Natriuretic Peptide 378 H (<100) pg/mL ECG Data Interpretation: Sinus bradycardia. Left axis deviation. Right bundle branch block. Ventricular rate 57. Pr interval 196. QRS 168. QTC 521. Negative STEMI Discharge Plan Discharge Clinical Impression: Venous stasis, Cellulitis, Lower extremity edema, Mild congestive heart failure Patient Disposition: Home, Self-Care Instructions: Heart Failure (ED), Cellulitis (ED), Venous Insufficiency (DC) Additional Instructions: Although your history of congestive heart failure your BNP and chest x-ray does not indicate fluid overload which can lead to respiratory distress. Labs and images negative for fluid overload. Bilateral extremity ultrasounds negative for blood clots. Bilateral x-ray negative for osteomyelitis. Negative for elevated white blood cell count. EKG negative for STEMI. You will be given antibiotics for possibility of mild cellulitis due to slight erythema on both feet which you states is new and slightly warm. Recommend elevation and compression stocking as venous insufficiency/stasis can lead to lower extemity swelling. Return to the ED for any chest pain, shortness of breath, worsening redness, development of red streaks, fever, chills, coughing up blood, or any other concerning symptoms. Continue taking Lasix and spironolactone as recommended by Your PCP. Please follow up with your PCP. Prescriptions: New cephalexin 500 mg capsule 500 mg PO QID Qty: 28 RF: 0 doxycycline hyclate 100 mg capsule 100 mg PO BID 7 Days Qty: 14 RF: 0 No Action atorvastatin 40 mg tablet 1 tab PO DAILY RF: 0 carvedilol 12.5 mg tablet 1 tab PO BID RF: 0 amiodarone 200 mg tablet 1 tab PO DAILY RF: 0 clopidogrel 75 mg tablet 1 tab PO DAILY RF: 0 simvastatin 80 mg tablet 1 tab PO BEDTIME RF: 0 spironolactone 25 mg tablet 0.5 tab PO DAILY RF: 0 sertraline 50 mg tablet 1 tab PO DAILY RF: 0 Entresto 24-26 mg tablet 1 tab PO BID RF: 0 nicotine 7 mg/24 hr Patch 24 Hour 7 mg transdermal DAILY Qty: 14 RF: 0 prednisone 5 mg tablet See Taper mg PO BID Qty: 36 RF: 0 furosemide 40 mg tablet 1 tab PO BID@0900,1700 Qty: 60 RF: 0 Interventions: ED Discharge Assessment Last Done: 01/06/21 19:42 Discharge Date/Time: 01/06/21 19:44 Print Language: [place]
[2021-01-06 15:54] VITALS: BP 107/51; PULSE 59; RESP 16; TEMP 36.9; O2SAT 95
[2021-01-06 16:28] LABS: B Type Natriuretic Peptide 378 pg/mL (<100)
--- NOTE | 2021-01-06 16:54 | ECG_ITS ---
Test Reason : PAINFUL EXTREMETIES Blood Pressure : / mmHG Vent. Rate : 057 BPM Atrial Rate : 057 BPM P-R Int : 196 ms QRS Dur : 168 ms QT Int : 536 ms P-R-T Axes : 043 -76 006 degrees QTc Int : 521 ms Sinus bradycardia Left axis deviation Right bundle branch block Possible Lateral infarct , age undetermined Inferior infarct (cited on or before 06-JAN-2021) Abnormal ECG When compared with ECG of 12-APR-2020 14:27, No significant change was found Referred By: Selvin Pederson Electronically Signed By:HAYES HUFFMAN
[2021-01-06 18:00] VITALS: BP 107/53; PULSE 58; RESP 16; TEMP 36.7; O2SAT 97
--- NOTE | 2021-01-06 18:29 | PC.NURSE ---
izabella [phone] daughter requesting update.
== END 2021-01-06 19:44 | disposition home or self-care (01) ==
PROVIDERS: Physician Assistant; Emergency Provider Internal Medicine; PCP Internal Medicine
DX: I11.0 Hypertensive heart disease with heart failure (principal); I50.9 Heart failure, unspecified; I87.8 Other specified disorders of veins; L03.115 Cellulitis of right lower limb; L03.116 Cellulitis of left lower limb; R60.0 Localized edema; M79.662 Pain in left lower leg; M79.661 Pain in right lower leg; R73.03 Prediabetes; E78.5 Hyperlipidemia, unspecified; Z79.02 Long term (current) use of antithrombotics/antiplatelets; Z79.899 Other long term (current) drug therapy; Z86.73 Personal history of transient ischemic attack (TIA), and cerebral infarction without residual deficits
CPT/HCPCS: 36415; 71045; 73600; 73610; 73620; 80048; 83880; 85025; 93005; 93970; 99284

== ENCOUNTER 2021-11-22 12:06 | Emergency (ER) | payer MEDICARE, SELFPAY ==
--- NOTE | ~2021-11-22 | XR_ITS ---
EXAMINATION: XR CHEST CLINICAL INFORMATION: Chest pain. COMPARISON: 01/06/2021 chest radiograph. TECHNIQUE: Frontal view of the chest was obtained. FINDINGS: Support devices: Left-sided pacemaker device appears in good position. Multilevel sternotomy wires are intact. Again seen is mild prominence of the pulmonary vasculature and chronic silhouette without significant change. The mediastinal structures are unremarkable. XR/XR chest 1V IMPRESSION: Mild prominence of the pulmonary vasculature and cardiac silhouette appears similar to the previous study and is likely baseline for this patient. No definitive new abnormality.
[2021-11-22 12:25] VITALS: BP 102/49; PULSE 58; RESP 20; TEMP 36.8; O2SAT 93; BMI 44.1
--- NOTE | 2021-11-22 13:25 | ED.URI ---
HPI - URI/Sore Throat General Chief Complaint: Upper Respiratory Symptoms Stated Complaint: trouble breathing, chest cold Time Seen by Provider: 11/22/21 13:25 Source: patient Mode of arrival: ambulatory Limitations: no limitations History of Present Illness HPI Narrative: Patient feels short of breath and is worried that he is having congestive heart failure and COPD MD elicited complaint: other (shortness of breath) Onset (ago): week(s) Consistency: progressively worsening Severity: moderate Exacerbating factors: other (lying down) Associated symptoms: cough and shortness of breath Related Data Home Medications Medication Instructions Recorded Confirmed amiodarone 200 mg tablet 1 tab PO DAILY 04/11/20 04/11/20 atorvastatin 40 mg tablet 1 tab PO DAILY 04/11/20 04/11/20 carvedilol 12.5 mg tablet 1 tab PO BID 04/11/20 04/11/20 clopidogrel 75 mg tablet 1 tab PO DAILY 04/11/20 04/11/20 sacubitril 24 mg-valsartan 26 mg 1 tab PO BID 04/11/20 04/11/20 tablet (Entresto) sertraline 50 mg tablet 1 tab PO DAILY 04/11/20 04/11/20 simvastatin 80 mg tablet 1 tab PO BEDTIME 04/11/20 04/11/20 spironolactone 25 mg tablet 0.5 tab PO DAILY 04/11/20 04/11/20 Previous Rx's Medication Instructions Recorded furosemide 40 mg tablet 1 tab PO BID@0900,1700 #60 tabs 04/13/20 nicotine 7 mg/24 hr daily 7 mg transdermal DAILY #14 ea 04/13/20 transdermal patch prednisone 5 mg tablet See Taper PO BID #36 tabs 04/13/20 cephalexin 500 mg capsule 500 mg PO QID #28 caps 01/06/21 doxycycline hyclate 100 mg capsule 100 mg PO BID 7 days #14 caps 01/06/21 albuterol sulfate 90 mcg/actuation 1 inh inhalation QID PRN shortness 11/22/21 aerosol inhaler of breath or wheezing #8.5 grams ipratropium bromide 17 2 puff inhalation QID #12.9 grams 11/22/21 mcg/actuation HFA aerosol inhaler (Atrovent HFA) Allergies Allergy/AdvReac Type Severity Reaction Status Date / Time No Known Allergies Allergy Verified 11/22/21 12:25 Review of Systems Constitutional: Constitutional: Reports no additional constitutional complaints Eyes: Eyes: Reports no additional eye complaints ENT: Denies dizziness Cardiovascular: Cardiovascular: Reports no additional cardiovascular complaints Respiratory: Respiratory: Reports as per HPI Gastrointestinal: Gastrointestinal: Reports no additional gastrointestinal complaints Musculoskeletal: Musculoskeletal: Reports no additional musculoskeletal complaints Integumentary/Breasts: Skin/Breast: Denies rash Neurologic: Reports system reviewed and no additional complaints, except as documented, Denies dizziness and Denies Sensory deficit (Neuro) Psychiatric: Psychiatric: Denies anxiety [facility] Past Medical History Medical History Alcohol abuse Borderline diabetes mellitus CHF (congestive heart failure) Coronary artery disease CVA (cerebral vascular accident) Head injury High cholesterol HTN (hypertension) Syncope Surgical History H/O heart bypass surgery Status post coronary artery bypass graft Stented coronary artery Social History Social History Household Members: Children Housing: House Do you presently have visiting nurse or other home services: No Alcohol intake: current Alcohol intake frequency: 3 or more drinks per day Years Smoked: 50 Substance Use Type: Marijuana Advance Directives: Yes Advance Directives on File: Yes Advance Directives Date on File: 11/22/21 service: No Current occupational status: disabled Physical Exam Vital Signs: Vital Signs: Last Vital Signs Temp 98.3 F 11/22/21 12:25 Pulse 58 11/22/21 13:54 Resp 20 11/22/21 13:54 BP 102/49 L 11/22/21 12:25 Pulse Ox 93 11/22/21 12:25 O2 Del Method 11/22/21 12:25 BMI result Body Mass Index 44.1 Const: Other: obese male no acute distress Orientation/consciousness: oriented to person and patient oriented x3 Limitations: no limitations HEENT: Head: Yes normal to inspection Ears: external ears normal General nose exam: Normal external nose present Mouth: Normal oral and palatal mucosa present and oropharynx normal Throat: Yes posterior oropharynx normal Eyes: General: appearance normal, both eyes and all related structures Neck: Other: supple Neck: Yes normal visual inspection Chest: Chest palpation & inspection: normal inspection of the chest Resp: Other: slight wheeze and crackles Cardio: Jugular venous distension: no JVD Rate: regular rate Rhythm: regular rhythm Heart sounds: S1 normal heart sound present and S2 normal heart sound present GI: Inspection: Yes normal to inspection Palpation (GI): Soft to palpation, nontender and No hepatosplenomegaly present Auscultation: normal bowel sounds : General: Yes no CVA tenderness Back/Spine/Pelvis: Back: no CVA tenderness Skin: General skin exam: no rashes or lesions noted Neuro: General: oriented to person and patient oriented x3 Cranial nerves: Yes CN's II-XII intact bilaterally Motor exam (neuro): 5/5 motor strength present throughout Sensory Exam: No Sensory deficit (Neuro) Extrem: Other: 1+ edema bilaterally Psych: Appearance: grossly normal Course Reevaluation(s) Reevaluation #1: no evidence of CHF, lungs are moving better air with less crackles and wheezing will dc on albuterol and atrovent Time: 15:43 MDM - URI/Sore Throat Lab Data Labs: Lab Results 11/22/21 11/22/21 Range/Units 12:47 14:26 B-Natriuretic Peptide 170 H (<100) pg/mL COVID-19 ([facility]IE) Negative (Negative) COVID-19 Clin Com See Note Imaging Data Chest x-ray: Radiologist's impression: XR/XR chest 1V IMPRESSION: Mild prominence of the pulmonary vasculature and cardiac silhouette appears similar to the previous study and is likely baseline for this patient. No definitive new abnormality. ? Discharge Plan Discharge Clinical Impression: Chronic obstructive airway disease Patient Disposition: Home, Self-Care Instructions: COPD (Chronic Obstructive Pulmonary Disease) (ED) Prescriptions: New albuterol sulfate 90 mcg/actuation HFA aerosol inhaler 1 inh inhalation QID PRN (Reason: shortness of breath or wheezing) Qty: 8.5 0RF Atrovent HFA 17 mcg/actuation HFA aerosol inhaler 2 puff inhalation QID Qty: 12.9 0RF No Action atorvastatin 40 mg tablet 1 tab PO DAILY carvedilol 12.5 mg tablet 1 tab PO BID amiodarone 200 mg tablet 1 tab PO DAILY clopidogrel 75 mg tablet 1 tab PO DAILY simvastatin 80 mg tablet 1 tab PO BEDTIME spironolactone 25 mg tablet 0.5 tab PO DAILY sertraline 50 mg tablet 1 tab PO DAILY Entresto 24-26 mg tablet 1 tab PO BID nicotine 7 mg/24 hr Patch 24 Hour 7 mg transdermal DAILY Qty: 14 0RF prednisone 5 mg tablet See Taper PO BID Qty: 36 0RF Taper: Prednisone 15 mg Q12H for 3 Days and 0 Hour 10 mg Q12H for 3 Days and 0 Hour 5 mg Q12H for 3 Days and 0 Hour furosemide 40 mg tablet 1 tab PO BID@0900,1700 Qty: 60 0RF cephalexin 500 mg capsule 500 mg PO QID Qty: 28 0RF doxycycline hyclate 100 mg capsule 100 mg PO BID 7 Days Qty: 14 0RF Referrals: Sue Danielson MD [Primary Care Provider] - 1 week
[2021-11-22 13:26] LABS: COVID-19 Test Negative (Negative)
[2021-11-22] MEDS: Albuterol/Iprat 2.5/0.5MG 3 ML AMPUL.NEB INHALE (13:51)
[2021-11-22 13:54] VITALS: PULSE 58; RESP 20; O2SAT 98
[2021-11-22 14:56] LABS: B Type Natriuretic Peptide 170 pg/mL (<100)
== END 2021-11-22 16:08 | disposition home or self-care (01) ==
PROVIDERS: Emergency Provider Emergency Medicine; PCP Internal Medicine
DX: J44.9 Chronic obstructive pulmonary disease, unspecified (principal); Z20.822 Contact with and (suspected) exposure to COVID-19; R06.02 Shortness of breath; I11.0 Hypertensive heart disease with heart failure; I50.9 Heart failure, unspecified; E78.5 Hyperlipidemia, unspecified; F12.90 Cannabis use, unspecified, uncomplicated; Z79.02 Long term (current) use of antithrombotics/antiplatelets; Z87.891 Personal history of nicotine dependence
CPT/HCPCS: 36415; 71045; 83880; 87635; 94640; 99283; 99284

== ENCOUNTER 2022-12-14 16:05 | Outpatient (REF) | payer MEDICARE, SELFPAY ==
--- NOTE | ~2022-12-14 | XR_ITS ---
EXAMINATION: XR SHOULDER, LEFT CLINICAL INFORMATION: Trauma, pain. COMPARISON: None available. TECHNIQUE: AP external rotation, Grashey, scapular Y, and axillary views of the left shoulder. FINDINGS: There is a mild medial humeral head osteophyte. There is no visible acute fracture, dislocation or subluxation. Glenohumeral and acromioclavicular alignment is anatomic with normal joint space. No abnormal soft tissue calcifications. XR/XR shoulder LT min 2V IMPRESSION: Small medial humeral head osteophyte. Otherwise no visible acute fracture, dislocation or subluxation seen.
== END 2022-12-14 16:06 | disposition home or self-care (01) ==
LOC: HO.XRAY 16:05
PROVIDERS: Visit Provider Nurse Practitioner Family
DX: M25.512 Pain in left shoulder (principal)
CPT/HCPCS: 73030

== ENCOUNTER 2023-08-13 14:34 | Outpatient (REF) | payer MEDICARE, SELFPAY ==
--- NOTE | ~2023-08-13 | XR_ITS ---
EXAMINATION: XR CHEST CLINICAL INFORMATION: Cough COMPARISON: Previous chest x-ray most recent November 2021 TECHNIQUE: 2 views of the chest were obtained. FINDINGS: The cardiac silhouette is enlarged but stable. Left subclavian pacemaker AICD appears unchanged. Mediastinal clips and median sternotomy wires. There may be pulmonary venous redistribution. The lungs are otherwise clear. No pleural effusion or pneumothorax. Degenerative changes of the spine. XR/XR chest 2V IMPRESSION: Enlarged cardiac silhouette and question pulmonary venous redistribution.
== END 2023-08-13 14:35 | disposition home or self-care (01) ==
LOC: HO.XRAY 14:34
PROVIDERS: Visit Provider Physician Assistant
DX: R05.1 Acute cough (principal)
CPT/HCPCS: 71046

== ENCOUNTER 2023-12-16 15:36 | Emergency (ER) | payer MEDICARE, SELFPAY ==
--- NOTE | ~2023-12-16 | XR_ITS ---
EXAMINATION: XR HIP, LEFT CLINICAL INFORMATION: Left hip pain for 3 weeks. COMPARISON: None available. TECHNIQUE: Frontal view of pelvis. Two views of the left hip. FINDINGS: No fracture. No focal bone lesion. Hip joints are normal. Normal sacroiliac joints. Moderate subchondral osteosclerosis and cystic changes of the symphysis pubis bilateral. Multilevel degenerative spondylosis of lower lumbar spine. Vascular calcifications of the iliac and femoral arteries. XR/XR hip LT w PEL1V IMPRESSION: No acute abnormality of the pelvis or left hip.
[2023-12-16 16:03] VITALS: BP 116/55; PULSE 61; RESP 16; TEMP 36.8; O2SAT 93; BMI 42.8
--- NOTE | 2023-12-16 16:03 | ED_ITS ---
HPI - General Adult General Chief complaint: Extremity Injury, Lower Stated complaint: left hip pain Time Seen by Provider: 12/16/23 18:47 Source: patient Mode of arrival: ambulatory Limitations: no limitations History of Present Illness ED Provider: SERA ARELLANO narrative: 68 yo male with PMH of gout, borderline DM, CAD s/p CABG on plavix, HLD, ICD in place here with 2 weeks of traumatic L hip pain worsening he did not fall but he was lifting and old man and since then he has worsening L hip pain no rash, swelling no lumps, no fevers. Has not seen orthopedics for this MD complaint: L hip pain Onset (ago): week(s) (2) Location: left and lower extremity Radiation: non-radiation Severity: moderate Quality: aching Pain Consistency: constant Relieving factors: rest Exacerbating factors: movement Associated symptoms: denies other symptoms Treatments prior to arrival: none Related Data Home Medications ?Medication ?Instructions ?Recorded ?Confirmed amiodarone 200 mg tablet 1 tab PO DAILY 04/11/20 04/11/20 atorvastatin 40 mg tablet 1 tab PO DAILY 04/11/20 04/11/20 carvedilol 12.5 mg tablet 1 tab PO BID 04/11/20 04/11/20 clopidogrel 75 mg tablet 1 tab PO DAILY 04/11/20 04/11/20 sacubitril 24 mg-valsartan 26 mg 1 tab PO BID 04/11/20 04/11/20 tablet (Entresto) sertraline 50 mg tablet 1 tab PO DAILY 04/11/20 04/11/20 simvastatin 80 mg tablet 1 tab PO BEDTIME 04/11/20 04/11/20 spironolactone 25 mg tablet 0.5 tab PO DAILY 04/11/20 04/11/20 Previous Rx's ?Medication ?Instructions ?Recorded furosemide 40 mg tablet 1 tab PO BID@0900,1700 #60 tabs 04/13/20 nicotine 7 mg/24 hr daily 7 mg transdermal DAILY #14 ea 04/13/20 transdermal patch prednisone 5 mg tablet See Taper PO BID #36 tabs 04/13/20 cephalexin 500 mg capsule 500 mg PO QID #28 caps 01/06/21 doxycycline hyclate 100 mg capsule 100 mg PO BID 7 days #14 caps 01/06/21 albuterol sulfate 90 mcg/actuation 1 inh inhalation QID PRN shortness 11/22/21 aerosol inhaler of breath or wheezing #8.5 grams ipratropium bromide 17 2 puff inhalation QID #12.9 grams 11/22/21 mcg/actuation HFA aerosol inhaler (Atrovent HFA) oxycodone 5 mg tablet 5 mg PO Q8H PRN pain #12 tabs 12/16/23 Allergies Allergy/AdvReac Type Severity Reaction Status Date / Time No Known Allergies Allergy Verified 12/16/23 16:05 Review of Systems Review of Systems: Constitutional : No Fever, No Chills ENT/Mouth : No Ear Pain, No Hoarseness, No sore throat Eyes: No Eye Pain, No Swelling, No Redness, No Foreign Body Cardiovascular : No Chest Pain, No SOB Respiratory : No Cough, No Dyspnea Gastrointestinal : No Nausea, No Vomiting, No Diarrhea, No abdominal Pain Genitourinary : No Dysuria, No Hematuria Musculoskeletal : positive joint pain, No Myalgias, No Joint Swelling Skin : No Skin lacerations, No rash Neuro : No Weakness, No Numbness, No Loss of Consciousness, No Dizziness, No Headache Psych : No Anxiety/Panic, No Depression All other systems reviewed and are negative PMFSH Past Medical History Attestation statement: The following information was validated with the patient. Source: old records reviewed Medical History Coronary artery disease Head injury Alcohol abuse Syncope High cholesterol HTN (hypertension) Borderline diabetes mellitus CVA (cerebral vascular accident) CHF (congestive heart failure) Surgical History Status post coronary artery bypass graft Stented coronary artery H/O heart bypass surgery Social History Social History Household Members: Children Housing: House Do you presently have visiting nurse or other home services: No Alcohol intake: current Alcohol intake frequency: 3 or more drinks per day Years Smoked: 50 Substance Use Type: Marijuana Advance Directives: Yes Advance Directives on File: Yes Advance Directives Date on File: 11/22/21 service: No Current occupational status: disabled Physical Exam ED Vital Signs: Vital Signs - 24 hr 12/16/23 16:03 Temperature 98.2 F Pulse Rate 61 Respiratory Rate 16 Blood Pressure 116/55 L Pulse Oximetry 93 Oxygen Delivery Method Room Air BMI result Body Mass Index 42.8 Appearance: Alert. Oriented X3. No acute distress. Eyes: Pupils equal, round and reactive to light. ENT: Pharynx normal. Neck: Normal inspection. Neck supple. CVS: Normal heart rate and rhythm. Pulses normal. Respiratory: No respiratory distress. Breath sounds normal. Abdomen: Soft and nontender. Skin: Skin warm and dry. Normal skin color. Normal skin turgor. no rash in L groin : no scrotal swelling or mass, no ttp, no hernia noted Extremities: trace pitting ankle edema, pain with ROM testing of L hip Neuro: Oriented X 3. No motor deficit. No sensory deficit. Course Course Course Narrative: This is an RME: Additional HPI, ROS, PE not included below will be deferred to primary provider. RME assessment and note performed by: Eloisa Benitez PA-C This is a [id number], with a hx of etoh abuse, DM, CHF, CAD, CVA, HTN, who presents to the ER with complaints of left hip pain x 2 weeks. Reports heavy lifting several weeks ago unsure if this caused his pain to worsen. Taking tylenol without relief. Plan: Xray left hip Medical Decision Making Medical Decision Making MDM Narrative: 68 yo male with PMH of gout, borderline DM, CAD s/p CABG on plavix, HLD, ICD in place here with c/o L hip pain he has no signs of infection, hernia or issue. He has pain with ROM testing could be acetabular injury. He has distal pulses intact. At this time will start on oral pain medications and refer to orthopedics - he is walking on it and did not fall doubt fracture but xrays ordered. Differential Diagnosis Differential Diagnoses: The differential diagnosis associated with the presentation includes internal injury of L hip Independent Interpretation I performed an independent interpretation of an: Plain X-Ray (no fracture) Radiology Impression Discussion of test interpretation with radiology: I have reviewed the radiologist's reading. External Record Review External record reviewed: Outpatient record Prescription Management I considered prescription management with: Pain Medication Discharge Plan Discharge Clinical Impression: Acute pain of left hip Patient Disposition: Home, Self-Care Instructions: Hip Pain (ED) Additional Instructions: return for worsening pain, numbness, weakness, fevers, swelling, rash call orthopedics tomorrow for follow up FINDINGS: No fracture. No focal bone lesion. Hip joints are normal. Normal sacroiliac joints. Moderate subchondral osteosclerosis and cystic changes of the symphysis pubis bilateral. Multilevel degenerative spondylosis of lower lumbar spine. Vascular calcifications of the iliac and femoral arteries. XR/XR hip LT w PEL1V IMPRESSION: No acute abnormality of the pelvis or left hip. Prescriptions: New oxycodone 5 mg tablet 5 mg PO Q8H PRN (Reason: pain) Qty: 12 0RF Rx Instructions: Partial Fill upon patient request. No Action atorvastatin 40 mg tablet 1 tab PO DAILY carvedilol 12.5 mg tablet 1 tab PO BID amiodarone 200 mg tablet 1 tab PO DAILY clopidogrel 75 mg tablet 1 tab PO DAILY simvastatin 80 mg tablet 1 tab PO BEDTIME spironolactone 25 mg tablet 0.5 tab PO DAILY sertraline 50 mg tablet 1 tab PO DAILY Entresto 24-26 mg tablet 1 tab PO BID nicotine 7 mg/24 hr Patch 24 Hour 7 mg transdermal DAILY Qty: 14 0RF prednisone 5 mg tablet See Taper PO BID Qty: 36 0RF Taper: Prednisone 15 mg Q12H for 3 Days and 0 Hour 10 mg Q12H for 3 Days and 0 Hour 5 mg Q12H for 3 Days and 0 Hour furosemide 40 mg tablet 1 tab PO BID@0900,1700 Qty: 60 0RF cephalexin 500 mg capsule 500 mg PO QID Qty: 28 0RF doxycycline hyclate 100 mg capsule 100 mg PO BID 7 Days Qty: 14 0RF albuterol sulfate 90 mcg/actuation HFA aerosol inhaler 1 inh inhalation QID PRN (Reason: shortness of breath or wheezing) Qty: 8.5 0RF Atrovent HFA 17 mcg/actuation HFA aerosol inhaler 2 puff inhalation QID Qty: 12.9 0RF Referrals: Lety Nicholas PA-C [Physician Senior Operations Manager] - (call for any provider in orthopedics office) Print Language: Ukrainian
[2023-12-16 19:29] VITALS: BP 129/65; PULSE 56; RESP 16; TEMP 36.3; O2SAT 96
[2023-12-16 19:33] VITALS: BP 129/65; PULSE 56; RESP 16; TEMP 36.3; O2SAT 96
== END 2023-12-16 19:33 | disposition home or self-care (01) ==
PROVIDERS: Emergency Provider Emergency Medicine; PCP Family Medicine
DX: M25.552 Pain in left hip (principal); I25.10 Atherosclerotic heart disease of native coronary artery without angina pectoris; I10 Essential (primary) hypertension; Z79.899 Other long term (current) drug therapy; Z79.01 Long term (current) use of anticoagulants
CPT/HCPCS: 73502; 99283

== ENCOUNTER 2024-01-03 09:18 | Outpatient (AMB) | payer MEDICARE, SELFPAY ==
--- NOTE | 2024-01-03 09:36 | MHC.OFFVIS ---
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 The man had taken multiple falls and he injured himself while he was picking hip up off the floor. 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 The man had taken multiple falls and he injured himself while he was picking hip up off the floor. Sincei then he has had increased pain that is limiting his AODL [facility] Medical History (Updated 01/07/24 @ 13:59 by Aries Torres MD) Coronary artery disease Head injury Alcohol abuse Syncope High cholesterol HTN (hypertension) Borderline diabetes mellitus CVA (cerebral vascular accident) CHF (congestive heart failure) Surgical History Status post coronary artery bypass graft Stented coronary artery H/O heart bypass surgery Social History Household Members: Children Housing: House Do you presently have visiting nurse or other home services: No Alcohol intake: current Alcohol intake frequency: 3 or more drinks per day Years Smoked: 50 Substance Use Type: Marijuana Advance Directives Date on File: 11/22/21 service: No Current occupational status: disabled Physical Exam Vital Signs: BMI result Body Mass Index 34.0 Extrem Other: Positive gait antalgia and positive impingement test left hip Results Reviewed Results Reviewed: [id number] left hip arthritis Assessment & Plan Assessment & Plan (1) Osteoarthritis of left hip: Code(s): M16.12 - Unilateral primary osteoarthritis, left hip Category: Medical Plan: This is a 68-year-old gentleman with left hip osteoarthritis. I recommend injection with pain management. In addition we discussed treatment options including surgery and nonsurgical management. I recommend nonsurgical management at this time. Medications: Discontinued nicotine Discontinued Reason: Patient no longer taking 7 mg transdermal DAILY 14 ea 0RF prednisone Discontinued Reason: Patient no longer taking See Taper PO BID 36 tabs 0RF cephalexin Discontinued Reason: Patient no longer taking 500 mg PO QID 28 caps 0RF oxycodone Partial Fill upon patient request. Discontinued Reason: Patient no longer taking 5 mg PO Q8H PRN 12 tabs 0RF pain Coding Level of Care Code New Pt Level 4 (85363) Diagnoses Osteoarthritis of left hip M16.12
[2024-01-03 09:37] VITALS: BMI 34.0
== END 2024-01-03 10:04 | disposition home or self-care (01) ==
PROVIDERS: PCP Family Medicine; Visit Provider Orthopaedic Surgery
DX: M16.12 Unilateral primary osteoarthritis, left hip (principal)
CPT/HCPCS: 99204

== ENCOUNTER → 2024-01-03 09:18 | Outpatient (BNVA) | payer MEDICARE, SELFPAY | PROVIDERS: PCP Family Medicine; Visit Provider Orthopaedic Surgery | DX: M16.12 Unilateral primary osteoarthritis, left hip (principal) | CPT/HCPCS: 99202 ==

== ENCOUNTER 2024-01-21 10:30 | Outpatient (AMB) | payer MEDICARE, SELFPAY ==
[2024-01-21 10:47] VITALS: BP 103/51; PULSE 61; O2SAT 94; BMI 42.8
--- NOTE | 2024-01-21 10:47 | A.OFFVIS_ITS ---
Vital Signs 01/21/24 10:47 Height 5 ft 9 in Weight 290 lb BMI 42.8 BP 103/51 L Blood Pressure Location Rt brachial Position Sitting Pulse 61 Pulse Source Pulse Oximeter Pulse Oximetry (%) 94 Oxygen Delivery Method Room Air Intake Visit Reasons: Unilateral Primary Osteoarthritis, Left Hip Allergies No Known Allergies Allergy (Verified 01/21/24 10:50) Medication List - Last Reconciled 01/21/24 by Soheila Diaz albuterol sulfate 90 mcg/actuation 1 inh inhalation QID PRN amiodarone 1 tab PO DAILY atorvastatin 1 tab PO DAILY carvedilol 1 tab PO BID clopidogrel 1 tab PO DAILY dapagliflozin propanediol (Farxiga) 10 mg PO DAILY doxycycline hyclate 100 mg PO BID 7 days escitalopram oxalate 10 mg PO DAILY hydroxyzine HCl 25 mg PO TID ipratropium bromide 17 mcg/actuation (Atrovent HFA) 2 puffs inhalation QID sacubitril-valsartan 24-26 mg (Entresto) 1 tab PO BID simvastatin 1 tab PO BEDTIME spironolactone 0.5 tabs PO DAILY tamsulosin 0.4 mg PO DAILY torsemide mg PO HPI Comments Details: Dakota is a very pleasant 68-year-old male who presents the office today for evaluation management of his left of pain Patient was referred here by Orthopedics for consideration left hip steroid injection Complaining today of 6/10 left hip pain for last 11 weeks. Reports pain increased to 10/10 with any movement Started after he helped his friend off the floor after friend fell Recent hip/pelvis X-ray was reviewed, results as per below Endorses pain left buttocks, left hip most significantly left groin Worse with ith walking, standing, sitting. He has been using a walker since the injury. Prior to this use able to ambulate without assistance. Currently taking Tylenol with no improvement. He is unable to take nonsteroidal anti-inflammatory medications secondary to Plavix use Unable to tolerate physical therapy secondary to the pain Pain radiates into the thigh, denies radiation down to the foot Denies red flag symptoms including new loss of bowel, bladder or saddle anesthesia Patient requesting MRI Endorses current use anticoagulants, Plavix Denies implantable devices, pacemaker or defibrillator [facility] Medical History (Updated 01/21/24 @ 11:09 by Janki Yanes APRN, VOIP NETWORK ENGINEER) Coronary artery disease Head injury Alcohol abuse Syncope High cholesterol HTN (hypertension) Borderline diabetes mellitus CVA (cerebral vascular accident) CHF (congestive heart failure) Surgical History Status post coronary artery bypass graft Stented coronary artery H/O heart bypass surgery Social History Household Members: Children Housing: House Do you presently have visiting nurse or other home services: No Alcohol intake: current Alcohol intake frequency: 3 or more drinks per day Years Smoked: 50 Substance Use Type: Marijuana Advance Directives Date on File: 11/22/21 service: No Current occupational status: disabled Review of Systems Const All systems reviewed & are unremarkable except as noted in HPI and below Physical Exam Vital Signs: Last Vital Signs Pulse 61 01/21/24 10:47 BP 103/51 L 01/21/24 10:47 Pulse Ox 94 01/21/24 10:47 Oxygen Delivery Method Room Air 01/21/24 10:47 BMI result Body Mass Index 42.8 General: awake, alert, oriented. Answers questions appropriately. Fully engaged in examination. Skin: warm, dry, intact HEENT: Normocephalic. Hearing intact. Cardiac: External chest normal in appearance. Respiratory: No cough, audible wheezing or stridor. Abdomen: without gross distension. No visible hernia MS: No obvious swelling or deformities. Able to transition from sit to stand using his walker Tenderness over left PSIS Unable to tolerate thigh thrust work Gaenslen test secondary to pain Minimal pain increase with internal external rotation of the left hip Significant pain increase with transitioning from sit to stand and stand to sit positions Neurological: Oriented to person, place, time and situation. Thought process intact. Ambulates with walker with antalgic gait Psychiatric: Appropriate mood and affect. Good judgment and insight. Results Reviewed Results Reviewed: 12/16/23: XR/XR hip LT w PEL1V EXAMINATION: XR HIP, LEFT CLINICAL INFORMATION: Left hip pain for 3 weeks. COMPARISON: None available. TECHNIQUE: Frontal view of pelvis. Two views of the left hip. FINDINGS: No fracture. No focal bone lesion. Hip joints are normal. Normal sacroiliac joints. Moderate subchondral osteosclerosis and cystic changes of the symphysis pubis bilateral. Multilevel degenerative spondylosis of lower lumbar spine. Vascular calcifications of the iliac and femoral arteries. IMPRESSION: No acute abnormality of the pelvis or left hip. Assessment & Plan Assessment & Plan (1) Left hip pain: Code(s): M25.552 - Pain in left hip Category: Medical Plan X-ray reviewed, results as per above Continue with Tylenol as needed. Patient unable to take nonsteroidal anti- inflammatory medications secondary to current use of Plavix Unable to tolerate physical therapy due to pain MRI of left hip order for further evaluation. Patient requesting open MRI, order will be sent to [facility] All questions and concerns were answered, patient agrees with the plan. Follow up after MRI, sooner if needed Orders: Orders MR hip LT wo con Today M25.552 - Pain in left hip Coding Level of Care Code New Pt Level 4 (65591) Complex EM visit Add On G2211 Diagnoses Left hip pain M25.552
== END 2024-01-21 11:09 | disposition home or self-care (01) ==
PROVIDERS: PCP Family Medicine; Referring Provider Orthopaedic Surgery; Visit Provider Registered Nurse Emergency
DX: M25.552 Pain in left hip (principal)
CPT/HCPCS: 99204; G2211

== ENCOUNTER → 2024-01-21 10:30 | Outpatient (BNVA) | payer MEDICARE, SELFPAY | PROVIDERS: PCP Family Medicine; Referring Provider Orthopaedic Surgery; Visit Provider Registered Nurse Emergency | DX: M25.552 Pain in left hip (principal) | CPT/HCPCS: 99202 ==

== ENCOUNTER 2024-02-27 14:57 | Outpatient (AMB) | payer MEDICARE, SELFPAY ==
[2024-02-27 15:02] VITALS: BP 103/52; PULSE 73; O2SAT 94
--- NOTE | 2024-02-27 15:02 | A.OFFVIS_ITS ---
Vital Signs 02/27/24 15:02 Weight 285 lb BP 103/52 L Blood Pressure Location Rt brachial Position Sitting Pulse 73 Pulse Source Pulse Oximeter Pulse Oximetry (%) 94 Oxygen Delivery Method Room Air Intake Visit Reasons: MRI on hold discuss options Allergies No Known Allergies Allergy (Verified 02/27/24 15:03) Medication List - Last Reconciled 02/27/24 by Soheila Diaz albuterol sulfate 90 mcg/actuation 1 inh inhalation QID PRN amiodarone 1 tab PO DAILY atorvastatin 1 tab PO DAILY carvedilol 1 tab PO BID clopidogrel 1 tab PO DAILY dapagliflozin propanediol (Farxiga) 10 mg PO DAILY doxycycline hyclate 100 mg PO BID 7 days escitalopram oxalate 10 mg PO DAILY hydroxyzine HCl 25 mg PO TID ipratropium bromide 17 mcg/actuation (Atrovent HFA) 2 puffs inhalation QID sacubitril-valsartan 24-26 mg (Entresto) 1 tab PO BID simvastatin 1 tab PO BEDTIME spironolactone 0.5 tabs PO DAILY tamsulosin 0.4 mg PO DAILY torsemide mg PO HPI Comments Details: Dakota presented back to the office today for follow-up left hip pain Frustrated that MRI has not been performed. Per MRI department patient's culinary intern advised them that his defibrillator was not MRI compatible therefore he will not be able to undergo this exam. Continues with left hip pain, rated today as 10/10 Worse with walking, sitting, standing Using a crutch for ambulation Prescribed gabapentin 300 mg daily from his primary care doctor. He has been taking this 3 times daily with some improvement of his pain but due to his dose increase he will run out before he is due for refill. Unable to take nonsteroidal anti-inflammatory medications due to current use of anticoagulants Last visit he was hesitant to undergo steroid injection of the left hip. Now he is willing to proceed as the pain persists Prior: Dakota is a very pleasant 68-year-old male who presents the office today for evaluation management of his left of pain Patient was referred here by Orthopedics for consideration left hip steroid injection Complaining today of 6/10 left hip pain for last 11 weeks. Reports pain increased to 10/10 with any movement Started after he helped his friend off the floor after friend fell Recent hip/pelvis X-ray was reviewed, results as per below Endorses pain left buttocks, left hip most significantly left groin Worse with ith walking, standing, sitting. He has been using a walker since the injury. Prior to this use able to ambulate without assistance. Currently taking Tylenol with no improvement. He is unable to take nonsteroidal anti-inflammatory medications secondary to Plavix use Unable to tolerate physical therapy secondary to the pain Pain radiates into the thigh, denies radiation down to the foot Denies red flag symptoms including new loss of bowel, bladder or saddle a nesthesia Patient requesting MRI Endorses current use anticoagulants, Plavix Denies implantable devices, pacemaker or defibrillator REPLACED BY [facility] Medical History (Updated 01/21/24 @ 11:09 by Janki Yanes, SONY, TOP TILE DECORATOR) Coronary artery disease Head injury Alcohol abuse Syncope High cholesterol HTN (hypertension) Borderline diabetes mellitus CVA (cerebral vascular accident) CHF (congestive heart failure) Surgical History Status post coronary artery bypass graft Stented coronary artery H/O heart bypass surgery Social History Household Members: Children Housing: House Do you presently have visiting nurse or other home services: No Alcohol intake: current Alcohol intake frequency: 3 or more drinks per day Years Smoked: 50 Substance Use Type: Marijuana Advance Directives Date on File: 11/22/21 service: No Current occupational status: disabled Review of Systems Const All systems reviewed & are unremarkable except as noted in HPI and below Physical Exam Vital Signs: Last Vital Signs Pulse 73 02/27/24 15:02 BP 103/52 L 02/27/24 15:02 Pulse Ox 94 02/27/24 15:02 Oxygen Delivery Method Room Air 02/27/24 15:02 General: awake, alert, oriented. Answers questions appropriately. Fully engaged in examination. Skin: warm, dry, intact HEENT: Normocephalic. Hearing intact. Cardiac: External chest normal in appearance. Respiratory: No cough, audible wheezing or stridor. Abdomen: without gross distension. No visible hernia MS: No obvious swelling or deformities. Able to transition from sit to stand unassisted Pain increase with internal external rotation of the left hip Neurological: Oriented to person, place, time and situation. Thought process intact. Ambulates with crutch with antalgic gait Psychiatric: Appropriate mood and affect. Good judgment and insight. Results Reviewed Results Reviewed: 12/16/23: XR/XR hip LT w PEL1V EXAMINATION: XR HIP, LEFT CLINICAL INFORMATION: Left hip pain for 3 weeks. COMPARISON: None available. TECHNIQUE: Frontal view of pelvis. Two views of the left hip. FINDINGS: No fracture. No focal bone lesion. Hip joints are normal. Normal sacroiliac joints. Moderate subchondral osteosclerosis and cystic changes of the symphysis pubis bilateral. Multilevel degenerative spondylosis of lower lumbar spine. Vascular calcifications of the iliac and femoral arteries. IMPRESSION: No acute abnormality of the pelvis or left hip. Assessment & Plan Assessment & Plan (1) Left hip pain: Code(s): M25.552 - Pain in left hip Category: Medical Plan MRI order discontinued. No order for CT left hip ordered for evaluation. Will increase patient's gabapentin to 400 mg p.o. 3 times daily as needed. Patient advised on cautions for use Patient has exhausted conservative therapy. Unable to tolerate physical therapy due to pain. Unable to take nonsteroidal anti-inflammatory medications due to current use of anticoagulants. No help with Tylenol, prescription medications or rest Will schedule for fluoroscopy guided left intra-articular hip injection with local anesthetic. Patient will need to hold Plavix for the injection. All questions and concerns were answered, patient agrees with the plan. Follow up after injection, sooner if needed Orders: Orders CT hip LT wo IV con Today M25.552 - Pain in left hip Medications: New gabapentin 400 mg PO TID 90 caps 3RF Coding Level of Care Code Est Pt Level 4 (29345) Complex EM visit Add On G2211 Diagnoses Left hip pain M25.552
== END 2024-02-27 15:30 | disposition home or self-care (01) ==
PROVIDERS: PCP Family Medicine; Visit Provider Registered Nurse Emergency
DX: M25.552 Pain in left hip (principal)
CPT/HCPCS: 99214; G2211

== ENCOUNTER → 2024-02-27 14:57 | Outpatient (BNVA) | payer MEDICARE, SELFPAY | PROVIDERS: PCP Family Medicine; Visit Provider Registered Nurse Emergency | DX: M25.552 Pain in left hip (principal) | CPT/HCPCS: 99212 ==

== ENCOUNTER 2024-03-09 07:14 | Outpatient (REF) | payer MEDICARE, SELFPAY ==
--- NOTE | ~2024-03-09 | CT_ITS ---
EXAMINATION: CT HIP WITHOUT CONTRAST, LEFT CLINICAL INFORMATION: Left hip pain. COMPARISON: Left hip and pelvic radiographs dated 12/16/2023. TECHNIQUE: Multidetector volumetric imaging was obtained through the left hip without contrast material. Multiplanar reformatted images were submitted in coronal and sagittal planes. This CT examination was performed using dose optimization techniques as appropriate, variously including the following: *Automated exposure control *Adjustment of mA and/or kV according to patient size (this includes techniques or standardized protocols for targeted exams where dose is matched to indication/reason for exam; i.e. extremities or head) *Use of iterative reconstruction technique DLP: 704 mGy-cm FINDINGS: No acute fracture or dislocation. Mild left hip joint space narrowing with small marginal osteophytes. No concerning lytic or blastic osseous lesion. No evidence of femoral head avascular necrosis. Mild left sacroiliac joint osteoarthritis. No large left hip joint effusion. Lateral subcutaneous edema and skin thickening consistent with a soft tissue contusion. No organized fluid collection or hematoma formation. The visualized muscles and tendons are grossly intact; however, evaluation limited on CT examination. Atherosclerotic calcifications. Sigmoid diverticulosis without evidence of acute diverticulitis. The visualized intrapelvic structures are otherwise unremarkable. CT/CT hip LT wo IV con IMPRESSION: 1. No acute fracture or dislocation. 2. Mild left hip and left sacroiliac joint osteoarthritis. 3. Lateral soft tissue contusion without organized fluid collection or hematoma formation. Electronically signed by: Laci Tenorio MD 03/14/2024 01:45 PM EDT
== END 2024-03-09 07:15 | disposition home or self-care (01) ==
LOC: HO.CT 07:14
PROVIDERS: PCP Family Medicine; Visit Provider Registered Nurse Emergency
DX: M25.552 Pain in left hip (principal)
CPT/HCPCS: 73700

== ENCOUNTER 2024-03-14 12:38 | Emergency (ER) | payer MEDICARE, SELFPAY ==
--- NOTE | ~2024-03-14 | XR_ITS ---
EXAMINATION: XR CHEST CLINICAL INFORMATION: Shortness of breath COMPARISON: Chest radiograph 08/13/2023 TECHNIQUE: 2 views of the chest were obtained. FINDINGS: Again noted left chest wall pacemaker/AICD with intact leads in unchanged position. Median sternotomy wires with fractures of the superior most wire. Mediastinal surgical clips. Overlying EKG wires. The lungs are adequately expanded. Again noted mild diffuse interstitial prominence and pulmonary venous redistribution. No pleural effusions or pneumothorax. The cardiac silhouette is enlarged and unchanged. Degenerative changes of the thoracic spine. XR/XR chest 2V IMPRESSION: Stable enlarged cardiac silhouette. Similar mild diffuse interstitial prominence and pulmonary venous distribution. Electronically signed by: Brennen Joe MD 03/14/2024 02:21 PM EDT
[2024-03-14 13:16] VITALS: BP 99/47; PULSE 40; RESP 20; TEMP 36.9; O2SAT 96; BMI 49.6
--- NOTE | 2024-03-14 13:16 | ED_ITS ---
HPI - General Adult General Chief complaint: General Medical Stated complaint: groin pain Time Seen by Provider: 03/14/24 16:15 Source: patient Limitations: no limitations History of Present Illness ED Provider: Chantelle Gamboa PA-C HPI narrative: 68-year-old male with a history known arthritis of the left hip, gout, borderline DM, CAD s/p CABG on plavix, HLD, ICD prior CVA without residual deficits, gout, morbid obesity presents with ongoing left hip pain. Patient states 4 months ago he was helping an elderly gentleman who was actively falling. The patient caught the man mid fall, he was essentially weight. He strained his left groin at that time. Associated swelling within the groin and upper thigh. No overlying skin discoloration. Patient has followed up with Ortho, he had a recent CT scan, he has yet to obtain results. He has an appointment pending this week to receive the results. Patient is also attending pain management. Related Data Home Medications ?Medication ?Instructions ?Recorded ?Confirmed amiodarone 200 mg tablet 1 tab PO DAILY 04/11/20 02/27/24 atorvastatin 40 mg tablet 1 tab PO DAILY 04/11/20 02/27/24 carvedilol 12.5 mg tablet 1 tab PO BID 04/11/20 02/27/24 clopidogrel 75 mg tablet 1 tab PO DAILY 04/11/20 02/27/24 sacubitril 24 mg-valsartan 26 mg 1 tab PO BID 04/11/20 02/27/24 tablet (Entresto) simvastatin 80 mg tablet 1 tab PO BEDTIME 04/11/20 02/27/24 spironolactone 25 mg tablet 0.5 tab PO DAILY 04/11/20 02/27/24 dapagliflozin propanediol 10 mg 10 mg PO DAILY 01/03/24 02/27/24 tablet (Farxiga) escitalopram oxalate 10 mg tablet 10 mg PO DAILY 01/03/24 02/27/24 hydroxyzine HCl 25 mg tablet 25 mg PO TID 01/03/24 02/27/24 tamsulosin 0.4 mg capsule 0.4 mg PO DAILY 01/03/24 02/27/24 torsemide 20 mg tablet mg PO 01/03/24 02/27/24 Previous Rx's ?Medication ?Instructions ?Recorded doxycycline hyclate 100 mg capsule 100 mg PO BID 7 days #14 caps 01/06/21 albuterol sulfate 90 mcg/actuation 1 inh inhalation QID PRN shortness 11/22/21 aerosol inhaler of breath or wheezing #8.5 grams ipratropium bromide 17 2 puff inhalation QID #12.9 grams 11/22/21 mcg/actuation HFA aerosol inhaler (Atrovent HFA) gabapentin 400 mg capsule 400 mg PO TID #90 caps 02/27/24 meloxicam 15 mg tablet 15 mg PO DAILY #5 tabs 03/14/24 methocarbamol 750 mg tablet 1,500 mg (2 x 750 mg) PO QID PRN 03/14/24 pain #30 tabs Allergies Allergy/AdvReac Type Severity Reaction Status Date / Time No Known Allergies Allergy Verified 03/14/24 13:22 Review of Systems 2 Review of Systems: Yes all other systems are reviewed and are negative Constitutional: Constitutional: Denies fatigue and Denies fever(s) Cardiovascular: Cardiovascular: Denies chest pain and Denies dyspnea Respiratory: Respiratory: Denies cough and Denies dyspnea Gastrointestinal: Gastrointestinal: Denies abdominal pain Musculoskeletal: Musculoskeletal: Reports arthralgias and Reports joint swelling Endocrine: Endocrine: Denies fatigue PMFSH Past Medical History Attestation statement: The following information was validated with the patient. Medical History (Updated 03/14/24 @ 17:15 by JERMAINE Reid) Coronary artery disease Head injury Alcohol abuse Syncope High cholesterol HTN (hypertension) Borderline diabetes mellitus CVA (cerebral vascular accident) CHF (congestive heart failure) Surgical History Status post coronary artery bypass graft Stented coronary artery H/O heart bypass surgery Social History Social History Household Members: Children Housing: House Do you presently have visiting nurse or other home services: No Alcohol intake: current Alcohol intake frequency: 3 or more drinks per day Alcohol type: beer Years Smoked: 50 Smoked in Last 30 Days: Yes Use of substances other than those prescribed or required for medical reasons: Yes Substance Use Type: Marijuana and Painkillers Advance Directives: Yes Advance Directives on File: Yes Advance Directives Date on File: 11/22/21 Do you have a plan to hurt others: No Plan service: No Current occupational status: disabled Physical Exam ED Vital Signs: Vital Signs - 24 hr 03/14/24 13:16 03/14/24 13:50 03/14/24 16:35 Temperature 98.5 F 97.7 F 97.1 F Pulse Rate 40 L 57 57 Respiratory Rate 20 16 17 Blood Pressure 99/47 L 99/43 L 106/49 L Pulse Oximetry 96 94 96 Oxygen Delivery Method Room Air Room Air Room Air BMI result Body Mass Index 49.6 Const Other: Alert, overall well in appearance Orientation/consciousness: patient oriented x3 Resp Other: Nonlabored respiration Cardio Other: Normal peripheral perfusion Skin Other: Warm dry no rash Neuro General: patient oriented x3, no focal motor deficits and CN's II-XI intact bilaterally Extrem Other: There is subtle, soft swelling over the upper thigh region, there was no overlying skin discoloration, no ecchymosis, no erythema, patient ambulates with an antalgic gait movement elicits pain Psych Other: Calm cooperative Course Course Course Narrative: This is a Rapid Medical Examination (RME) performed by Tarik Esquivel PA-C in triage. Full HPI, ROS, assessment and treatment plan per primary provider in the Main ED. 68 yo male gout, borderline DM, CAD s/p CABG on plavix, HLD, ICD in place here for eval of acute on chronic left hip/ groin pain x months. had XR hip on 12/16/23 which was normal and had hip CT done on 03/09/24 (not read yet). Has appointment on 03/19/24 to discuss results. reports increased pain/ swelling to b/l groin and testicles. assoc inflammation to legs and shortness of breath. admits to buying pain medication on the black market . states he cannot afford to keep buying meds of the black market. not trailing OTC pain meds. +visibly sob when exerting himself. groin area not examined in triage. Plan: labs. will reach out to [place] [facility] to have CT read. Medical Decision Making Medical Decision Making [facility] Narrative: 68-year-old male with a history known arthritis of the left hip, gout, borderline DM, CAD s/p CABG on plavix, HLD, ICD prior CVA without residual deficits, gout, morbid obesity presents with ongoing left hip pain. Patient states 4 months ago he was helping an elderly gentleman who was actively falling. The patient caught the man mid fall, he was essentially weight. He strained his left groin at that time. Associated swelling within the groin and upper thigh. No overlying skin discoloration. Patient has followed up with Ortho, he had a recent CT scan, he has yet to obtain results. He has an appointment pending this week to receive the results. Patient is also attending pain management. Problem: Age, obesity, gout, cardiac history, known arthritis History: Per patient I have considered the following differential diagnoses: Septic joint, seroma, hematoma, quadricep tear, arthritis flare, musculoskeletal strain Plan: Patient is dealing with prolonged musculoskeletal strain, he had a CT scan on March 09, the scan reveals he does indeed have a fluid collection, given no overlying skin discoloration and duration of symptoms, this is likely a seroma. He is pending follow up with the orthopedic service which is ideal. We will be sending with an anti-inflammatory and a muscle relaxant. Thought about septic joint, however the patient has range of motion, is afebrile, the joint is not red and hot. I have independently reviewed the following tests: CT hip: Left hip pain. COMPARISON: Left hip and pelvic radiographs dated 12/16/2023. TECHNIQUE: Multidetector volumetric imaging was obtained through the left hip without contrast material. Multiplanar reformatted images were submitted in coronal and sagittal planes. This CT examination was performed using dose optimization techniques as appropriate, variously including the following: *Automated exposure control *Adjustment of mA and/or kV according to patient size (this includes techniques or standardized protocols for targeted exams where dose is matched to indication/reason for exam; i.e. extremities or head) *Use of iterative reconstruction technique DLP: 704 mGy-cm FINDINGS: No acute fracture or dislocation. Mild left hip joint space narrowing with small marginal osteophytes. No concerning lytic or blastic osseous lesion. No evidence of femoral head avascular necrosis. Mild left sacroiliac joint osteoarthritis. No large left hip joint effusion. Lateral subcutaneous edema and skin thickening consistent with a soft tissue contusion. No organized fluid collection or hematoma formation. The visualized muscles and tendons are grossly intact; however, evaluation limited on CT examination. Atherosclerotic calcifications. Sigmoid diverticulosis without evidence of acute diverticulitis. The visualized intrapelvic structures are otherwise unremarkable. CT/CT hip LT wo IV con IMPRESSION: 1. No acute fracture or dislocation. 2. Mild left hip and left sacroiliac joint osteoarthritis. 3. Lateral soft tissue contusion without organized fluid collection or hematoma formation. Electronically signed by: Laci Tenorio MD 03/14/2024 01:45 PM EDT RP Workstation: [id number] Lab Data 03/14/24 14:05 03/14/24 14:05 Labs: Lab Results 03/14/24 Range/Units 14:05 WBC 6.7 (4.8-10.8) X10*3/uL RBC 3.86 L (4.60-5.80) X10*6/uL Hgb 11.6 L (14.0-18.0) g/dl Hct 34.7 L (42.0-52.0) % MCV 89.9 (80.0-98.0) fL MCH 30.1 (27.0-33.0) pg MCHC 33.4 (31.0-36.0) g/dl RDW 14.5 (11.0-16.0) % Plt Count 161 (160-400) X10*3/uL MPV 10.9 (9.4-12.4) fL Immature Gran % (Auto) 0.6 H (0.0-0.4) % Neut % (Auto) 72.8 (45-73) % Lymph % (Auto) 14.2 L (20-40) % [place] % (Auto) 9.6 (2-11) % Eos % (Auto) 2.5 (0-4) % Baso % (Auto) 0.3 (0-2) % Lymph # (Auto) 1.0 L (1.2-4.9) X10*3/uL [place] # (Auto) 0.7 (0.1-1.2) X10*3/uL Eos # (Auto) 0.2 (0.0-0.4) X10*3/uL Baso # (Auto) 0.0 (0.0-0.2) X10*3/uL Abs Immat Gran (auto) 0.04 H (0.00-0.03) X10*3/uL Absolute Neuts (auto) 4.9 (2.0-8.3) x10*3/uL Absolute Nucleated RBC 0.000 (0.0-0.012) X10*3/uL Nucleated RBC % (auto) 0.0 (0.0-0.2) /100WBC Sodium 138 (135-145) mmol/L Potassium 4.7 (3.3-5.1) mmol/L Chloride 101 (96-108) mmol/L Carbon Dioxide 24 (22-29) mmol/L Anion Gap 18 (12-20) BUN 52 H (9-16) mg/dL Creatinine 2.64 H (0.5-1.4) mg/dL Estim Creat Clear Calc 36.2 Estimated GFR 24 Random Glucose 117 H (60-115) mg/dL Calcium 9.0 (8.4-10.2) mg/dL Magnesium 2.6 (1.6-2.6) mg/dL Total Bilirubin 0.4 (0.0-1.0) mg/dL AST 19 (5-37) U/L ALT 19 (0-40) U/L Alkaline Phosphatase 80 (39-117) U/L Troponin I High Sens 10.2 (<3.5-35.0) ng/L B-Natriuretic Peptide 459 H (<100) pg/mL Total Protein 6.6 (6.5-8.0) g/dL Albumin 4.1 (3.5-5.0) g/dL Discharge Plan Discharge Clinical Impression: Osteoarthritis of left hip Patient Disposition: Home, Self-Care Instructions: Osteoarthritis (ED) Additional Instructions: The CT scan revealed that you do have arthritis, which you already knew. You also have an associated fluid collection, this could be from a partial muscle tear. Keep your pending appointment with your orthopedic surgeon for next week. Take the methocarbamol, this is a muscle relaxant, as needed for your discomfort. To note it can cause drowsiness, do not drive or operate machinery while taking the medication. Take the meloxicam as directed, this is an anti- inflammatory. Take it with food. Prescriptions: New meloxicam 15 mg tablet 15 mg PO DAILY Qty: 5 0RF methocarbamol 750 mg tablet 1,500 mg PO QID PRN (Reason: pain) Qty: 30 0RF No Action atorvastatin 40 mg tablet 1 tab PO DAILY carvedilol 12.5 mg tablet 1 tab PO BID amiodarone 200 mg tablet 1 tab PO DAILY clopidogrel 75 mg tablet 1 tab PO DAILY simvastatin 80 mg tablet 1 tab PO BEDTIME spironolactone 25 mg tablet 0.5 tab PO DAILY Entresto 24-26 mg tablet 1 tab PO BID doxycycline hyclate 100 mg capsule 100 mg PO BID 7 Days Qty: 14 0RF albuterol sulfate 90 mcg/actuation HFA aerosol inhaler 1 inh inhalation QID PRN (Reason: shortness of breath or wheezing) Qty: 8.5 0RF Atrovent HFA 17 mcg/actuation HFA aerosol inhaler 2 puff inhalation QID Qty: 12.9 0RF hydroxyzine HCl 25 mg tablet 25 mg PO TID dapagliflozin propanediol [Farxiga] 10 mg tablet 10 mg PO DAILY torsemide 20 mg tablet PO tamsulosin 0.4 mg capsule 0.4 mg PO DAILY escitalopram oxalate 10 mg tablet 10 mg PO DAILY gabapentin 400 mg capsule 400 mg PO TID Qty: 90 3RF Print Language: Eritrean
[2024-03-14 13:50] VITALS: BP 99/43; PULSE 57; RESP 16; TEMP 36.5; O2SAT 94
[2024-03-14 14:10] LABS: MANUAL DIFF FLAG NO
[2024-03-14 14:22] LABS: Basophils Percent Auto 0.3 % (0-2); Eosinophils Absolute Auto 0.2 X10*3/uL (0.0-0.4); Eosinophils Percent Auto 2.5 % (0-4); Hematocrit 34.7 % (42.0-52.0); Hemoglobin 11.6 g/dl (14.0-18.0); Imm Gran Abs Auto 0.04 X10*3/uL (0.00-0.03); Imm Gran Pct Auto 0.6 % (0.0-0.4); Lymphocytes Percent Auto 14.2 % (20-40); Mean Corpuscular HGB Conc 33.4 g/dl (31.0-36.0); Mean Corpuscular Hemoglobin 30.1 pg (27.0-33.0); Mean Corpuscular Volume 89.9 fL (80.0-98.0); Mean Platelet Volume 10.9 fL (9.4-12.4); Monocytes Absolute Auto 0.7 X10*3/uL (0.1-1.2); Monocytes Percent Auto 9.6 % (2-11); Neutrophils Absolute Auto 4.9 x10*3/uL (2.0-8.3); Neutrophils Percent Auto 72.8 % (45-73); Platelet Count 161 X10*3/uL (160-400); Red Blood Count 3.86 X10*6/uL (4.60-5.80); Red Cell Distribution Width 14.5 % (11.0-16.0); White Blood Count 6.7 X10*3/uL (4.8-10.8)
[2024-03-14 14:32] LABS: Alanine Aminotransferase 19 U/L (0-40); Albumin Level 4.1 g/dL (3.5-5.0); Alkaline Phosphatase 80 U/L (39-117); Anion Gap 18 (12-20); Aspartate Amino Transferase 19 U/L (5-37); Bilirubin Total 0.4 mg/dL (0.0-1.0); Blood Urea Nitrogen 52 mg/dL (9-16); Carbon Dioxide 24 mmol/L (22-29); Chloride 101 mmol/L (96-108); Creatinine Clr Calc Pharmacy 36.2; Estimated Glomerular Filt Rate 24; Glucose Random 117 mg/dL (60-115); Magnesium 2.6 mg/dL (1.6-2.6); Potassium 4.7 mmol/L (3.3-5.1); Sodium 138 mmol/L (135-145); Total Protein 6.6 g/dL (6.5-8.0)
[2024-03-14 14:38] LABS: B Type Natriuretic Peptide 459 pg/mL (<100)
[2024-03-14 14:39] LABS: Troponin-I High Sensitivity 10.2 ng/L (<3.5-35.0)
[2024-03-14 16:35] VITALS: BP 106/49; PULSE 57; RESP 17; TEMP 36.2; O2SAT 96
[2024-03-14 17:26] VITALS: BP 106/49; PULSE 57; RESP 17; TEMP 36.2; O2SAT 96
== END 2024-03-14 17:26 | disposition home or self-care (01) ==
PROVIDERS: Physician Assistant Medical; Emergency Provider Emergency Medicine Emergency Medical Services; PCP Family Medicine
DX: M16.12 Unilateral primary osteoarthritis, left hip (principal); R10.32 Left lower quadrant pain; R06.02 Shortness of breath
CPT/HCPCS: 36415; 71046; 80053; 83735; 83880; 84484; 85025; 99283; 99284

== ENCOUNTER 2024-03-19 06:18 | Outpatient (REF) | payer MEDICARE, SELFPAY | END 2024-03-19 06:19 | disposition home or self-care (01) | LOC: CF 06:18 | PROVIDERS: Visit Provider Internal Medicine | DX: Z13.89 Encounter for screening for other disorder (principal) ==

== ENCOUNTER 2024-08-07 12:50 | Outpatient (AMB) | payer MEDICARE, SELFPAY ==
[2024-08-07 13:10] VITALS: BP 79/48; PULSE 72; O2SAT 97
--- NOTE | 2024-08-07 13:10 | A.OFFVIS_ITS ---
Vital Signs 08/07/24 13:10 08/07/24 13:13 08/07/24 13:47 08/07/24 13:47 Height 5 ft 7 in BP 79/48 L 72/40 L 75/50 L 76/46 L Blood Pressure Location Rt brachial Rt brachial Lt brachial Rt brachial Position Sitting Sitting Sitting Sitting Pulse 72 Pulse Source Pulse Oximeter Pulse Oximetry (%) 97 Oxygen Delivery Method Room Air Comment Bp done manually Intake Visit Reasons: Unilateral Primary Osteoarthritis, Left Hip Intake Note: Pain today 1010 Film Recordist Required: No Accompanied by: Self / Same As Patient Allergies No Known Allergies Allergy (Verified 08/07/24 14:18) HPI Comments Details: Dakota presented back to the office today for follow-up left hip pain He would like to reschedule his intra-articular steroid injection. Previously he presented for the injection but was onto the ER for CHF. Today complains of dizziness and nausea. Blood pressure 72/46 manually. Denies chest pain, falls, shortness of breath, headache, blurry vision Prior: Dakota presented back to the office today for follow-up left hip pain Frustrated that MRI has not been performed. Per MRI department patient's fringing machine operator advised them that his defibrillator was not MRI compatible ther efore he will not be able to undergo this exam. Continues with left hip pain, rated today as 10/10 Worse with walking, sitting, standing Using a crutch for ambulation Prescribed gabapentin 300 mg daily from his primary care doctor. He has been taking this 3 times daily with some improvement of his pain but due to his dose increase he will run out before he is due for refill. Unable to take nonsteroidal anti-inflammatory medications due to current use of anticoagulants Last visit he was hesitant to undergo steroid injection of the left hip. Now he is willing to proceed as the pain persists Prior: Dakota is a very pleasant 68-year-old male who presents the office today for evaluation management of his left of pain Patient was referred here by Orthopedics for consideration left hip steroid injection Complaining today of 6/10 left hip pain for last 11 weeks. Reports pain increased to 10/10 with any movement Started after he helped his friend off the floor after friend fell Recent hip/pelvis X-ray was reviewed, results as per below Endorses pain left buttocks, left hip most significantly left groin Worse with ith walking, standing, sitting. He has been using a walker since the injury. Prior to this use able to ambulate without assistance. Currently taking Tylenol with no improvement. He is unable to take nonsteroidal anti-inflammatory medications secondary to Plavix use Unable to tolerate physical therapy secondary to the pain Pain radiates into the thigh, denies radiation down to the foot Denies red flag symptoms including new loss of bowel, bladder or saddle anesthes ia Patient requesting MRI Endorses current use anticoagulants, Plavix Denies implantable devices, pacemaker or defibrillator [facility] Medical History (Updated 08/07/24 @ 14:19 by Janki Yanes, [employer] SALES [employer], [employer]) Coronary artery disease Head injury Alcohol abuse Syncope High cholesterol HTN (hypertension) Borderline diabetes mellitus CVA (cerebral vascular accident) CHF (congestive heart failure) Surgical History Status post coronary artery bypass graft Stented coronary artery H/O heart bypass surgery Social History Household Members: Children Housing: House Do you presently have visiting nurse or other home services: No Alcohol intake: current Alcohol intake frequency: 3 or more drinks per day Alcohol type: beer Years Smoked: 50 Substance Use Type: Marijuana and Painkillers Advance Directives Date on File: 11/22/21 service: No Current occupational status: disabled Review of Systems Const All systems reviewed & are unremarkable except as noted in HPI and below Physical Exam Vital Signs: Last Vital Signs Pulse 72 08/07/24 13:10 BP 76/46 L 08/07/24 13:47 Pulse Ox 97 08/07/24 13:10 Oxygen Delivery Method Room Air 08/07/24 13:10 General: awake, alert, oriented. Answers questions appropriately. Fully engaged in examination. Skin: warm, dry, intact HEENT: Normocephalic. Hearing intact. Cardiac: External chest normal in appearance. Bilateral peripheral edema. Respiratory: No cough, audible wheezing or stridor. Abdomen: without gross distension. No visible hernia MS: No obvious swelling or deformities. Neurological: Oriented to person, place, time and situation. Thought process intact. Psychiatric: Appropriate mood and affect. Good judgment and insight. Results Reviewed Results Reviewed: 12/16/23: XR/XR hip LT w [id number] EXAMINATION: XR HIP, LEFT CLINICAL INFORMATION: Left hip pain for 3 weeks. COMPARISON: None available. TECHNIQUE: Frontal view of pelvis. Two views of the left hip. FINDINGS: No fracture. No focal bone lesion. Hip joints are normal. Normal sacroiliac joints. Moderate subchondral osteosclerosis and cystic changes of the symphysis pubis bilateral. Multilevel degenerative spondylosis of lower lumbar spine. Vascular calcifications of the iliac and femoral arteries. IMPRESSION: No acute abnormality of the pelvis or left hip. Assessment & Plan Assessment & Plan (1) Left hip pain: Code(s): M25.552 - Pain in left hip Category: Medical (2) Hypotension: Code(s): I95.9 - Hypotension, unspecified Category: Medical (3) Dizziness: Code(s): R42 - Dizziness and giddiness Category: Medical (4) Nausea: Code(s): R11.0 - Nausea Category: Medical Plan Patient with symptomatic hypotension. Report was called to the ER. Patient was transferred there via wheelchair. We will reschedule patient for fluoroscopy guided left intra-articular hip injection with local anesthetic once blood pressure has stabilized Patient has exhausted conservative therapy. Unable to tolerate physical therapy due to pain. Unable to take nonsteroidal anti-inflammatory medications due to current use of anticoagulants. No help with Tylenol, prescription medications or rest All questions and concerns were answered, patient agrees with the plan. Follow up after injection, sooner if needed Coding Level of Care Code Est Pt Level 3 (39273) Complex EM visit Add On G2211 Diagnoses Left hip pain M25.552 Hypotension I95.9 Dizziness R42 Nausea R11.0
[2024-08-07 13:13] VITALS: BP 72/40
[2024-08-07 13:47] VITALS: BP 75/50; BP 76/46
--- OUTSIDE RECORDS SUMMARY | 2024-08-07 15:12 | XMS_ITS | Encounter Summary ---
Author Organization [facility] Address [address] [place] [address] Care Team Providers Care Physical Ther Name Role Phone Joseph Crowell MD Primary Care Provider Unava ilable Ney Banuelos DO Primary Care Provider Marina vailable Encounter Details Date Type Department Care Team Description 07/20/2019 Release of Information Medical Records [address] [place] [id number] Abstract, Provider Social History Tobacco Use Types Packs/Day Years Used Date Smoking Tobacco: Every Day Cigarettes 1 50 Smokeless Tobacco: Never Comments:down to a few ciggs /week, on chantix past month Alcohol Use Standard Drinks/Week Comments Yes 0 (1 standard drink = 0.6 oz pure alcohol) few drinks daily per his report, avg 2 per day Sex Assigned at Date Recorded Not on file Job Start Date Occupation Industry Not on file Not on file Not on file documented as of this encounter Nursing Notes * Edith Galindo - 07/20/2019 12:23 PM EST AUTHORIZATION TO OBTAIN RECORDS FAXED TO [employer]. documented in this encounter Plan of Treatment Not on file documented as of this encounter Visit Diagnoses Not on filedocumented in this encounter Care Teams Physical Ther Relationship Specialty Start Date End Date Joseph Crowell MD PCP - General Internal Medicine 06/09/19 10/03/20 Ney Banuelos DO PCP - General Internal Medicine 10/04/20 documented as of this encounter
--- OUTSIDE RECORDS SUMMARY | 2024-08-07 15:12 | XMS_ITS | Encounter Summary ---
Author Organization [facility] Address [address] [place] [address] Care Team Providers Care Sterilizer Machine Operator Name Role Phone Joseph Crowell MD Primary Care Provider Unava ilable Ney Banuelos DO Primary Care Provider Marina vailable Encounter Details Date Type Department Care Team Description 11/19/2019 Warehouse And Receiving Supervisor Report Medical Records [address] [place] [address] Saravanan Macisa MD Social History Tobacco Use Types Packs/Day Years Used Date Smoking Tobacco: Every Day Cigarettes 1 50 Smokeless Tobacco: Never Comments:down to a few cigs/ week, on chantix past month Alcohol Use Standard Drinks/Week Comments Yes 0 (1 standard drink = 0.6 oz pure alcohol) few drinks daily per his report, avg 2 per day Sex Assigned at Date Recorded Not on file Job Start Date Occupation Industry Not on file Not on file Not on file documented as of this encounter Plan of Treatment Not on file documented as of this encounter Visit Diagnoses Not on filedocumented in this encounter Care Teams Sterilizer Machine Operator Relationship Specialty Start Date End Date Joseph Crowell MD PCP - General Internal Medicine 06/09/19 10/03/20 Ney Banuelos DO PCP - General Internal Medicine 10/04/20 documented as of this encounter
--- OUTSIDE RECORDS SUMMARY | 2024-08-07 15:12 | XMS_ITS | Clinical Summary ---
Author Organization [facility] it Address [address] [place] [address] Care Team Providers Care Fiberglass Boat Finisher Name Role Phone Soheila Millan MD Primary Care Provider Allergies No known active allergies Medications amiodarone (PACERONE) 200 mg tablet Take 1 tablet (200 mg total) by mouth daily. Active atorvastatin (LIPITOR) 40 mg tablet Take 1 tablet (40 mg total) by mouth daily. 05/24/2021 Active carvediloL (COREG) 12.5 mg tablet Take 1 tablet (12.5 mg total) by mouth 2 (two) times a day with meals. Active clopidogreL (PLAVIX) 75 mg tablet Take 1 tablet (75 mg total) by mouth daily. 11/28/2020 Active hydrOXYzine HCL (ATARAX) 25 mg tablet Take 1 tablet (25 mg total) by mouth. 05/17/2021 Active sacubitriL-valsa rtan (ENTRESTO) 24-26 mg per tablet Take 1 tablet by mouth 2 (two) times a day. Active spironolactone (ALDACTONE) 25 mg tablet Take 2 split tablet (25 mg total) by mouth daily. Active torsemide (DEMADEX) 20 mg tablet 11/06/2021 Active Active Problems Problem Noted Date Diagnosed Date Melanoma 12/09/2019 Overview (08/01/2023): Stage IIb/IIc melanoma, following with Dr. Osorio Carlin, seen 11/19/2019. 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 11/19/2019 AICD (automatic cardioverter/defibrillator) pres ent 07/29/2019 CKD (chronic kidney disease) stage 3, GFR 30-59 ml/min 06/18/2019 CAD (coronary artery disease) 03/18/2012 Overview (08/01/2023): 2007 Inferior WI, CABG x 4 Overview: 2007 Inferior [place], CABG x 4 DM (diabetes mellitus), type 2 with renal compli cations 03/18/2012 Type 2 diabetes mellitus wit h diabetic nephropathy, without long-term current use of insulin 03/18/2012 Ischemic cardiomyopathy 03/18/2012 Overview (08/01/2023): Last echo 10/2010 LVEF 25-30% (new from 2008), increased biatrial pressures, moderate biatrial enlargement Overview: Last echo 10/2010 LVEF 25-30% (new from 2008), increased biatrial pressures, moderate biatrial enlargement Obstructive sleep apnea 03/18/2012 Overview (08/01/2023): [facility] Home Sleep Apnea Test: Date 06/16/2019; Wt 240#; BMI 35; TIMI 19, AI 5; HI 14; Unclassified apneas 0; Obstructive apneas 18; Central apneas 2; Mixed apneas 0; hypopneas 59; average oxygen saturation 92% (lowest 86% without saturations <88% for 5% or more of study) [facility] Polysomnogram treatment study. Date 07/04/2019. Wt 240#; BMI 35; SE 84 % SM 87 %; spent 15 % of the study in REM. On CPAP @ 14; RDI 9.1 (AHI 9.1), Central apneas 2; Obstructive apneas 0; Mixed apneas 0; hypopneas 0; RERAs 0; and, average oxygen saturation was 95%. For the entire study, PLMs ~50. Prestudy ESS 8; 2/4 RLS symptoms. - Obstructive Sleep Apnea - moderate; mostly hypopneas with obstructive apneas; without sleep related hypoventilation by 2019 home sleep apnea test. Overview: [facility] Home Sleep Apnea Test: Date 06/16/2019; Wt 240#; BMI 35; TIMI 19, AI 5; HI 14; Unclassified apneas 0; Obstructive apneas 18; Central apneas 2; Mixed apneas 0; hypopneas 59; average oxygen saturation 92% (lowest 86% without saturations <88% for 5% or more of study) [facility] Polysomnogram treatment study. Date 07/04/2019. Wt 240#; BMI 35; SE 84 % SM 87 %; spent 15 % of the study in REM. On CPAP @ 14; RDI 9.1 (AHI 9.1), Central apneas 2; Obstructive apneas 0; Mixed apneas 0; hypopneas 0; RERAs 0; and, average oxygen saturation was 95%. For the entire study, PLMs ~50. Prestudy ESS 8; 2/4 RLS symptoms. - Obstructive Sleep Apnea - moderate; mostly hypopneas with obstructive apneas; without sleep related hypoventilation by 2019 home sleep apnea test. Severe obesity (BMI 35.0-39.9) with comorbidity 03/18/2012 Immunizations Name Administration Dates Next Due [employer] SARS-CoV-2 COVID -19, vector-nr, [id number], preservative free 08/24/2020 [employer] SARS-CoV-2 COVID-19, mRNA, LNP-S, preservative free 04/19/2021 Surgical History Surgery Date Site/Laterality Comments OTHER SURGICAL HISTORY PROCEDURE:quadruple bypass OTHER SURGICAL HISTORY PROCEDURE:DEFIBRILATOR;COMMENT:PUT IN Medical History Medical History Date Comments Melanoma of heel (CMS/HCC) DX:Me lanoma of heel (HCC) Diabetes (CMS/HCC) DX:Diabetes ( HCC) Hypertension DX:Hypertension Family History Medical History Relation Name Comments Cancer Sister Relation Name Status Comments Sister Social History Tobacco Use Types Packs/Day Years Used Date Smoking Tobacco: Every Day Cigarettes Smokeless Tobacco: Never Alcohol Use Standard Drinks/Week Comments Yes 20 (1 standard drink = 0.6 oz pu re alcohol) Sex and Gender Information Value Date Recorded Sex Assigned at Not on file Legal Sex Male 12:15 PM EST Gender Identity Not on file Sexual Orientation Not on file Obstetrics History Last Filed Vital Signs Vital Sign Reading Time Taken Comments Blood Pressure 92/48 11/04/2023 11:47 AM EDT Sitting Right arm Pulse 60 11/04/2023 11:47 AM EDT Temperature - - Respiratory Rate - - Oxygen Saturation - - Inhaled Oxygen Concentration - - Weight 134 kg (294 lb 9.6 oz) 11/04/2023 11:47 AM EDT Height 175.3 cm (5' 9 ) 11/04/2023 11:4 7 AM EDT Body Mass Index 43.5 11/04/2023 11:47 AM EDT Plan of Treatment Upcoming Encounters Date Type Department Care Team (Late st Contact Info) Description 11/02/2024 2:00 PM EDT Office Visit [facility] Hematology Oncology [address] [place] [address] Saravanan Macias MD [address] [place] [address] Health Maintenance Due Date Last Done Comments Diabetes: Annual Foot Exam 1964 Diabetes: Annual Retina Eye Exam 1964 DTaP,Tdap,and Td Vaccines (1 - Tdap) 1973 Hepatitis A Vaccines (1 of 2 - Risk 2-dose series) 1973 Pneumococcal Vaccine: 50+ Years (1 of 2 - PCV) 1973 Zoster Vaccines (1 of 2) 1973 RSV Immunization Patients 60 + Years Old (1 - Risk 60-74 years 1-dose series) 2014 Diabetes: Annual GFR (Glomerular Filtration Rate) 09/27/2020 09/28/2019 Abdominal Aortic Aneurysm (AAA) Screen 04/28/2022 Cholesterol Screening (Lipid Panel) 04/28/2022 Colorectal Cancer Screening: Colonoscopy 04/28/2022 Depression Screening 04/28/2022 Falls Risk Assessment 04/28/2022 Hepatitis C Screening 04/28/2022 Medicare Annual Wellness Visit 04/28/2022 Social Influencers of Health Screening 04/28/2022 Hypertension/CHF/CAD Annual BMP Blood Test 04/29/2022 09/28/2019 Diabetes: Annual Urine Albumin-Creatinine Ratio (uACR) 05/02/2022 Diabetes: Blood Sugar Contro l Test (HGBA1C) 05/02/2022 COVID-19 Vaccine (3 - 2023-2 5 season) 2024 04/19/2021, 08/24/2020 Influenza Vaccine (#1) 2024 HIB Vaccines Aged Out No longer eligi ble based on patient's age to complete this topic HPV Vaccines Aged Out No longer eligi ble based on patient's age to complete this topic Hepatitis B Vaccines Aged Out No long er eligible based on patient's age to complete this topic IPV Vaccines Aged Out No longer eligi ble based on patient's age to complete this topic MMR Vaccines Aged Out No longer eligi ble based on patient's age to complete this topic Meningococcal ACWY Vaccine Aged Out N o longer eligible based on patient's age to complete this topic Meningococcal B Vacine Aged Out No lo nger eligible based on patient's age to complete this topic RSV Immunization Patients Under 20 months Aged Out No longer eligible b ased on patient's age to complete this topic Varicella Vaccines Aged Out No longer eligible based on patient's age to complete this topic Procedures Procedure Name Priority Date/Time Associated Diagnosis Comments ANNUAL BMP BLOOD TEST Routine 09/28/2019 from Last 3 Months or Most Recently Relevant to Health Maintenance Results * Annual BMP Blood Test (09/28/2019) Annual BMP Blood Test abstracted Historical Provider MD HEALTH MAINTENANCE Final Result from Last 3 Months or Most Recently Relevant to Health Maintenance Insurance [facility] MEDICARE Care Teams Fiberglass Boat Finisher Relationship Specialty Start Date End Date Soheila Millan MD [address] [place] [address] PCP - General 08/14/22
--- OUTSIDE RECORDS SUMMARY | 2024-08-07 15:12 | XMS_ITS | Clinical Summary ---
Author Organization [facility] Address [address] [place] [address] Care Team Providers Care Sterile Tech Name Role Phone Soheila Millan MD Primary Care Provider [phone] Allergies No known active allergies Medications Medication Sig Dispensed Refills Start Date End Date Status carvedilol (COREG) 12.5 MG tablet Take 1 tablet (12.5 mg total) by mouth 2 (two) times a day with meals. 0 Active amiodarone (PACERONE) 200 MG tablet Take 1 tablet (200 mg total) by mouth daily. 0 Active clopidogrel (PLAVIX) 75 MG tablet Take 1 tablet (75 mg total) by mouth daily. 0 Active spironolactone (ALDACTONE) 12.5 MG split tablet Take 2 split tablet (25 mg total) by mouth daily. 0 Active atorvastatin (LIPITOR) tablet 40 mg Take 1 tablet (40 mg total) by mouth daily. 0 Active sacubitril-valsartan (ENTRESTO) 24-26 MG per tablet Take 1 tablet by mouth 2 (two) times a day. 0 Active torsemide (DEMADEX) 20 MG tablet 0 11/06/2021 Active hydrOXYzine (ATARAX) 25 MG tablet Take 1 tablet (25 mg total) by mouth. 0 Active simvastatin (ZOCOR) 80 MG tablet Take 1 tablet (80 mg total) by mouth every night at bedtime. 0 Active isosorbide mononitrate (IMDUR) 60 MG 24 hr tablet Take 1 tablet (60 mg total) by mouth daily. 0 Active metoprolol tartrate (LOPRESSOR) 50 MG tablet Take 1 tablet (50 mg total) by mouth 2 (two) times a day. 0 Active Active Problems Problem Noted Date Diagnosed Date Malignant melanoma of left lower extremity inclu ding hip 11/19/2019 Colitis 11/19/2019 AICD (automatic cardioverter/defibrillator) pres ent 07/29/2019 CKD (chronic kidney disease) stage 3, GFR 30-59 ml/min 06/18/2019 History of CVA (cerebrovascular accident) 2019 Overview: Overview: Notes stroke on the table when placing cardiac stent a few years ago Coronary artery disease invo lving [place] coronary artery of [place] heart without angina pectoris 03/18/2012 Overview: Overview: 2007 Inferior [place], CABG x 4 Type 2 diabetes mellitus wit h diabetic nephropathy, without long-term current use of insulin 03/18/2012 Ischemic cardiomyopathy 03/18/2012 Overview: Overview: Last echo 10/2010 LVEF 25-30% (new from 2008), increased biatrial pressures, moderate biatrial enlargement Obstructive sleep apnea 03/18/2012 Overview: Overview: [facility] Home Sleep Apnea Test: Date 06/16/2019; Wt 240#; BMI 35; TIMI 19, AI 5; HI 14; Unclassified apneas 0; Obstructive apneas 18; Central apneas 2; Mixed apneas 0; hypopneas 59; average oxygen saturation 92% (lowest 86% without saturations <88% for 5% or more of study) [facility] Polysomnogram treatment study. Date [...] Severe obesity (BMI 35.0-39.9) with comorbidity 03/18/2012 Family History Medical History Relation Name Comments Cancer Sister Relation Name Status Comments Sister Social History Tobacco Use Types Packs/Day Years Used Date Smoking Tobacco: Every Day Cigarettes 0.5 Smokeless Tobacco: Never Alcohol Use Standard Drinks/Week Comments Yes 20 (1 standard drink = 0.6 oz pu re alcohol) Sex and Gender Information Value Date Recorded Sex Assigned at Not on file Gender Identity Not on file Sexual Orientation Not on file Job Start Date Occupation Industry Not on file Not on file Not on file Last Filed Vital Signs Vital Sign Reading Time Taken Comments Blood Pressure 92/48 11/04/2023 11:47 AM EDT Pulse 60 11/04/2023 11:47 AM EDT Temperature 36.7 ??C (98.1 ??F) 11/04/2023 1 1:47 AM EDT Respiratory Rate - - Oxygen Saturation 95% 11/04/2023 11: 47 AM EDT Inhaled Oxygen Concentration - - Weight 133.6 kg (294 lb 9.6 oz) 024 11:47 AM EDT Height 175.3 cm (5' 9 ) 11/04/2023 11:4 7 AM EDT Body Mass Index 43.5 11/04/2023 11:47 AM EDT Plan of Treatment Health Maintenance Due Date Last Done Comments Hepatitis C Screening 1954 Pneumococcal Vaccine (1 of 2 - PCV) 1960 Depression Screening 1966 Preventative Health Evaluation 1972 Tobacco Cessation Counseling 1972 Shingrix-Zoster Vaccine (1 o f 2) 1973 Colon Cancer Screening (Colonoscopy) 08/26/1999 RSV Adult > 60+ Yrs or (1 - Risk 60-74 years 1-dose series) 2014 Abdominal Aortic Aneurysm (AAA) Screening 08/26/2019 Fall Risk Assessment 08/26/2019 COVID-19 Vaccine (3 - 2023-2 5 season) 2024 04/19/2021, 08/24/2020 Influenza Vaccine (#1) 2024 , 04/12/2020 DTap / Tdap / Td (2 - Td or Tdap) 02/18/2028 02/17/2018 Hepatitis B Vaccines Aged Out No long er eligible based on patient's age to complete this topic RSV Ped < 20 months Aged Out No longe r eligible based on patient's age to complete this topic Care Teams Sterile Tech Relationship Specialty Start Date End Date Soheila Millan MD [address] [place] [address] PCP - General Family Medicine 08/14/22
== END 2024-08-07 14:10 | disposition home or self-care (01) ==
PROVIDERS: PCP Family Medicine; Visit Provider Registered Nurse Emergency
DX: M25.552 Pain in left hip (principal); I95.9 Hypotension, unspecified; R42 Dizziness and giddiness; R11.0 Nausea
CPT/HCPCS: 99213; G2211

== ENCOUNTER 2024-08-07 14:15 | Inpatient (IN) | payer MEDICARE, SELFPAY ==
[2024-08-07] VITALS (34 sets, daily range): BP systolic 76–115; BP diastolic 30–63; PULSE 54–63; RESP 12–19; TEMP 35.5–36.6; O2SAT 93–99; BMI 41.3; BMI 43.9
--- NOTE | ~2024-08-07 | CT_ITS ---
CLINICAL HISTORY: acute renal failure CT abdomen and pelvis without contrast Comparison: None Findings: Mild cardiomegaly. Lung bases are clear. Kidneys are normal in size. There is mild bilateral hydroureter and mild bilateral hydronephrosis. No renal or ureteral stones are present. The urinary bladder is moderately distended. Spleen, adrenal glands, pancreas, gallbladder and liver unremarkable. No bowel obstruction, pneumoperitoneum, or pneumatosis. Fat containing umbilical hernia. The prostate gland measures 4 x 4.5 x 3.1 cm, for a prostate volume of 36 mL, Borderline enlarged. The bones are intact. Multilevel degenerative change of the lumbar spine Extensive arterial vascular calcifications of the aorta and the branch vessels present. IMPRESSION: Mild bilateral hydroureteronephrosis and mildly distended urinary bladder. Borderline prostatomegaly. Findings could be associated with bladder outlet obstruction. This document has been electronically signed by: Jeevan Bautista MD on 08/07/2024 19:13:46
--- NOTE | ~2024-08-07 | XR_ITS ---
EXAMINATION: XR CHEST 1 VIEW HISTORY: sob COMPARISON: Comparison is made with the prior examination dated 03/14/2024. FINDINGS: Two AP portable views of the chest performed at 2:58 PM are submitted. A left subclavian dual-chamber pacemaker is unchanged in position. The lungs are expanded and clear. There is no pleural effusion, pneumothorax, or pulmonary vascular congestion. The heart is enlarged. The patient is status post median sternotomy and CABG. The bones are intact. XR/XR chest 1V IMPRESSION: Cardiomegaly. No acute cardiopulmonary abnormality. Electronically signed by: Ney Parker MD 08/07/2024 03:17 PM EDT
--- NOTE | 2024-08-07 14:15 | ED_ITS ---
HPI - General Adult General Chief complaint: Dizziness Stated complaint: Hypotensive Time Seen by Provider: 08/07/24 14:32 Source: patient and old records reviewed Mode of arrival: ambulatory Limitations: no limitations History of Present Illness ED Provider: SERA ARELLANO narrative: 68 yo male with PMH of CAD s/p CABG, HTN, CHF on torsemide, HLD, CVA who is coming from home with one week of loose stools states he has had accidents in his pants, anytime he eats he poops. He denies blood or abdominal pain no fevers, no recent abx use. He states he feels weak and dizzy. NO CP/SOB, states he blames his isosorbide as when he takes the full dose this week his BPs are in the 80s, when he takes a half dose it is higher in the 90s. He is making urine. He has been weak and tired. He went to pain clinic today and they noted hypotension so he was sent here. MD complaint: low BPs, diarrhea Onset (ago): day(s) (7) Relieving factors: rest Exacerbating factors: eating Associated symptoms: loss of appetite, malaise and weakness Treatments prior to arrival: none Related Data Home Medications ?Medication ?Instructions ?Recorded ?Confirmed amiodarone 200 mg tablet 1 tab PO DAILY 04/11/20 02/27/24 atorvastatin 40 mg tablet 1 tab PO DAILY 04/11/20 02/27/24 carvedilol 12.5 mg tablet 1 tab PO BID 04/11/20 02/27/24 clopidogrel 75 mg tablet 1 tab PO DAILY 04/11/20 02/27/24 sacubitril 24 mg-valsartan 26 mg 1 tab PO BID 04/11/20 02/27/24 tablet (Entresto) simvastatin 80 mg tablet 1 tab PO BEDTIME 04/11/20 02/27/24 spironolactone 25 mg tablet 0.5 tab PO DAILY 04/11/20 02/27/24 dapagliflozin propanediol 10 mg 10 mg PO DAILY 01/03/24 02/27/24 tablet (Farxiga) escitalopram oxalate 10 mg tablet 10 mg PO DAILY 01/03/24 02/27/24 hydroxyzine HCl 25 mg tablet 25 mg PO TID 01/03/24 02/27/24 tamsulosin 0.4 mg capsule 0.4 mg PO DAILY 01/03/24 02/27/24 torsemide 20 mg tablet mg PO 01/03/24 02/27/24 allopurinol 300 mg tablet 300 mg PO DAILY 08/07/24 gabapentin 800 mg tablet mg PO 08/07/24 mexiletine 150 mg capsule mg PO 08/07/24 sacubitril 49 mg-valsartan 51 mg 1 tab PO BID 08/07/24 tablet (Entresto) trazodone 100 mg tablet 100 mg PO BEDTIME 08/07/24 Previous Rx's ?Medication ?Instructions ?Recorded albuterol sulfate 90 mcg/actuation 1 inh inhalation QID PRN shortness 11/22/21 aerosol inhaler of breath or wheezing #8.5 grams ipratropium bromide 17 2 puff inhalation QID #12.9 grams 11/22/21 mcg/actuation HFA aerosol inhaler (Atrovent HFA) meloxicam 15 mg tablet 15 mg PO DAILY #5 tabs 03/14/24 methocarbamol 750 mg tablet 1,500 mg (2 x 750 mg) PO QID PRN 03/14/24 pain #30 tabs Allergies Allergy/AdvReac Type Severity Reaction Status Date / Time No Known Allergies Allergy Verified 08/07/24 14:18 Review of Systems 2 Review of Systems: Constitutional : No Fever, No Chills, pos Fatigue ENT/Mouth : No sore throat, No Rhinorrhea Eyes: No Eye Pain, No Swelling, No Redness Cardiovascular : No Chest Pain, No SOB, No Dyspnea on Exertion Respiratory : No Cough, No Sputum Gastrointestinal : No Nausea, No Vomiting, pos Diarrhea, No abdominal Pain Genitourinary : No Dysuria, No Urinary Frequency, No Hematuria, Musculoskeletal : No joint pain, No Myalgias, No Joint Swelling Skin : No Skin Lesions, No rash Neuro : pos Weakness, No Numbness, pos Dizziness, no Headache All other systems reviewed and are negative PMFSH Past Medical History Attestation statement: The following information was validated with the patient. Source: old records reviewed Medical History Coronary artery disease Head injury Alcohol abuse Syncope High cholesterol HTN (hypertension) Borderline diabetes mellitus CVA (cerebral vascular accident) CHF (congestive heart failure) Surgical History Status post coronary artery bypass graft Stented coronary artery H/O heart bypass surgery Social History Social History Household Members: Children Housing: House Do you presently have visiting nurse or other home services: No Alcohol intake: current Alcohol intake frequency: 3 or more drinks per day Alcohol type: beer Years Smoked: 50 Substance Use Type: Marijuana and Painkillers Advance Directives: Yes Advance Directives on File: Yes Advance Directives Date on File: 11/22/21 service: No Current occupational status: disabled Physical Exam ED Vital Signs: Vital Signs - 24 hr 08/07/24 14:18 08/07/24 15:11 08/07/24 15:22 Temperature 95.9 F L Pulse Rate 57 54 55 Respiratory Rate 16 19 19 Blood Pressure 82/34 L 80/39 L 76/47 L Pulse Oximetry 95 97 98 Oxygen Delivery Method Room Air Room Air Room Air 08/07/24 15:25 08/07/24 15:41 08/07/24 15:45 Temperature Pulse Rate 55 57 56 Respiratory Rate 18 18 12 Blood Pressure 76/30 L 86/38 L 94/47 L Pulse Oximetry 98 97 97 Oxygen Delivery Method Room Air Room Air Room Air 08/07/24 15:56 08/07/24 16:11 08/07/24 16:25 Temperature Pulse Rate 56 55 57 Respiratory Rate 14 12 13 Blood Pressure 96/39 L 89/35 L 99/51 L Pulse Oximetry 96 98 99 Oxygen Delivery Method Room Air Room Air Room Air 08/07/24 17:28 08/07/24 17:36 08/07/24 17:36 Temperature 97.9 F Pulse Rate 60 57 57 Respiratory Rate 18 Blood Pressure 87/50 L 97/55 L 87/40 L Pulse Oximetry 97 Oxygen Delivery Method Room Air 08/07/24 17:36 08/07/24 17:48 08/07/24 18:03 Temperature Pulse Rate 60 58 60 Respiratory Rate 14 17 Blood Pressure 92/52 L 91/45 L 92/36 L Pulse Oximetry 96 96 Oxygen Delivery Method Room Air Room Air 08/07/24 18:18 08/07/24 18:31 08/07/24 18:33 Temperature Pulse Rate 57 58 58 Respiratory Rate 17 12 12 Blood Pressure 92/36 L 91/47 L 92/49 L Pulse Oximetry 97 95 95 Oxygen Delivery Method Room Air Room Air Room Air 08/07/24 18:48 08/07/24 19:04 08/07/24 20:03 Temperature Pulse Rate 59 61 58 Respiratory Rate 14 16 14 Blood Pressure 79/40 L 110/62 91/41 L Pulse Oximetry 95 95 93 Oxygen Delivery Method Room Air Room Air Room Air 08/07/24 20:19 08/07/24 20:27 08/07/24 20:33 Temperature 97.5 F Pulse Rate 63 60 62 Respiratory Rate 14 15 15 Blood Pressure 104/35 L 92/44 L 91/37 L Pulse Oximetry 95 94 95 Oxygen Delivery Method Room Air Room Air Room Air 08/07/24 20:48 08/07/24 20:48 08/07/24 21:03 Temperature Pulse Rate 59 59 60 Respiratory Rate 16 16 19 Blood Pressure 102/36 L 102/36 L 100/63 Pulse Oximetry 93 95 95 Oxygen Delivery Method Room Air Room Air Room Air 08/07/24 21:18 08/07/24 21:35 08/07/24 21:48 Temperature 97.4 F Pulse Rate 60 59 59 Respiratory Rate 19 13 13 Blood Pressure 100/56 L 96/51 L 84/34 L Pulse Oximetry 94 95 96 Oxygen Delivery Method Room Air Room Air Room Air 08/07/24 21:50 Temperature Pulse Rate 58 Respiratory Rate 16 Blood Pressure 80/32 L Pulse Oximetry 94 Oxygen Delivery Method Room Air BMI result Body Mass Index 41.3 Appearance: Alert. Oriented X3. No acute distress. Eyes: Pupils equal, round and reactive to light. ENT: Pharynx very dry MMM. Neck: Normal inspection. Neck supple. CVS: Normal heart rate and rhythm. Pulses normal. Respiratory: No respiratory distress. Breath sounds normal. Abdomen: Soft and nontender. Skin: Skin warm and dry. pale skin color. poor skin turgor. Extremities: No lower extremity edema. No calf ttp Neuro: Oriented X 3. No motor deficit. No sensory deficit. CN2-12 intact Course Course Course Narrative: This is a Rapid Medical Exam performed in triage by Amanda Pollock PA-C. Full HPI, ROS and PE to be performed by primary ED provider. 68-year-old male with a past medical history of CVA, osteoarthritis, diabetes, left hip pain falls with pain management presenting to the ED from pain management office s/p found to be hypotensive 70s / 40s, lightheaded, dizzy, nauseous, w/diarrhea and chills. +mild SOB PE: in wheelchair, hypotensive 82/34 Plan: EKG, labs, viral testing, UA, CXR, orthostatics Reevaluation(s) Reevaluation #1: BP responding to fluids - after this will hold given CHF - EF 30% Reevaluation #2: suspect hypotension due to renal failure, diuretic use and less likely infection / severe sepsis signed out to Dr. Marshall CT scan and stool studies pending Medications Administered Discontinued Medications Generic Name Dose Route Start Last Admin Trade Name Freq PRN Reason Stop Dose Admin Sodium Chloride 1,000 mls @ 999 mls/hr 08/07/24 14:30 08/07/24 17:43 Ns IV 08/07/24 15:30 Infused .Q1H1M STACY Infusion Metronidazole 500 mg in 100 mls @ 100 mls/hr 08/07/24 14:47 08/07/24 16:27 Flagyl IV 08/07/24 15:46 Infused ONCE ONE Infusion Lactated Ringer's 1,000 mls @ 999 mls/hr 08/07/24 15:39 08/07/24 17:43 Lr IV 08/07/24 16:39 Infused .Q1H1M ONE Infusion Albumin Human 100 mls @ 133.333 mls/hr 08/07/24 16:00 08/07/24 19:11 Kedbumin 25 % IV 08/07/24 17:44 Infused Q1H STACY Infusion Sodium Chloride 1,000 mls @ 999 mls/hr 08/07/24 20:09 08/07/24 21:35 Ns IVCONT 08/07/24 21:09 Infused .Q1H1M ONE Infusion Medical Decision Making Medical Decision Making MDM Narrative: 68 yo male with PMH of CAD s/p CABG, HTN, CHF on torsemide, HLD, CVA here with c/o diarrhea poor PO intake hypotension and dizziness suspect based off his exam he is clinically dry and in renal failure - labs, UA, CT scan for obstructive pathology, colitis, empiric flagyl until stool studies back. He needs resuscitation but after 2L will hold given CHF. Possible renal failure, c diff, colitis. Last Cr was 2.64 in 2023. BUN elevated but he is not encephalopathic at this time I received sign-out from my colleague Dr. Dela Cruz CT scan does not show any acute abnormality, patient does have mild bilateral hydroureteronephrosis and mildly distended urinary bladder. His blood pressure improved to the 110s systolic I discussed the patient with Dr. Cortez. However, at 20:05, patient's blood pressure dropped to the high 80s. Patient receiving an additional L of fluid. Patient is urinating quite a bit. Patient does not seem to be fluid overloaded. Patient has already received 2 L of fluids, 2 doses of albumin, and metronidazole I discussed with Dr. Cortez that if after this L of fluids the patient's blood pressure and map does not improve, he may need pressors and go to the intensive care unit. After the 3 L of IV fluids, patient's blood pressure initially improved. However, patient's blood pressure dropped again to 80s systolic. Patient overall states that he has no symptoms, states that he feels better overall, the diarrhea has significantly slowed down since yesterday according to the patient after taking a dose of antidiarrheal, patient believes took loperamide CT scan of the abdomen does not show any acute pathology that would explain why patient has diarrhea. However, taking torsemide and spironolactone in the settings of dehydration due to diarrhea , likely worsened patient's dehydration and hypotension. Patient was started on Levophed. Empirically, patient was started on ceftriaxone, patient already received metronidazole. As mentioned above, sepsis is not suspected, hypotension most likely secondary to dehydration Patient's stool studies are still pending. I discussed the patient with Dr. Reaves, accepted to the ICU Differential Diagnosis Differential Diagnoses: The differential diagnosis associated with the presentation includes renal failure given poor PO intake/diarrhea still taking his diuretic, c diff, fatigue, viral syndrome Admission/Observation Consideration of admission/observation: Escalation of care including admission/observation considered needs admit given new onset renal ds Lab Data MDM Lab Attestation statement: I reviewed the patient's lab results. 08/07/24 15:23 08/07/24 15:23 Labs: Lab Results 08/07/24 08/07/24 08/07/24 Range/Units 15:22 15:23 15:24 WBC 7.4 (4.8-10.8) X10*3/uL RBC 4.19 L (4.60-5.80) X10*6/uL Hgb 11.9 L (14.0-18.0) g/dl Hct 35.4 L (42.0-52.0) % MCV 84.5 (80.0-98.0) fL MCH 28.4 (27.0-33.0) pg MCHC 33.6 (31.0-36.0) g/dl RDW 14.6 (11.0-16.0) % Plt Count 156 L (160-400) X10*3/uL MPV 10.8 (9.4-12.4) fL Immature Gran % (Auto) 1.5 H (0.0-0.4) % Neut % (Auto) 73.6 H (45-73) % Lymph % (Auto) 13.8 L (20-40) % [place] % (Auto) 7.7 (2-11) % Eos % (Auto) 3.0 (0-4) % Baso % (Auto) 0.4 (0-2) % Lymph # (Auto) 1.0 L (1.2-4.9) X10*3/uL [place] # (Auto) 0.6 (0.1-1.2) X10*3/uL Eos # (Auto) 0.2 (0.0-0.4) X10*3/uL Baso # (Auto) 0.0 (0.0-0.2) X10*3/uL Abs Immat Gran (auto) 0.11 H (0.00-0.03) X10*3/uL Absolute Neuts (auto) 5.5 (2.0-8.3) x10*3/uL Absolute Nucleated RBC 0.000 (0.0-0.012) X10*3/uL Nucleated RBC % (auto) 0.0 (0.0-0.2) /100WBC Hold Blue Top SEE NOTE Sodium 131 L (135-145) mmol/L Potassium 4.4 (3.3-5.1) mmol/L Chloride 93 L (96-108) mmol/L Carbon Dioxide 23 (22-29) mmol/L Anion Gap 19 (12-20) BUN 117 H (9-16) mg/dL Creatinine 5.42 H* (0.5-1.4) mg/dL Estim Creat Clear Calc 16.9 Estimated GFR 11 Random Glucose 119 H (60-115) mg/dL Lactic Acid 1.4 (0.5-2.0) mmol/L Calcium 9.1 (8.4-10.2) mg/dL Magnesium 1.8 (1.6-2.6) mg/dL Total Bilirubin 0.4 (0.0-1.0) mg/dL Direct Bilirubin 0.2 (0.0-0.5) mg/dL AST 20 (5-37) U/L ALT 23 (0-40) U/L Alkaline Phosphatase 89 (39-117) U/L Troponin I High Sens 13.3 (<3.5-35.0) ng/L B-Natriuretic Peptide 43 (<100) pg/mL Total Protein 7.3 (6.5-8.0) g/dL Albumin 4.1 (3.5-5.0) g/dL Urine Color Urine Appearance Urine pH (5.0-9.0) Ur Specific [place] (1.005-1.025) Urine Protein (Neg-Trace) mg/dL Urine Glucose (UA) (Negative) mg/dL Urine Ketones (Negative) mg/dL Urine Blood (Negative) Urine Nitrite (Negative) Ur Leukocyte Esterase (Negative) Ur Random Sodium mmol/L Urine Creatinine mg/dL Influenza Type A (PCR) NEGATIVE (Negative) Influenza Type B (PCR) NEGATIVE (Negative) RSV RNA Qual (PCR) NEGATIVE (Negative) SARS-CoV-2 RNA (RT-PCR) NEGATIVE (Negative) 08/07/24 08/07/24 Range/Units 17:52 20:29 WBC (4.8-10.8) X10*3/uL RBC (4.60-5.80) X10*6/uL Hgb (14.0-18.0) g/dl Hct (42.0-52.0) % MCV (80.0-98.0) fL MCH (27.0-33.0) pg MCHC (31.0-36.0) g/dl RDW (11.0-16.0) % Plt Count (160-400) X10*3/uL MPV (9.4-12.4) fL Immature Gran % (Auto) (0.0-0.4) % Neut % (Auto) (45-73) % Lymph % (Auto) (20-40) % [place] % (Auto) (2-11) % Eos % (Auto) (0-4) % Baso % (Auto) (0-2) % Lymph # (Auto) (1.2-4.9) X10*3/uL [place] # (Auto) (0.1-1.2) X10*3/uL Eos # (Auto) (0.0-0.4) X10*3/uL Baso # (Auto) (0.0-0.2) X10*3/uL Abs Immat Gran (auto) (0.00-0.03) X10*3/uL Absolute Neuts (auto) (2.0-8.3) x10*3/uL Absolute Nucleated RBC (0.0-0.012) X10*3/uL Nucleated RBC % (auto) (0.0-0.2) /100WBC Hold Blue Top Sodium (135-145) mmol/L Potassium (3.3-5.1) mmol/L Chloride (96-108) mmol/L Carbon Dioxide (22-29) mmol/L Anion Gap (12-20) BUN (9-16) mg/dL Creatinine (0.5-1.4) mg/dL Estim Creat Clear Calc Estimated GFR Random Glucose (60-115) mg/dL Lactic Acid (0.5-2.0) mmol/L Calcium (8.4-10.2) mg/dL Magnesium (1.6-2.6) mg/dL Total Bilirubin (0.0-1.0) mg/dL Direct Bilirubin (0.0-0.5) mg/dL AST (5-37) U/L ALT (0-40) U/L Alkaline Phosphatase (39-117) U/L Troponin I High Sens (<3.5-35.0) ng/L B-Natriuretic Peptide (<100) pg/mL Total Protein (6.5-8.0) g/dL Albumin (3.5-5.0) g/dL Urine Color Yellow Urine Appearance Clear Urine pH 5.5 (5.0-9.0) Ur Specific [place] 1.010 (1.005-1.025) Urine Protein Negative (Neg-Trace) mg/dL Urine Glucose (UA) 250 H (Negative) mg/dL Urine Ketones Negative (Negative) mg/dL Urine Blood Negative (Negative) Urine Nitrite Negative (Negative) Ur Leukocyte Esterase Negative (Negative) Ur Random Sodium 48.0 mmol/L Urine Creatinine 38.96 mg/dL Influenza Type A (PCR) (Negative) Influenza Type B (PCR) (Negative) RSV RNA Qual (PCR) (Negative) SARS-CoV-2 RNA (RT-PCR) (Negative) Independent Interpretation I performed an independent interpretation of an: EKG Interpretation: Rate: 55 Rhythm: sinus bradycardia [place]: left Normal P waves. 1st degree AVB RBBB ST T wave : inverted t waves V1 and V2, no MANUEL qTC: 506 prior studies: no sig change from 2020 The study has been interpreted contemporaneously by me. . External Record Review External record reviewed: Inpatient record Critical Care Time Critical Care Time Critical Care Time: Yes Total Critical Care Time: 60 Attestation: review of records, 2L of IVF for resuscitation, repeat interventions for hypotension I attest to this time spent taking care of the patient Discharge Plan Discharge Clinical Impression: Acute renal failure, Acute diarrhea, Acute dehydration, Acute hypotension Patient Disposition: Admitted As Inpatient Prescriptions: No Action atorvastatin 40 mg tablet 1 tab PO DAILY carvedilol 12.5 mg tablet 1 tab PO BID amiodarone 200 mg tablet 1 tab PO DAILY clopidogrel 75 mg tablet 1 tab PO DAILY simvastatin 80 mg tablet 1 tab PO BEDTIME spironolactone 25 mg tablet 0.5 tab PO DAILY Entresto 24-26 mg tablet 1 tab PO BID albuterol sulfate 90 mcg/actuation HFA aerosol inhaler 1 inh inhalation QID PRN (Reason: shortness of breath or wheezing) Qty: 8.5 0RF Atrovent HFA 17 mcg/actuation HFA aerosol inhaler 2 puff inhalation QID Qty: 12.9 0RF meloxicam 15 mg tablet 15 mg PO DAILY Qty: 5 0RF methocarbamol 750 mg tablet 1,500 mg PO QID PRN (Reason: pain) Qty: 30 0RF hydroxyzine HCl 25 mg tablet 25 mg PO TID dapagliflozin propanediol [Farxiga] 10 mg tablet 10 mg PO DAILY torsemide 20 mg tablet PO tamsulosin 0.4 mg capsule 0.4 mg PO DAILY escitalopram oxalate 10 mg tablet 10 mg PO DAILY mexiletine 150 mg capsule PO Entresto 49-51 mg tablet 1 tab PO BID allopurinol 300 mg tablet 300 mg PO DAILY trazodone 100 mg tablet 100 mg PO BEDTIME gabapentin 800 mg tablet PO Print Language: Tajik Sepsis Bolus Exclusion Sepsis Bolus Exclusion CHF/Renal Failure This patient met severe sepsis criteria due to the following condition(s):: H ypotension In my clinical judgement the administration of 30 ml/kg of crystalloid would be detrimental to this patient due to the patient's following conditions:: NYHA class III or IV Heart Failure(symptoms with low exertion or rest) and Concern for fluid overload Replace the 30 mls/kg with (Zero amount not acceptable and all fluids for severe sepsis must be given at GREATER than 125 mls/hr) Crystalloids amount given in mls: (rate must be at least 150cc/hr): 2,000 Colloids amount given in mls:: 133
--- NOTE | 2024-08-07 14:16 | ECG_ITS ---
Test Reason : hypotensive Blood Pressure : */* mmHG Vent. Rate : 55 BPM Atrial Rate : 55 BPM P-R Int : 272 ms QRS Dur : 154 ms QT Int : 508 ms P-R-T Axes : 30 -78 59 degrees QTcB Int : 485 ms Sinus bradycardia with 1st degree A-V block (RBBB and left anterior fascicular block) Inferior infarct (cited on or before 11-Apr-2020) Anterolateral infarct (cited on or before 06-Jan-2021) Abnormal ECG When compared with ECG of 06-Jan-2021 18:10, MI interval has increased Non-specific intra-ventricular conduction block has replaced Right bundle branch block Questionable change in initial forces of Anterolateral leads Referred By: Amanda Pollock Electronically Signed By: Huy Oliver
[2024-08-07] MEDS: metroNIDAZOLE/NS 500 MG/100 ML PIGGYBACK 100 MG IV (15:27)
[2024-08-07] MEDS: 0.9 % Sodium Chloride 1,000 ML 999 ML IV (15:27)
[2024-08-07 15:32] LABS: MANUAL DIFF FLAG NO
[2024-08-07 15:41] LABS: Basophils Percent Auto 0.4 % (0-2); Eosinophils Absolute Auto 0.2 X10*3/uL (0.0-0.4); Hematocrit 35.4 % (42.0-52.0); Hemoglobin 11.9 g/dl (14.0-18.0); Imm Gran Abs Auto 0.11 X10*3/uL (0.00-0.03); Imm Gran Pct Auto 1.5 % (0.0-0.4); Lymphocytes Percent Auto 13.8 % (20-40); Mean Corpuscular HGB Conc 33.6 g/dl (31.0-36.0); Mean Corpuscular Hemoglobin 28.4 pg (27.0-33.0); Mean Corpuscular Volume 84.5 fL (80.0-98.0); Mean Platelet Volume 10.8 fL (9.4-12.4); Monocytes Absolute Auto 0.6 X10*3/uL (0.1-1.2); Monocytes Percent Auto 7.7 % (2-11); Neutrophils Absolute Auto 5.5 x10*3/uL (2.0-8.3); Neutrophils Percent Auto 73.6 % (45-73); Platelet Count 156 X10*3/uL (160-400); Red Blood Count 4.19 X10*6/uL (4.60-5.80); Red Cell Distribution Width 14.6 % (11.0-16.0); White Blood Count 7.4 X10*3/uL (4.8-10.8)
[2024-08-07] MEDS: Lactated Ringers 1,000 ML 999 ML IV (15:42)
[2024-08-07 15:52] LABS: Lactic Acid 1.4 mmol/L (0.5-2.0)
[2024-08-07 15:57] LABS: B Type Natriuretic Peptide 43 pg/mL (<100)
[2024-08-07] MEDS: Albumin Human 25 % 100 ML 133.33 ML IV ×2 (15:57→18:25)
[2024-08-07 15:59] LABS: Troponin-I High Sensitivity 13.3 ng/L (<3.5-35.0)
[2024-08-07 16:08] LABS: Alanine Aminotransferase 23 U/L (0-40); Albumin Level 4.1 g/dL (3.5-5.0); Alkaline Phosphatase 89 U/L (39-117); Anion Gap 19 (12-20); Aspartate Amino Transferase 20 U/L (5-37); Bilirubin Direct 0.2 mg/dL (0.0-0.5); Bilirubin Total 0.4 mg/dL (0.0-1.0); Blood Urea Nitrogen 117 mg/dL (9-16); Calcium 9.1 mg/dL (8.4-10.2); Carbon Dioxide 23 mmol/L (22-29); Chloride 93 mmol/L (96-108); Creatinine Clr Calc Pharmacy 16.9; Estimated Glomerular Filt Rate 11; Glucose Random 119 mg/dL (60-115); Magnesium 1.8 mg/dL (1.6-2.6); Potassium 4.4 mmol/L (3.3-5.1); Sodium 131 mmol/L (135-145); Total Protein 7.3 g/dL (6.5-8.0)
[2024-08-07 16:14] LABS: Influenza A PCR NEGATIVE (Negative); Influenza B PCR NEGATIVE (Negative); Resp Syncy Virus RNA Qual PCR NEGATIVE (Negative); SARS COV2 PCR INHOUSE NEGATIVE (Negative)
--- NOTE | 2024-08-07 17:46 | PC.NURSE ---
Patient away for imaging. Aware of plan to place chopra catheter for JONATHAN. Attempted bowel movement at bedside commode with assistance just prior to going to imaging. While standing up, patient turned with IV tubing and accidentally removed IV access from right inner wrist. Pressure applied, secured with tape. Provider (Dr. Marshall) aware.
[2024-08-07 18:07] LABS: Creatinine Urine 38.96 mg/dL
--- NOTE | 2024-08-07 18:41 | PC.NURSE ---
Patient has been frequently urinating large amounts in urinal. Spoke with Dr. Marshall regarding chopra catheter insertion order. Dr. Marshall to discontinue order.
[2024-08-07] MEDS: 0.9 % Sodium Chloride 1,000 ML 999 ML IVCONT (20:37)
[2024-08-07 20:43] LABS: Appearance Urine Clear; Color Urine Yellow; Glucose Urine UA 250 mg/dL (Negative); Leukocyte Esterase Urine Negative (Negative); Nitrite Urine Negative (Negative); PH 5.5 (5.0-9.0); Urine Blood Negative (Negative); Urine Ketones Negative (Negative); Urine Protein Negative (Neg-Trace)
[2024-08-07] MEDS: Norepinephrine Bitartrate/D5W 8 MG/250 ML PLAST..BAG 11.91 MG IVCONT (22:11)
[2024-08-07] MEDS: cefTRIAXone sodium 1 GM VIAL IVPUSH (22:12)
--- NOTE | 2024-08-07 22:39 | PC.NURSE ---
Michela Corbin (acid tank liner) at bedside speaking with patient. Preparing for ICU admit.
--- NOTE | 2024-08-07 22:49 | PC.NURSE ---
Norepinephrine infusing at 0.11 mcg/kg/min at this time. Weight 134.9 kg per bedscale. Preparing for ICU admission.
--- NOTE | 2024-08-07 22:57 | PC.NURSE ---
RN to RN report given to Edilberto (MECHANICAL ENGINEERING INTERN). Admitting to ICU.
--- NOTE | 2024-08-07 23:00 | PM.CCHP ---
History of Present Illness Date of Service: 08/07/24 Attending physician on admission: Jesus Martinez Chief Complaint: Hypotension The patient is a 68-year-old? male? With a past medical history of hypertension, coronary artery disease s/p CABG, congestive heart failure ( on torsemide and spironolactone), hyperlipidemia? and? CVA who presented to the emergency department from the pain clinic with hypotension and dizziness. Patient reported abdominal pain,? significant diarrhea x 1 week.? He has been taking all his medications including his diuretics and blood pressure medications.?? On arrival to the emergency department patient systolic blood pressures 70s, temp 95.9 degrees, satting 95-898% on room air Laboratory data was significant for sodium 131, chloride 93, BUN 117, and creatinine 5.42 ?Urine negative for UTI IMAGING:? ?Abdominal CT:? mild bilateral? hydroureteronephrosis ED COURSE:? ?Patient received a total of 3 L bolus, metronidazole 500 mg, and ceftriaxone 1 g and started on Levophed Review of Systems Review of Systems: Yes all other systems are reviewed and are negative PMFSH Past Medical History Medical History Coronary artery disease Head injury Alcohol abuse Syncope High cholesterol HTN (hypertension) Borderline diabetes mellitus CVA (cerebral vascular accident) CHF (congestive heart failure) Surgical History Surgical History Status post coronary artery bypass graft Stented coronary artery H/O heart bypass surgery Social History Social History Household Members: Family Household Members Other:: son lives next door Housing: House Do you presently have visiting nurse or other home services: No Alcohol intake: current Alcohol intake frequency: 3 or more drinks per day Alcohol type: beer Patient Tobacco Use Status: Current someday Tobacco user Tobacco use type: Cigarette Cigarettes Per Day: 10 Years Smoked: 40 Smoked in Last 30 Days: Yes Patient Interested in Nicotine Replacement: Yes Patient Given Instructions on How to Stop Smoking: Yes Date Education Initiated: 08/08/24 Second Hand Smoke Exposure: No Use of substances other than those prescribed or required for medical reasons: No Substance Use Type: Marijuana and Painkillers Currently Displaying Signs/Symptoms of Drug Intoxication Withdrawal: No Have you been hit, kicked, punched, or otherwise hurt by someone within the past year? If so, by whom?: No Do you feel safe in your current relationship?: No Is there a partner from a previous relationship who is making you feel unsafe now?: No Are you made to feel afraid or neglected: No Advance Directives: Yes Advance Directives on File: Yes Advance Directives Date on File: 11/22/21 Do you have a plan to hurt others: No Plan Recently lost weight without trying: No Nutrition Risks: No Nutritional Risk Poor oral hygiene: No service: No Current occupational status: disabled Meds Allergies Allergy/AdvReac Type Severity Reaction Status Date / Time No Known Allergies Allergy Verified 08/07/24 14:18 Active Medications: Current Medications Heparin Sodium (Porcine) (Heparin Sodium,Porcine 5,000 Unit/Ml Vial) 5,000 unit SUBCUT Q8H STACY Norepinephrine Bitartrate (Levophed) 8 mg in 250 mls @ 0 mls/hr IVCONT .Q0M STACY; Protocol Last Titration: 08/07/24 22:37 Dose: 0.11 mcg/kg/min, 26.2 mls/hr Home Medications ?Medication ?Instructions ?Recorded ?Confirmed ?Last Taken ?Type amiodarone 200 mg tablet 1 tab PO DAILY 04/11/20 08/08/24 08/07/24 09:00 History atorvastatin 40 mg tablet 1 tab PO DAILY 04/11/20 08/08/24 08/07/24 09:00 History clopidogrel 75 mg tablet 1 tab PO DAILY 04/11/20 08/08/24 08/07/24 09:00 History spironolactone 25 mg tablet See Rx Instructions .Route .COMPLEX 04/11/20 08/08/24 08/07/24 09:00 History dapagliflozin propanediol 10 mg 10 mg PO DAILY 01/03/24 08/08/24 08/07/24 09:00 History tablet (Farxiga) hydroxyzine HCl 25 mg tablet 25 mg PO DAILY 01/03/24 08/08/24 08/07/24 09:00 History tamsulosin 0.4 mg capsule 0.4 mg PO DAILY 01/03/24 08/08/24 08/07/24 09:00 History torsemide 20 mg tablet 40 mg PO BID 01/03/24 08/08/24 08/07/24 09:00 History gabapentin 800 mg tablet 800 mg PO BEDTIME 08/07/24 08/08/24 Unknown History mexiletine 150 mg capsule 150 mg PO BID 08/07/24 08/08/24 08/07/24 09:00 History sacubitril 49 mg-valsartan 51 mg 1 tab PO BID 08/07/24 08/08/24 08/07/24 09:00 History tablet (Entresto) trazodone 100 mg tablet 100 mg PO BEDTIME 08/07/24 08/08/24 Unknown History allopurinol 100 mg tablet 200 mg PO DAILY 08/08/24 08/08/24 08/07/24 09:00 History carvedilol 3.125 mg tablet 3.125 mg PO BID 08/08/24 08/08/24 08/07/24 09:00 History hydroxyzine HCl 25 mg tablet 50 mg PO BEDTIME 08/08/24 08/08/24 Unknown History ipratropium bromide 17 2 puff inhalation QID PRN 08/08/24 08/08/24 Unknown History mcg/actuation HFA aerosol inhaler Shortness Of Breath Or Wheezing (Atrovent HFA) metolazone 2.5 mg tablet 2.5 mg PO DAILY PRN weight gain > 08/08/24 08/08/24 Unknown History 300 lbs Physical Exam Vital Signs: Vital Signs: Last Vital Signs Temp 97.4 F 08/07/24 21:48 Pulse 61 08/07/24 22:45 Resp 13 08/07/24 22:45 BP 115/43 L 08/07/24 22:45 Pulse Ox 95 08/07/24 22:45 O2 Del Method Room Air 08/07/24 22:45 BMI result Body Mass Index 43.9 ?General:? Alert oriented x3 no acute distress.? Speaking full sentences.? Speech is well articulated, thought process is coherent.? Following all commands. ?HEENT:? Head is normocephalic, atraumatic, pupils equal round reactive to light accommodation bilaterally.? Extraocular movements appear intact.? Buccal mucosa is dry, Neck is supple without lymphadenopathy. ?Cardiac:? Sinus fátima. Clear S1-S2, no murmurs rubs or gallops. BLE 2+ Edema ?Pulmonary:? Clear to auscultation, no wheezes, rales or rhonchi. ?Abdomen:? ?Abdomen soft, non-tender, non-distended. Normal bowel sounds. No pulsatile mass. No hepatosplenomegaly. ?Musculoskeletal:? Moving all 4 extremities upon request a major joints, there is no crepitus or tenderness.? The strength is 5/5 bilaterally and throughout all 4 extremities.? Gait not assessed at this point. ?Neurologic:? cranial nerves 2-12 are grossly intact.? No focal deficits noted.Motor strength as above.?? ?Skin:? BLE Very dry. No ulcers. Vascular:? 2+ pulses upper and lower extremities distally.? Results Labs 08/08/24 04:52 08/08/24 04:52 Labs: Laboratory Results - last 24 hr 08/07/24 08/07/24 08/07/24 15:22 15:23 15:24 MCV 84.5 MCH 28.4 MCHC 33.6 RDW 14.6 Plt Count 156 L MPV 10.8 Immature Gran % (Auto) 1.5 H Neut % (Auto) 73.6 H Lymph % (Auto) 13.8 L [place] % (Auto) 7.7 Eos % (Auto) 3.0 Baso % (Auto) 0.4 Lymph # (Auto) 1.0 L [place] # (Auto) 0.6 Eos # (Auto) 0.2 Baso # (Auto) 0.0 Abs Immat Gran (auto) 0.11 H Absolute Neuts (auto) 5.5 Absolute Nucleated RBC 0.000 Nucleated RBC % (auto) 0.0 Hold Blue Top SEE NOTE Anion Gap 19 Estim Creat Clear Calc 16.9 Estimated GFR 11 Random Glucose 119 H Lactic Acid 1.4 Calcium 9.1 Magnesium 1.8 Total Bilirubin 0.4 Direct Bilirubin 0.2 AST 20 ALT 23 Alkaline Phosphatase 89 B-Natriuretic Peptide 43 Total Protein 7.3 Albumin 4.1 Urine Color Urine Appearance Urine pH Ur Specific [place] Urine Protein Urine Glucose (UA) Urine Ketones Urine Blood Urine Nitrite Ur Leukocyte Esterase Ur Random Sodium Urine Creatinine Influenza Type A (PCR) NEGATIVE Influenza Type B (PCR) NEGATIVE RSV RNA Qual (PCR) NEGATIVE SARS-CoV-2 RNA (RT-PCR) NEGATIVE 08/07/24 08/07/24 17:52 20:29 MCV MCH MCHC RDW Plt Count MPV Immature Gran % (Auto) Neut % (Auto) Lymph % (Auto) [place] % (Auto) Eos % (Auto) Baso % (Auto) Lymph # (Auto) [place] # (Auto) Eos # (Auto) Baso # (Auto) Abs Immat Gran (auto) Absolute Neuts (auto) Absolute Nucleated RBC Nucleated RBC % (auto) Hold Blue Top Anion Gap Estim Creat Clear Calc Estimated GFR Random Glucose Lactic Acid Calcium Magnesium Total Bilirubin Direct Bilirubin AST ALT Alkaline Phosphatase B-Natriuretic Peptide Total Protein Albumin Urine Color Yellow Urine Appearance Clear Urine pH 5.5 Ur Specific [place] 1.010 Urine Protein Negative Urine Glucose (UA) 250 H Urine Ketones Negative Urine Blood Negative Urine Nitrite Negative Ur Leukocyte Esterase Negative Ur Random Sodium 48.0 Urine Creatinine 38.96 Influenza Type A (PCR) Influenza Type B (PCR) RSV RNA Qual (PCR) SARS-CoV-2 RNA (RT-PCR) Imaging Radiologist's Impressions: Impressions Chest X-Ray 08/07/24 14:45 IMPRESSION: Cardiomegaly. No acute cardiopulmonary abnormality. Electronically signed by: Ney Parker MD 08/07/2024 03:17 PM EDT RP Assessment and Plan (1) Acute hypotension: Status: Acute (2) Acute dehydration: Status: Acute (3) Acute diarrhea: Status: Acute (4) Acute renal failure: Qualifiers: Acute renal failure type: unspecified Qualified Code(s): N17.9 - Acute kidney failure, unspecified Status: Acute Plan Plan: Neuro:? No acute issues.?? Cardiac:? Hypotension:? no evidence of severe sepsis,? white count and lactic are within normal limit.? This is likely due to dehydration from diarrhea and diuretics. ? Wean down vasopressors as tolerated.? Pulmonary: ?No acute issues Renal:?Acute renal failure- nonoliguric, ? baseline creatinine seems to be about 1.17 to 1.3, ? creatinine today is 5.42. Received 3 L in the emergency department. ? JONATHAN is related to diarrhea and diuretics. Will continue to monitor? renal indices and urine output closely.? Endo: ? ? no acute issues GI:?? ?Acute diarrhea:? patient reports x1 week of diarrhea. ? CT of the abdomen only showed mild bilateral hydroureteronephrosis.? Viral vs bacterial.? Received Flagyl and ceftriaxone emergency department. GI panel is pending.? We will continue antibiotics until GI panel was back.? ID: ?See GI plan Heme/Onc:? No acute issues. Psych:? Patient reports frequent ETOH consumption. Denies previous alcohol withdrawal. Will monitor and initiate phenobarb protocol if needed? Miscellaneous:? No acute issues. Prophylaxis:? sub cut heparin,? Diet:? ? Cardiac? CODE STATUS: FULL CODE? Critical care time: x 60 min?
[2024-08-08] VITALS (32 sets, daily range): BP systolic 89–135; BP diastolic 44–82; PULSE 53–94; RESP 12–22; TEMP 36.1–36.9; O2SAT 64–95; BMI 43.9
[2024-08-08 00:08] LABS: Albumin Level 4.5 g/dL (3.5-5.0); Anion Gap 21 (12-20); Blood Urea Nitrogen 102 mg/dL (9-16); Calcium 8.9 mg/dL (8.4-10.2); Carbon Dioxide 20 mmol/L (22-29); Chloride 99 mmol/L (96-108); Creatinine Clr Calc Pharmacy 21.8; Estimated Glomerular Filt Rate 14; Glucose Random 126 mg/dL (60-115); Magnesium 1.7 mg/dL (1.6-2.6); Sodium 136 mmol/L (135-145)
[2024-08-08] MEDS: Heparin Sodium,Porcine 5,000 UNIT/ML VIAL 5000 UNIT SUBCUT ×4 (00:37→21:16)
[2024-08-08] MEDS: 0.9 % Sodium Chloride Flush 3 ML SYRINGE IVFLUSH ×3 (01:16→15:54)
[2024-08-08] MEDS: metroNIDAZOLE/NS 500 MG/100 ML PIGGYBACK 100 MG IV ×2 (03:46→15:29)
--- NOTE | 2024-08-08 03:51 | PC.ADMIT ---
at 0010-(08-08-24) pt was admit from ed for vasopressor support d/t refractory hypotension. his lab work revealed JONATHAN. pt was at the pain management clinic today and was found to be hypotensive and transferred to ed . pt states that he has had dizziness and lightheadedness over the past several days. he also states that he experienced 4-5 days of diarrhea. pt states that he takes his b/p at home and noticed low b/p over the last several days. pt states that he was admitted to [facility] in apr 2024 for edema of his legs and fluid issues . pt states that he underwent a cabg x4 approximately 20 years ago and has an internal defibrillator. pt states that he injured his left hip 1 year ago and seeks pain management at the clinic. pt is somewhat vague about the pharmacy that he uses and the medications which he takes. pt states that he has been depressed about his family and life. he will starting psychological counseling at the end of the month. he states that i would never do anything to hurt myself . pt lives alone in a duplex. his son lives next door. pt states that he does not use any home medical services. he states that he smoke about 1/2 ppd for 40+ years. he states that he drinks a few beers with vodka about 4 days per week. pt states that he has never experienced any alcohol withdrawal issues. pt has c/o of itchimg and a rash over the past several months. he has 1+ edema and venous stasis color changes of his lower extremities. pt states that he suffers from JORDAN and uses a CPAP machine at night. breath sounds are diminished throughout. heart tones s1s2. levophed infusion at 0.11mcg/kg/min titrated as per hemodynamic guidelines. ecg displays sb-sr with bbb. an infrequent unifocal pvcs noted. abdomen obese and soft. pt states that he has not has BM since arrival and had taken antidiarrheal medication earlier in the day. denies nausea/vomiting. pt states that he has no difficulty with urination. pt as noted previously chronic left hip pain and would utilize cane or walker for mobility.
[2024-08-08 05:01] LABS: VBG Base Excess 0.6 mmol/L; VBG HCO3 24 mmol/L (22-26); VBG pCO2 38 mmHg; VBG pH 7.42 (7.32-7.43); VBG pO2 51 mmHg
[2024-08-08 05:08] LABS: MANUAL DIFF FLAG NO
[2024-08-08 05:11] LABS: Basophils Percent Auto 0.4 % (0-2); Eosinophils Absolute Auto 0.3 X10*3/uL (0.0-0.4); Eosinophils Percent Auto 3.4 % (0-4); Hematocrit 38.8 % (42.0-52.0); Imm Gran Abs Auto 0.11 X10*3/uL (0.00-0.03); Imm Gran Pct Auto 1.4 % (0.0-0.4); Lymphocytes Percent Auto 13.2 % (20-40); Mean Corpuscular HGB Conc 33.5 g/dl (31.0-36.0); Mean Corpuscular Hemoglobin 28.4 pg (27.0-33.0); Mean Corpuscular Volume 84.9 fL (80.0-98.0); Mean Platelet Volume 10.6 fL (9.4-12.4); Monocytes Absolute Auto 0.7 X10*3/uL (0.1-1.2); Monocytes Percent Auto 9.2 % (2-11); Neutrophils Absolute Auto 5.5 x10*3/uL (2.0-8.3); Neutrophils Percent Auto 72.4 % (45-73); Platelet Count 167 X10*3/uL (160-400); Red Blood Count 4.57 X10*6/uL (4.60-5.80); Red Cell Distribution Width 14.7 % (11.0-16.0); White Blood Count 7.6 X10*3/uL (4.8-10.8)
[2024-08-08 05:39] LABS: Alanine Aminotransferase 23 U/L (0-40); Albumin Level 4.5 g/dL (3.5-5.0); Alkaline Phosphatase 93 U/L (39-117); Anion Gap 19 (12-20); Aspartate Amino Transferase 20 U/L (5-37); Bilirubin Total 0.5 mg/dL (0.0-1.0); Blood Urea Nitrogen 99 mg/dL (9-16); Calcium 9.4 mg/dL (8.4-10.2); Carbon Dioxide 23 mmol/L (22-29); Chloride 100 mmol/L (96-108); Creatinine Clr Calc Pharmacy 22.7; Estimated Glomerular Filt Rate 14; Glucose Random 159 mg/dL (60-115); Magnesium 1.7 mg/dL (1.6-2.6); Phosphorus 4.9 mg/dL (2.7-4.5); Potassium 3.6 mmol/L (3.3-5.1); Sodium 138 mmol/L (135-145); Total Protein 7.8 g/dL (6.5-8.0)
[2024-08-08 06:13] LABS: Venous Blood Gas Refer to POC result
--- NOTE | 2024-08-08 10:55 | PHA.MEDREC ---
Addendum entered by Sanjeev Louis 08/08/24 11:30: reviewed Original Note: Pharmacy Consult ? Medication Reconciliation Pharmacy has completed the medication reconciliation. Spoke to pt to confirm meds. Per pt, not taking Lexapro, meloxicam, methocarbamol, simvastatin. Ran out of atorvastatin about a week ago. Takes allopurinol 200 mg daily. Takes spironolactone 25 mg daily, but takes 50 mg x2 days when taking metolazone for additional diuresis. Takes torsemide 40 mg BID.
[2024-08-08 11:26] LABS: CDiff Gene PCR NEGATIVE (Negative)
--- NOTE | 2024-08-08 11:31 | MHC.CM.PN ---
Pt gives permission to speak with his dtr/HCP Angel re: d/c planning needs. pt resides with his dog, has no services and uses a CPAP at night. He drives and is independent with care needs. Dtr is not certain on pt's PCP - CM to inquire w/pt once he is more conversant. HCP and IMM on file/in chart. CM to follow for finalization of d/c planning needs. Family to transport.
--- NOTE | 2024-08-08 11:32 | PM.CCPN ---
Subjective Subjective Date of Service: 08/08/24 Interval History: 68-year-old gentleman with underlying history of CVA, CAD status post CABG, diabetes mellitus, congestive heart failure, chronic pain, alcohol abuse admitted on 08/07/2024 approximately one-week history urea and hypotension with poor response to IV fluid resuscitation requiring initiation of pressor support. Patient also was noted to acute kidney injury with elevated renal indices and hyponatremia. He was treated with empiric antibiotics. His C diff PCR was negative. GI panel is pending. Overnight still with bouts of diarrhea and continues to require pressor support. Critical Care Time (minutes): 45 Physical Exam Vital Signs: Vital Signs: Last Vital Signs Temp 97.3 F 08/08/24 08:00 Pulse 59 08/08/24 11:30 Resp 17 08/08/24 11:00 BP 98/51 L 08/08/24 11:30 Pulse Ox 94 08/08/24 11:00 O2 Del Method Room Air 08/08/24 11:00 O2 Flow Rate 2 08/08/24 06:00 BMI result Body Mass Index 43.9 Const: General: no acute distress, alert and awake Nutritional Appearance: obese Eyes: Sclerae: sclerae normal EOM: EOMs intact bilaterally Neck: Neck: Yes no lymphadenopathy, Yes trachea midline and Yes supple Resp: Effort & Inspection: normal respiratory effort and no respiratory distress Auscultation: clear to auscultation bilaterally Cardio: Rate: regular rate Rhythm: regular rhythm Heart sounds: no gallops, no murmurs and no rubs GI: Palpation (GI): Soft to palpation and Other GI palpation findings present ( Nontender) Auscultation: normal bowel sounds Extrem: General: No clubbing, No cyanosis and Yes edema (Trace bilateral) Objective Data Labs 08/08/24 04:52 08/08/24 04:52 Labs: Laboratory Results - last 24 hr 08/07/24 08/07/24 08/07/24 15:22 15:23 15:24 WBC 7.4 RBC 4.19 L Hgb 11.9 L Hct 35.4 L MCV 84.5 MCH 28.4 MCHC 33.6 RDW 14.6 Plt Count 156 L MPV 10.8 Immature Gran % (Auto) 1.5 H Neut % (Auto) 73.6 H Lymph % (Auto) 13.8 L [place] % (Auto) 7.7 Eos % (Auto) 3.0 Baso % (Auto) 0.4 Lymph # (Auto) 1.0 L [place] # (Auto) 0.6 Eos # (Auto) 0.2 Baso # (Auto) 0.0 Abs Immat Gran (auto) 0.11 H Absolute Neuts (auto) 5.5 Absolute Nucleated RBC 0.000 Nucleated RBC % (auto) 0.0 Hold Purple Top Hold Blue Top SEE NOTE VBG pH VBG pCO2 VBG pO2 VBG HCO3 VBG O2 Saturation VBG Base Excess Sodium 131 L Potassium 4.4 Chloride 93 L Carbon Dioxide 23 Anion Gap 19 BUN 117 H Creatinine 5.42 H* Estim Creat Clear Calc 16.9 Estimated GFR 11 Random Glucose 119 H Lactic Acid 1.4 Calcium 9.1 Phosphorus Magnesium 1.8 Total Bilirubin 0.4 Direct Bilirubin 0.2 AST 20 ALT 23 Alkaline Phosphatase 89 Troponin I High Sens 13.3 B-Natriuretic Peptide 43 Total Protein 7.3 Albumin 4.1 Urine Color Urine Appearance Urine pH Ur Specific [place] Urine Protein Urine Glucose (UA) Urine Ketones Urine Blood Urine Nitrite Ur Leukocyte Esterase Ur Random Sodium Urine Creatinine C. difficile Tox B Gene Influenza Type A (PCR) NEGATIVE Influenza Type B (PCR) NEGATIVE RSV RNA Qual (PCR) NEGATIVE SARS-CoV-2 RNA (RT-PCR) NEGATIVE 08/07/24 08/07/24 08/07/24 17:52 20:29 23:31 WBC RBC Hgb Hct MCV MCH MCHC RDW Plt Count MPV Immature Gran % (Auto) Neut % (Auto) Lymph % (Auto) [place] % (Auto) Eos % (Auto) Baso % (Auto) Lymph # (Auto) [place] # (Auto) Eos # (Auto) Baso # (Auto) Abs Immat Gran (auto) Absolute Neuts (auto) Absolute Nucleated RBC Nucleated RBC % (auto) Hold Purple Top Hold Blue Top VBG pH VBG pCO2 VBG pO2 VBG HCO3 VBG O2 Saturation VBG Base Excess Sodium 136 Potassium 4.0 Chloride 99 Carbon Dioxide 20 L Anion Gap 21 H BUN 102 H Creatinine 4.34 H* Estim Creat Clear Calc 21.8 Estimated GFR 14 Random Glucose 126 H Lactic Acid Calcium 8.9 Phosphorus 5.0 H Magnesium 1.7 Total Bilirubin Direct Bilirubin AST ALT Alkaline Phosphatase Troponin I High Sens B-Natriuretic Peptide Total Protein Albumin 4.5 Urine Color Yellow Urine Appearance Clear Urine pH 5.5 Ur Specific [place] 1.010 Urine Protein Negative Urine Glucose (UA) 250 H Urine Ketones Negative Urine Blood Negative Urine Nitrite Negative Ur Leukocyte Esterase Negative Ur Random Sodium 48.0 Urine Creatinine 38.96 C. difficile Tox B Gene Influenza Type A (PCR) Influenza Type B (PCR) RSV RNA Qual (PCR) SARS-CoV-2 RNA (RT-PCR) 08/08/24 08/08/24 08/08/24 04:52 04:57 10:00 WBC 7.6 RBC 4.57 L Hgb 13.0 L Hct 38.8 L MCV 84.9 MCH 28.4 MCHC 33.5 RDW 14.7 Plt Count 167 MPV 10.6 Immature Gran % (Auto) 1.4 H Neut % (Auto) 72.4 Lymph % (Auto) 13.2 L [place] % (Auto) 9.2 Eos % (Auto) 3.4 Baso % (Auto) 0.4 Lymph # (Auto) 1.0 L [place] # (Auto) 0.7 Eos # (Auto) 0.3 Baso # (Auto) 0.0 Abs Immat Gran (auto) 0.11 H Absolute Neuts (auto) 5.5 Absolute Nucleated RBC 0.000 Nucleated RBC % (auto) 0.0 Hold Purple Top Hold Blue Top VBG pH 7.42 VBG pCO2 38 VBG pO2 51 VBG HCO3 24 VBG O2 Saturation 70.0 VBG Base Excess 0.6 Sodium 138 Potassium 3.6 Chloride 100 Carbon Dioxide 23 Anion Gap 19 BUN 99 H Creatinine 4.17 H* Estim Creat Clear Calc 22.7 Estimated GFR 14 Random Glucose 159 H Lactic Acid Calcium 9.4 Phosphorus 4.9 H Magnesium 1.7 Total Bilirubin 0.5 Direct Bilirubin AST 20 ALT 23 Alkaline Phosphatase 93 Troponin I High Sens B-Natriuretic Peptide Total Protein 7.8 Albumin 4.5 Urine Color Urine Appearance Urine pH Ur Specific [place] Urine Protein Urine Glucose (UA) Urine Ketones Urine Blood Urine Nitrite Ur Leukocyte Esterase Ur Random Sodium Urine Creatinine C. difficile Tox B Gene NEGATIVE Influenza Type A (PCR) Influenza Type B (PCR) RSV RNA Qual (PCR) SARS-CoV-2 RNA (RT-PCR) 08/08/24 23:31 WBC RBC Hgb Hct MCV MCH MCHC RDW Plt Count MPV Immature Gran % (Auto) Neut % (Auto) Lymph % (Auto) [place] % (Auto) Eos % (Auto) Baso % (Auto) Lymph # (Auto) [place] # (Auto) Eos # (Auto) Baso # (Auto) Abs Immat Gran (auto) Absolute Neuts (auto) Absolute Nucleated RBC Nucleated RBC % (auto) Hold Purple Top SEE NOTE Hold Blue Top VBG pH VBG pCO2 VBG pO2 VBG HCO3 VBG O2 Saturation VBG Base Excess Sodium Potassium Chloride Carbon Dioxide Anion Gap BUN Creatinine Estim Creat Clear Calc Estimated GFR Random Glucose Lactic Acid Calcium Phosphorus Magnesium Total Bilirubin Direct Bilirubin AST ALT Alkaline Phosphatase Troponin I High Sens B-Natriuretic Peptide Total Protein Albumin Urine Color Urine Appearance Urine pH Ur Specific [place] Urine Protein Urine Glucose (UA) Urine Ketones Urine Blood Urine Nitrite Ur Leukocyte Esterase Ur Random Sodium Urine Creatinine C. difficile Tox B Gene Influenza Type A (PCR) Influenza Type B (PCR) RSV RNA Qual (PCR) SARS-CoV-2 RNA (RT-PCR) Progress Note: A&P Assessment and plan (1) Hypotension: Status: Acute (2) Acute diarrhea: Status: Acute (3) Acute renal failure: Status: Acute (4) CHF (congestive heart failure): Status: Acute Plan Assessment: 68-year-old gentleman with underlying multiple medical issues admitted with acute diarrhea and hypotension with poor response to IV fluid resuscitation requiring pressor support. Plan: Neuro: No acute issues. Cardiac: Continue to titrate off pressor support as tolerated. Underlying history of chronic congestive heart failure on diuretic therapy and current artery disease status post CABG. Pulmonary: No acute issues. Renal: Acute renal failure and hyponatremia, improving. Non oliguric. Likely secondary to intravascular volume depletion. Continue to monitor renal indices and urine output. Endo: No acute issues. Underlying borderline diabetes mellitus. Continue sliding scale insulin protocol. GI: Acute diarrhea, C diff is negative. GI panel is pending. Continues on empiric antibiotics and loperamide. ID: No acute issues Heme/Onc: No acute issues. Psych: No acute issues. Miscellaneous: No acute issues. Prophylaxis: Heparin Diet: Regular Critical care time spent: 45 minutes Quality Stroke Does the patient have a stroke diagnosis?: No VTE Prior VTE?: No VTE Risk Level:: Medical - moderate - high VTE Device Contraindication: N/A - Device Ordered VTE Drug Contraindication: N/A - Med Ordered
[2024-08-08 13:22] LABS: Adenovirus F 40/41 Not Detected (Not Detect.); Astrovirus Not Detected (Not Detect.); Campylobacter Not Detected (Not Detect.); Cryptosporidium Not Detected (Not Detect.); Cyclospora cayetanensis Not Detected (Not Detect.); E. coli EAEC Not Detected (Not Detect.); E. coli EPEC Not Detected (Not Detect.); E. coli ETEC Not Detected (Not Detect.); E. coli STEC Not Detected (Not Detect.); Entamoeba histolytica Not Detected (Not Detect.); Giardia lamblia Not Detected (Not Detect.); Norovirus GI/GII Not Detected (Not Detect.); Plesiomonas shigelloides Not Detected (Not Detect.); Rotavirus A Not Detected (Not Detect.); Salmonella Not Detected (Not Detect.); Sapovirus Not Detected (Not Detect.); Shigella sp./EIEC Not Detected (Not Detect.); Vibrio Not Detected (Not Detect.); Vibrio Cholerae Not Detected (Not Detect.); Yersinia enterocolitica Not Detected (Not Detect.)
[2024-08-08 17:07] LABS: Glucose, Whole Blood 122 mg/dL (60-115)
--- NOTE | 2024-08-08 19:13 | PC.NURSE ---
assumed care 0700 08/08/24. handed off 1900 08/08/24. patient alert and orientedx4. independent with repositioning. able to make needs known. call light in reach. bed alarm on. patient stood and pivot with stand by assist 2x to commode today with RN and Tech. Levophed titrated per JUL. Paused at 11:30 and blood pressures holding within goal for remainder of shift. patient is calm and alert with no needs or questions at time of handoff.
[2024-08-08 20:51] LABS: Glucose, Whole Blood 155 mg/dL (60-115)
[2024-08-08] MEDS: diphenhydrAMINE HCL 50 MG/ML VIAL 25 MG IVPUSH (21:16)
[2024-08-08] MEDS: Miconazole 2 % Extra Thick Cr 56.7 Gm Tube 1 APPL TOPICAL (21:16)
[2024-08-08] MEDS: cefTRIAXone sodium 1 GM VIAL IVPUSH (21:16)
[2024-08-08] MEDS: Calamine/Zinc Oxide LOTION 177 ML BOTTLE 1 APPL TOPICAL (21:17)
[2024-08-08] MEDS: Insulin Lispro 100 UNIT/ML 3 ML VIAL SUBCUT (21:17)
[2024-08-08] MEDS: Lactated Ringers 1,000 ML 999 ML IV (23:30)
[2024-08-09] VITALS (34 sets, daily range): BP systolic 77–133; BP diastolic 31–71; PULSE 58–95; RESP 10–26; TEMP 36.3–36.7; O2SAT 92–98; BMI 43.9
[2024-08-09] MEDS: Norepinephrine Bitartrate/D5W 8 MG/250 ML PLAST..BAG 11.91 MG IVCONT (01:15)
--- NOTE | 2024-08-09 01:25 | PM.EVENT ---
Documented by User: Micheal Corbin NP 08/09/24 01:27 Event Note Date of Service: 08/09/24 Event Note: Patient requiring vasoporessors again, no evidence of infection. Vitals stable, afibrile Time Spent With Patient Time: Total time managing care of this patient today ____ minutes. Documented by User: Jesus Martinez MD 08/09/24 11:43 Event Note Date of Service: 08/09/24
--- NOTE | 2024-08-09 01:45 | HE.NUR.EV ---
Status Change: Pt hypotensive, SBP 70-80s, MAP 50-60s Immediate Actions Taken: Given 1L LR IV bolus x1 Notifications: OG Corbin Further Monitoring and Treatment: Persistently hypotensive despite IV bolus. Levophed gtt re-started and titrated per JUL to maintain MAP > 65. NIBP q5min x30min, then q15min thereafter. Pt A&Ox4, denies any s/s.
[2024-08-09] MEDS: metroNIDAZOLE/NS 500 MG/100 ML PIGGYBACK 100 MG IV ×2 (02:58→15:21)
[2024-08-09 05:05] LABS: MANUAL DIFF FLAG NO
[2024-08-09 05:08] LABS: Basophils Percent Auto 0.3 % (0-2); Eosinophils Absolute Auto 0.4 X10*3/uL (0.0-0.4); Eosinophils Percent Auto 4.9 % (0-4); Hemoglobin 12.8 g/dl (14.0-18.0); Imm Gran Pct Auto 1.1 % (0.0-0.4); Lymphocytes Absolute Auto 1.1 X10*3/uL (1.2-4.9); Lymphocytes Percent Auto 12.6 % (20-40); Mean Corpuscular HGB Conc 33.7 g/dl (31.0-36.0); Mean Corpuscular Hemoglobin 28.8 pg (27.0-33.0); Mean Corpuscular Volume 85.6 fL (80.0-98.0); Mean Platelet Volume 10.6 fL (9.4-12.4); Monocytes Percent Auto 11.5 % (2-11); Neutrophils Absolute Auto 6.1 x10*3/uL (2.0-8.3); Neutrophils Percent Auto 69.6 % (45-73); Platelet Count 167 X10*3/uL (160-400); Red Blood Count 4.44 X10*6/uL (4.60-5.80); Red Cell Distribution Width 14.7 % (11.0-16.0); White Blood Count 8.8 X10*3/uL (4.8-10.8)
[2024-08-09 05:43] LABS: Alanine Aminotransferase 19 U/L (0-40); Albumin Level 4.2 g/dL (3.5-5.0); Anion Gap 16 (12-20); Aspartate Amino Transferase 22 U/L (5-37); Bilirubin Total 0.4 mg/dL (0.0-1.0); Blood Urea Nitrogen 71 mg/dL (9-16); Calcium 9.7 mg/dL (8.4-10.2); Carbon Dioxide 24 mmol/L (22-29); Chloride 103 mmol/L (96-108); Creatinine Clr Calc Pharmacy 36.6; Estimated Glomerular Filt Rate 25; Glucose Random 122 mg/dL (60-115); Magnesium 1.7 mg/dL (1.6-2.6); Phosphorus 3.6 mg/dL (2.7-4.5); Sodium 139 mmol/L (135-145); Total Protein 7.3 g/dL (6.5-8.0)
[2024-08-09 07:37] LABS: Glucose, Whole Blood 129 mg/dL (60-115)
[2024-08-09] MEDS: Heparin Sodium,Porcine 5,000 UNIT/ML VIAL 5000 UNIT SUBCUT ×3 (07:45→22:36)
[2024-08-09] MEDS: 0.9 % Sodium Chloride Flush 3 ML SYRINGE IVFLUSH ×2 (07:47→15:29)
[2024-08-09] MEDS: Calamine/Zinc Oxide LOTION 177 ML BOTTLE 1 APPL TOPICAL (08:52)
[2024-08-09] MEDS: Miconazole 2 % Extra Thick Cr 56.7 Gm Tube 1 APPL TOPICAL ×2 (08:55→20:25)
[2024-08-09 10:50] LABS: Alkaline Phosphatase 82 U/L (39-117)
[2024-08-09] MEDS: Midodrine HCl 10 MG TABLET PO ×3 (10:52→20:24)
[2024-08-09] MEDS: Lactated Ringers 1,000 ML 999 ML IV ×2 (10:52→12:06)
[2024-08-09 11:42] LABS: Glucose, Whole Blood 146 mg/dL (60-115)
--- NOTE | 2024-08-09 11:43 | P.PNCC_ITS ---
Subjective Subjective Date of Service: 08/09/24 Interval History: 68-year-old gentleman with underlying history of CVA, CAD status post CABG, diabetes mellitus, congestive heart failure, chronic pain, alcohol abuse admitted on 08/07/2024 approximately one-week history urea and hypotension with poor response to IV fluid resuscitation requiring initiation of pressor support. Patient also was noted to acute kidney injury with elevated renal indices and hyponatremia. He was treated with empiric antibiotics. His C diff PCR was negative. GI panel is pending. No events overnight. Titrated off pressor support. Critical Care Time (minutes): 0 Physical Exam 2 Vital Signs: Vital Signs: Last Vital Signs Temp 97.6 F 08/09/24 08:00 Pulse 60 08/09/24 11:36 Resp 15 08/09/24 09:00 BP 124/55 L 08/09/24 11:36 Pulse Ox 92 08/09/24 09:00 O2 Del Method Room Air 08/09/24 09:00 O2 Flow Rate 1 08/09/24 06:00 BMI result Body Mass Index 43.9 Const: General: no acute distress, alert and awake Nutritional Appearance: obese Eyes: Sclerae: sclerae normal EOM: EOMs intact bilaterally Neck: Neck: Yes no lymphadenopathy, Yes trachea midline and Yes supple Resp: Effort & Inspection: normal respiratory effort and no respiratory distress Auscultation: clear to auscultation bilaterally Cardio: Rate: regular rate Rhythm: regular rhythm Heart sounds: no gallops, no murmurs and no rubs GI: Palpation (GI): Soft to palpation and Other GI palpation findings present ( Nontender) Auscultation: normal bowel sounds Extrem: General: Yes no pedal edema, No clubbing and No cyanosis Objective Data Labs 08/09/24 04:54 08/09/24 04:54 Labs: Laboratory Results - last 24 hr 08/08/24 08/08/24 08/08/24 10:00 17:04 20:47 WBC RBC Hgb Hct MCV MCH MCHC RDW Plt Count MPV Immature Gran % (Auto) Neut % (Auto) Lymph % (Auto) [place] % (Auto) Eos % (Auto) Baso % (Auto) Lymph # (Auto) [place] # (Auto) Eos # (Auto) Baso # (Auto) Abs Immat Gran (auto) Absolute Neuts (auto) Absolute Nucleated RBC Nucleated RBC % (auto) Sodium Potassium Chloride Carbon Dioxide Anion Gap BUN Creatinine Estim Creat Clear Calc Estimated GFR POC Glucose 122 H 155 H Random Glucose Calcium Phosphorus Magnesium Total Bilirubin AST ALT Alkaline Phosphatase Total Protein Albumin Stl C. cayetanensis PCR Not Detected Stool Rotavirus A PCR Not Detected Stl Adenov F 40/ PCR Not Detected Stool Astrovirus (PCR) Not Detected Stool Campylobacter PCR Not Detected Stool Cryptosporidium PCR Not Detected Stl Sh Tox Pr E STEC PCR Not Detected Stool E coli O157 PCR Not applicable Stl Enterotoxigenic E PCR Not Detected Stool EPEC (PCR) Not Detected Stool EAEC (PCR) Not Detected Stl E. histolytica PCR Not Detected Stool Giardia Lamblia PCR Not Detected Stl P. shigelloides PCR Not Detected Stool Salmonella PCR Not Detected Stool Sapovirus (PCR) Not Detected Stl Shigella/EIEC PCR Not Detected St Y.enterocolitica PCR Not Detected Stool Vibrio (PCR) Not Detected Stl Vibrio cholerae PCR Not Detected Stl Norovirus GI/GII PCR Not Detected 08/09/24 08/09/24 08/09/24 04:54 07:33 11:38 WBC 8.8 RBC 4.44 L Hgb 12.8 L Hct 38.0 L MCV 85.6 MCH 28.8 MCHC 33.7 RDW 14.7 Plt Count 167 MPV 10.6 Immature Gran % (Auto) 1.1 H Neut % (Auto) 69.6 Lymph % (Auto) 12.6 L [place] % (Auto) 11.5 H Eos % (Auto) 4.9 H Baso % (Auto) 0.3 Lymph # (Auto) 1.1 L [place] # (Auto) 1.0 Eos # (Auto) 0.4 Baso # (Auto) 0.0 Abs Immat Gran (auto) 0.10 H Absolute Neuts (auto) 6.1 Absolute Nucleated RBC 0.000 Nucleated RBC % (auto) 0.0 Sodium 139 Potassium 4.0 Chloride 103 Carbon Dioxide 24 Anion Gap 16 BUN 71 H Creatinine 2.59 H Estim Creat Clear Calc 36.6 Estimated GFR 25 POC Glucose 129 H 146 H Random Glucose 122 H Calcium 9.7 Phosphorus 3.6 Magnesium 1.7 Total Bilirubin 0.4 AST 22 ALT 19 Alkaline Phosphatase 82 Total Protein 7.3 Albumin 4.2 Stl C. cayetanensis PCR Stool Rotavirus A PCR Stl Adenov F 40/41 PCR Stool Astrovirus (PCR) Stool Campylobacter PCR Stool Cryptosporidium PCR Stl Sh Tox Pr E STEC PCR Stool E coli O157 PCR Stl Enterotoxigenic E PCR Stool EPEC (PCR) Stool EAEC (PCR) Stl E. histolytica PCR Stool Giardia Lamblia PCR Stl P. shigelloides PCR Stool Salmonella PCR Stool Sapovirus (PCR) Stl Shigella/EIEC PCR St Y.enterocolitica PCR Stool Vibrio (PCR) Stl Vibrio cholerae PCR Stl Norovirus GI/GII PCR Microbiology Microbiology Results: Microbiology 08/07/24 15:23 Blood - Venous Blood Culture - Preliminary No growth after 24 hours. 08/07/24 15:22 Blood - Venous Blood Culture - Preliminary No growth after 24 hours. Progress Note: A&P Assessment and plan (1) Hypotension: Status: Acute (2) CHF (congestive heart failure): Status: Acute (3) Acute diarrhea: Status: Acute (4) Acute renal failure: Status: Acute Plan Assessment: 68-year-old gentleman with underlying multiple medical issues admitted with acute diarrhea and hypotension with poor response to IV fluid resuscitation requiring pressor support. Plan: Neuro: No acute issues. Cardiac: Titrated off pressor support Underlying history of chronic congestive heart failure on diuretic therapy and current artery disease status post CABG. Pulmonary: No acute issues. Renal: Acute renal failure and hyponatremia, improving. Non oliguric. Likely secondary to intravascular volume depletion. Continue to monitor renal indices and urine output. Endo: No acute issues. Underlying borderline diabetes mellitus. Continue sliding scale insulin protocol. GI: Acute diarrhea, C diff and GI panel are negative. Continues on empiric antibiotics and loperamide. ID: No acute issues Heme/Onc: No acute issues. Psych: No acute issues. Miscellaneous: No acute issues. Prophylaxis: Heparin Diet: Regular Quality Stroke Does the patient have a stroke diagnosis?: No VTE Prior VTE?: No VTE Risk Level:: Medical - moderate - high VTE Device Contraindication: N/A - Device Ordered VTE Drug Contraindication: N/A - Med Ordered
--- NOTE | 2024-08-09 16:02 | PM.EVENT ---
Event Note Date of Service: 08/09/24 Event Note: This is a 68-year-old gentleman with underlying history of CVA, CAD status post CABG, diabetes mellitus, congestive heart failure, chronic pain, alcohol abuse admitted on 08/07/2024 approximately one-week history of diarrhea and hypotension with poor response to IV fluid resuscitation requiring initiation of pressor support. Patient also was noted to acute kidney injury with elevated renal indices and hyponatremia. He was treated with empiric antibiotics. JONATHAN Due to volume depletion and hypotension from diarrhea Creatinine 5.42 on admission, trending down to 2.[address] scan also with b/l hydroureteronephrosis with distended urinary bladder and prostatomegaly causing possible bladder outlet obstruction - consider chopra if renal function doesn't improve Hold Entresto, torsemide, metolazone, spironolactone Follow BMP Diarrhea C diff, GI panel negative Resolved Was treated with empiric antibiotics, Blood cultures negative, ceftriaxone/Flagyl DC b/l hydroureteronephrosis/obstructive uropathy consider chopra On Flomax at baseline, when BP is stable resume Hypotension Thought to be due to volume depletion from diarrhea Weaned off of pressors Started on midodrine, wean midodrine DM SSI, follow POCs PVD s/p CABG Continue Plavix Statin on hold for JONATHAN Carvedilol on hold for hypotension paroxysmal VT/VF with ICD Continue mixeletine resume amiodorone HFrEF/ischemic cardiomyopathy echo from 2019 with EF 25-30% Hold diuretics Hold Farxiga Gout Hold allopurinol due to renal dysfunction Morbid obesity BMI 43.9 Weight loss encouraged Time Spent With Patient Time: Total time managing care of this patient today ____ minutes.
[2024-08-09 16:19] LABS: Glucose, Whole Blood 103 mg/dL (60-115)
--- NOTE | 2024-08-09 17:51 | PC.NURSE ---
assumed care of patient 0700 on 08/09/24. patient A+Ox4, call light in reach, able to voice needs, all questions answered. patients blood pressures labile throughout morning. titration to pressors made per MD verbal. pressors paused and DC'd by MD. MD stated systolic above 90 is acceptable. patient remained systolic above 90 up until transport off unit. RN to RN repot given prior to transport, no further questions from receiving RN. patient sent upstairs in hospital bed... accompanied upstairs by [facility] staff member, and 3 family members with telemetry pack, on room air, asymptomatic.
[2024-08-09 20:13] LABS: Glucose, Whole Blood 118 mg/dL (60-115)
[2024-08-09] MEDS: diphenhydrAMINE HCL 25 MG CAPSULE PO (21:39)
[2024-08-10] VITALS (8 sets, daily range): BP systolic 112–144; BP diastolic 55–88; PULSE 62–75; RESP 14–18; TEMP 36.1–36.6; O2SAT 96–98
[2024-08-10] MEDS: Heparin Sodium,Porcine 5,000 UNIT/ML VIAL 5000 UNIT SUBCUT ×2 (06:04→15:42)
[2024-08-10 06:27] LABS: MANUAL DIFF FLAG NO
[2024-08-10 06:45] LABS: Albumin Level 4.1 g/dL (3.5-5.0); Anion Gap 14 (12-20); Blood Urea Nitrogen 40 mg/dL (9-16); Calcium 9.9 mg/dL (8.4-10.2); Carbon Dioxide 25 mmol/L (22-29); Chloride 107 mmol/L (96-108); Creatinine Clr Calc Pharmacy 53.6; Estimated Glomerular Filt Rate 38; Glucose Random 109 mg/dL (60-115); Magnesium 1.8 mg/dL (1.6-2.6); Phosphorus 3.2 mg/dL (2.7-4.5); Potassium 4.3 mmol/L (3.3-5.1); Sodium 142 mmol/L (135-145)
[2024-08-10 07:00] LABS: Basophils Percent Auto 0.4 % (0-2); Eosinophils Absolute Auto 0.3 X10*3/uL (0.0-0.4); Hemoglobin 12.8 g/dl (14.0-18.0); Imm Gran Abs Auto 0.08 X10*3/uL (0.00-0.03); Imm Gran Pct Auto 1.1 % (0.0-0.4); Lymphocytes Absolute Auto 0.8 X10*3/uL (1.2-4.9); Lymphocytes Percent Auto 11.2 % (20-40); Mean Corpuscular Hemoglobin 27.9 pg (27.0-33.0); Mean Corpuscular Volume 87.3 fL (80.0-98.0); Mean Platelet Volume 10.9 fL (9.4-12.4); Monocytes Absolute Auto 0.7 X10*3/uL (0.1-1.2); Monocytes Percent Auto 9.8 % (2-11); Neutrophils Absolute Auto 5.2 x10*3/uL (2.0-8.3); Neutrophils Percent Auto 73.5 % (45-73); Platelet Count 168 X10*3/uL (160-400); Red Blood Count 4.58 X10*6/uL (4.60-5.80); Red Cell Distribution Width 14.7 % (11.0-16.0); White Blood Count 7.1 X10*3/uL (4.8-10.8)
[2024-08-10 07:10] LABS: Glucose, Whole Blood 111 mg/dL (60-115)
[2024-08-10] MEDS: Midodrine HCl 10 MG TABLET PO ×3 (10:22→20:36)
[2024-08-10] MEDS: Amiodarone HCL 200 MG TABLET PO (10:22)
[2024-08-10] MEDS: Clopidogrel Bisulfate 75 MG TABLET PO (10:22)
[2024-08-10] MEDS: 0.9 % Sodium Chloride Flush 3 ML SYRINGE IVFLUSH ×2 (10:24→15:43)
[2024-08-10] MEDS: Calamine/Zinc Oxide LOTION 177 ML BOTTLE 1 APPL TOPICAL ×2 (10:25→20:36)
[2024-08-10] MEDS: Miconazole 2 % Extra Thick Cr 56.7 Gm Tube 1 APPL TOPICAL ×2 (10:25→20:49)
[2024-08-10 11:22] LABS: Glucose, Whole Blood 114 mg/dL (60-115)
--- NOTE | 2024-08-10 13:25 | HO.PM.IMPN ---
Subjective Subjective Date of Service: 08/10/24 Review of Systems Follow up JONATHAN feeling better no n,v,d Physical Exam Vital Signs: Vital Signs: Last Vital Signs Temp 97.8 F 08/10/24 11:05 Pulse 62 08/10/24 11:05 Resp 15 08/10/24 11:05 BP 115/55 L 08/10/24 11:05 Pulse Ox 97 08/10/24 11:05 O2 Del Method BiPAP 08/10/24 11:05 O2 Flow Rate 1 08/09/24 06:00 BMI result Body Mass Index 43.9 Appearing in no acute distress lung sounds are clear to auscultation heart regular rate rhythm, clear S1, S2 positive bowel sounds, abdomen is soft, nontender neuro patient is alert x3, no focal deficits Objective Data Active Medications Albuterol Sulfate (Albuterol Sulfate 90 Mcg 8 Gm Inhaler) 1 puff INHALE QID PRN PRN Reason: shortness of breath or wheezing Amiodarone HCl (Amiodarone Hcl 200 Mg Tablet) 200 mg PO DAILY [facility] Last Admin: 08/10/24 10:22 Dose: 200 mg Documented By: BLADIMIR Calamine (Calamine/Zinc Oxide Lotion 177 Ml Bottle) 1 appl TOPICAL Q3H PRN; Protocol PRN Reason: Rash Last Admin: 08/10/24 10:25 Dose: 1 appl Documented By: BLADIMIR Clopidogrel Bisulfate (Clopidogrel Bisulfate 75 Mg Tablet) 75 mg PO DAILY [facility] Last Admin: 08/10/24 10:22 Dose: 75 mg Documented By: BLADIMIR Heparin Sodium (Porcine) (Heparin Sodium,Porcine 5,000 Unit/Ml Vial) 5,000 unit SUBCUT Q8H [facility] Last Admin: 08/10/24 06:04 Dose: 5,000 unit Documented By: EULALIO Insulin Human Lispro (Insulin Lispro 100 Unit/Ml 3 Ml Vial) 0 unit SUBCUT QIDACHS [facility]; Protocol Last Admin: 08/10/24 11:48 Dose: Not Given Documented By: BLADIMIR Non-Admin Reason: No Insulin Coverage Ipratropium [place] (Ipratropium [place] 1 Puff/17 Mcg Inhaler) 2 puff INHALE QID PRN PRN Reason: Shortness Of Breath Or Wheezing Loperamide HCl (Loperamide Hcl 2 Mg Capsule) 4 mg PO Q6H PRN PRN Reason: Diarrhea Mexiletine HCl (Mexiletine Hcl 150 Mg Capsule) 150 mg PO Q12H [facility] Last Admin: 08/10/24 10:23 Dose: 150 mg Documented By: BLADIMIR Miconazole Nitrate (Miconazole 2 % Extra Thick Cr 56.7 Gm Tube) 1 appl TOPICAL BID STACY; Protocol Last Admin: 08/10/24 10:25 Dose: 1 appl Documented By: BLADIMIR Midodrine (Midodrine Hcl 10 Mg Tablet) 10 mg PO TID [facility] Last Admin: 08/10/24 10:22 Dose: 10 mg Documented By: BLADIMIR Sodium Chloride (0.9 % Sodium Chloride Flush 3 Ml Syringe) 3 ml IVFLUSH QSHIFT [facility] Last Admin: 08/10/24 10:24 Dose: 3 ml Documented By: BLADIMIR Labs 08/10/24 06:14 08/10/24 06:14 Labs: Laboratory Results - last 24 hr 08/09/24 08/09/24 08/10/24 16:16 20:10 06:14 MCV 87.3 MCH 27.9 MCHC 32.0 RDW 14.7 Plt Count 168 MPV 10.9 Immature Gran % (Auto) 1.1 H Neut % (Auto) 73.5 H Lymph % (Auto) 11.2 L Martin % (Auto) 9.8 Eos % (Auto) 4.0 Baso % (Auto) 0.4 Lymph # (Auto) 0.8 L Martin # (Auto) 0.7 Eos # (Auto) 0.3 Baso # (Auto) 0.0 Abs Immat Gran (auto) 0.08 H Absolute Neuts (auto) 5.2 Absolute Nucleated RBC 0.000 Nucleated RBC % (auto) 0.0 Anion Gap 14 Estim Creat Clear Calc 53.6 Estimated GFR 38 POC Glucose 103 118 H Random Glucose 109 Calcium 9.9 Phosphorus 3.2 Magnesium 1.8 Albumin 4.1 08/10/24 08/10/24 07:06 11:19 MCV MCH MCHC RDW Plt Count MPV Immature Gran % (Auto) Neut % (Auto) Lymph % (Auto) Martin % (Auto) Eos % (Auto) Baso % (Auto) Lymph # (Auto) Martin # (Auto) Eos # (Auto) Baso # (Auto) Abs Immat Gran (auto) Absolute Neuts (auto) Absolute Nucleated RBC Nucleated RBC % (auto) Anion Gap Estim Creat Clear Calc Estimated GFR POC Glucose 111 114 Random Glucose Calcium Phosphorus Magnesium Albumin Microbiology Microbiology Results: Microbiology 08/07/24 15:23 Blood Culture - Preliminary Blood - Venous No growth after 48 hours. 08/07/24 15:22 Blood Culture - Preliminary Blood - Venous No growth after 48 hours. Assessment and Plan (1) Hypotension: Status: Acute Plan This is a 68-year-old gentleman with underlying history of CVA, CAD status post CABG, diabetes mellitus, congestive heart failure, chronic pain, alcohol abuse admitted on 08/07/2024 approximately one-week history of diarrhea and hypotension with poor response to IV fluid resuscitation requiring initiation of pressor support. Patient also was noted to acute kidney injury with elevated renal indices and hyponatremia. He was treated with empiric antibiotics. JONATHAN Due to volume depletion and hypotension from diarrhea Creatinine 5.42 on admission, trending down to 1.[address] scan also with b/l hydroureteronephrosis with distended urinary bladder and prostatomegaly causing possible bladder outlet obstruction - consider chopra if renal function doesn't improve Hold Entresto, torsemide, metolazone, spironolactone Follow BMP Diarrhea C diff, GI panel negative Resolved Was treated with empiric antibiotics, Blood cultures negative, ceftriaxone/Flagyl DC b/l hydroureteronephrosis/obstructive uropathy consider chopra On Flomax at baseline, when BP is stable resume Hypotension Thought to be due to volume depletion from diarrhea Weaned off of pressors Started on midodrine, wean DM SSI, follow POCs PVD s/p CABG Continue Plavix Statin on hold for JONATHAN Carvedilol on hold for hypotension paroxysmal VT/VF with ICD Continue mixeletine resume amiodorone HFrEF/ischemic cardiomyopathy echo from 2019 with EF 25-30% Hold diuretics Hold Farxiga Gout Hold allopurinol due to renal dysfunction Morbid obesity BMI 43.9 Weight loss encouraged Quality Stroke Does the patient have a stroke diagnosis?: No VTE Prior VTE?: No VTE Risk Level:: Medical - moderate - high VTE Device Contraindication: N/A - Device Ordered VTE Drug Contraindication: N/A - Med Ordered
--- NOTE | 2024-08-10 14:52 | MHC.CM.PN ---
Per rounds, pt is not ready for DC, he requires continued treatment for Acute renal failure and Hypotension. CM to follow for DC needs.
[2024-08-10 16:30] LABS: Glucose, Whole Blood 95 mg/dL (60-115)
[2024-08-10 20:19] LABS: Glucose, Whole Blood 111 mg/dL (60-115)
[2024-08-10] MEDS: diphenhydrAMINE HCL 25 MG CAPSULE PO (21:01)
[2024-08-11 00:56] VITALS: RESP 18
[2024-08-11 03:13] VITALS: BP 119/56; PULSE 65; RESP 18; TEMP 36.3; O2SAT 94
[2024-08-11] MEDS: Heparin Sodium,Porcine 5,000 UNIT/ML VIAL 5000 UNIT SUBCUT ×2 (06:24)
[2024-08-11 07:03] VITALS: BP 141/62; PULSE 62; RESP 17; TEMP 36.1; O2SAT 95
[2024-08-11 07:11] LABS: Glucose, Whole Blood 105 mg/dL (60-115)
[2024-08-11] MEDS: Clopidogrel Bisulfate 75 MG TABLET PO (08:53)
[2024-08-11] MEDS: Amiodarone HCL 200 MG TABLET PO (08:53)
[2024-08-11] MEDS: 0.9 % Sodium Chloride Flush 3 ML SYRINGE IVFLUSH ×2 (08:54)
--- NOTE | 2024-08-11 09:50 | HO.WOUND ---
Wound Consult: Initial 68yr old male? admitted to [facility] on 08/07/24 - See progress notes and H&P for detailed history.? Wound consult placed for Right Leg.? Patient agreeable to assessment and photo documentation.? Patient reports he has had a open wound in the past but no injury currently. Bilateral lower legs assessed noted for +pp, slight edema and chronic hyperpigmentation to the gaiter area - no open wounds noted no topical interventions needed at this time. While at bedside patient reports he did not like the odor of the miconazole cream and was refusing application - pannus and groin assessed for MASD - red mirrored tissue with yeast odor although no satellite lesions were noted there was odor of yeast present. Direct care nurse notified to notify provider of patient request for powder Nystatin to treat MASD and fungal dermatitis.
[2024-08-11] MEDS: Midodrine HCl 10 MG TABLET PO (09:51)
--- NOTE | 2024-08-11 11:01 | PM.DS ---
DS: Providers Provider Date of Service: 08/11/24 Date of admission: 08/07/24 22:54 Date of discharge: 08/11/24 Primary care physician: Unknown Physician Consults: 08/08/24 02:00 Consult to Wound Care Routine Reason for consultation: HX OF STASIS ULCER RIGHT LEG Has provider been notified: No DS: Diagnosis Discharge Diagnosis (1) Hypotension: Status: Acute DS: Summary Hospital Course Hospital Course: The patient is a 68-year-old? male? With a past medical history of hypertension, coronary artery disease s/p CABG, congestive heart failure ( on torsemide and spironolactone), hyperlipidemia? and? CVA who presented to the emergency department from the pain clinic with hypotension and dizziness. Patient reported abdominal pain,? significant diarrhea x 1 week.? He has been taking all his medications including his diuretics and blood pressure medications.??On arrival to the emergency department patient systolic blood pressures 70s, temp 95.9 degrees, satting 95-898% on room air. Laboratory data was significant for sodium 131, chloride 93, BUN 117, and creatinine 5.42 Urine negative for UTI, IMAGING:?Abdominal CT:? mild bilateral? hydroureteronephrosis ED COURSE:?Patient received a total of 3 L bolus, metronidazole 500 mg, and ceftriaxone 1 g and started on Levophed 68-year-old man treated for JONATHAN secondary to volume depletion from diarrhea with hypotension. Initial creatinine was 5.42 on admission and trended down to 1.77 after IV fluids. C diff and GI panel was negative. Diarrhea resolved. Initially treated with the empiric antibiotics, blood cultures remained negative. Patient did not require Carvajal catheter, treated with Flomax at baseline. Patient did initially go to the ICU for hypotension due to the volume depletion, weaned off pressors and transferred to medical floor. Started on midodrine. Patient should follow up with his primary care provider closely to manage medications for blood pressure. DM2. Continue home medications PVD s/p CABG. Continue Plavix, statin paroxysmal VT/VF with ICD. Continue mixeletine and amiodorone HFrEF/ischemic cardiomyopathy, echo from 2020 with EF 25-30% Gout. Hold allopurinol due to renal dysfunction Morbid obesity. BMI 43.9. Weight loss encouraged Time Attestation Discharge Coordination Time (in mins): 42 Quality: Safe Use of Opioids Does Pt have an Active Cancer Diagnosis on the Problem List?: No Quality: Stroke Does the patient have a stroke diagnosis?: No Physical Exam Vital Signs: Vital Signs: Last Vital Signs Temp 96.9 F 08/11/24 07:03 Pulse 62 08/11/24 07:03 Resp 17 08/11/24 07:03 BP 141/62 H 08/11/24 07:03 Pulse Ox 95 08/11/24 07:03 O2 Del Method BiPAP 08/11/24 03:13 O2 Flow Rate 1 08/09/24 06:00 BMI result Body Mass Index 43.9 Appearing in no acute distress head is normocephalic atraumatic eyes pupils are PERRLA sclera is anicteric mouth throat mucous membranes are intact and moist neck is supple no lymphadenopathy, no JVD noted lung sounds are clear to auscultation heart regular rate rhythm, clear S1, S2 positive bowel sounds, abdomen is soft, nontender neuro patient is alert x3, no focal deficits DS: Data Data Completed and Pending Labs on day of discharge: Laboratory Results - last 24 hr 08/10/24 08/10/24 08/10/24 11:19 16:23 20:16 POC Glucose 114 95 111 08/11/24 07:07 POC Glucose 105 Preliminary micro results at discharge 08/07/24 15:23 Blood Culture - Preliminary Blood - Venous No growth after 48 hours. 08/07/24 15:22 Blood Culture - Preliminary Blood - Venous No growth after 48 hours. Discharge Plan Discharge Anticipated Discharge Date/Time: 08/11/24 10:43 Patient Disposition: Home Health Service Discharge Diagnosis: Acute renal failure Diarrhea Alcohol abuse Referrals: Seda CHONG [Outside] - 1 Week Discharge Medications: Continued atorvastatin 40 mg tablet 1 tab PO DAILY amiodarone 200 mg tablet 1 tab PO DAILY clopidogrel 75 mg tablet 1 tab PO DAILY albuterol sulfate 90 mcg/actuation HFA aerosol inhaler 1 inh inhalation QID PRN (Reason: shortness of breath or wheezing) Qty: 8.5 0RF allopurinol 100 mg tablet 200 mg PO DAILY hydroxyzine HCl 25 mg tablet 50 mg PO BEDTIME metolazone 2.5 mg tablet 2.5 mg PO DAILY PRN (Reason: weight gain > 300 lbs) Atrovent HFA 17 mcg/actuation HFA aerosol inhaler 2 puff inhalation QID PRN (Reason: Shortness Of Breath Or Wheezing) hydroxyzine HCl 25 mg tablet 25 mg PO DAILY dapagliflozin propanediol [Farxiga] 10 mg tablet 10 mg PO DAILY tamsulosin 0.4 mg capsule 0.4 mg PO DAILY mexiletine 150 mg capsule 150 mg PO BID Entresto 49-51 mg tablet 1 tab PO BID trazodone 100 mg tablet 100 mg PO BEDTIME gabapentin 800 mg tablet 800 mg PO BEDTIME Discontinued spironolactone 25 mg tablet See Rx Instructions .ROUTE .COMPLEX Rx Instructions: 25 mg daily; WHEN TAKING METOLAZONE, TAKE 2 tabs (50 mg) x 2 days then resume normal 25 mg daily thereafter. carvedilol 3.125 mg tablet 3.125 mg PO BID torsemide 20 mg tablet 40 mg PO BID Discharge Orders: Discharge Order (Routine); Ordered 08/11/24 Ordered By: Aye Seals Diet: Advance to usual diet Activity on Discharge: As tolerated Stand Alone Forms: Patient Portal Discharge page Print Language: Senegalese Care Plan Goals: Avoid drinking alcohol Drink plenty of fluids Health Concerns: Acute renal failure Diarrhea Alcohol abuse Plan of Treatment: Follow-up with primary care provider to assess the need to restart spironolactone and torsemide to avoid acute kidney injury and hypotension Take all medications as prescribed Assessment: See discharge summary Discharge Date/Time: 08/11/24 11:23
--- NOTE | 2024-08-11 11:29 | W.MHC.F2F ---
Service Date Service Date: 08/11/24 Encounter Date of encounter: 08/11/24 Reasons for Services Signs and symptoms assessed: JONATHAN, diarrhea Reason for physical therapy: home safety and mobility Homebound: Leaving the home is medically contraindicated at this time without the asist of a device and/or another person due th the listed conditions above and below. Reason homebound: unsteady gait / fall risk and weakness related to hospital stay Certification: Based on the above findings, I certify that this patient is confined to the home and needs intermittent senior care care, physical therapy and/or speech therapy, or continues to need occupational therapy. The patient is under my care, and I have initiated the establishment of the plan of care. The patient will be followed by a physician who will periodically review the plan of care. Time Spent With Patient Time: Total time managing care of this patient today ____ minutes.
--- NOTE | 2024-08-11 11:29 | MHC.CM.PN ---
Second IMM 08/11/24, Pt has been medically cleared for DC, he will go home via private transport, and have home care services from [facility].
== END 2024-08-11 11:23 | disposition home health service (06) | DRG 315 ==
LOC: HO.ED 22:14 → HO.EDOVER 23:02 → HO.ICU 23:21 → HO.IMC 08-09 16:41
PROVIDERS: Emergency Medicine; Internal Medicine Pulmonary Disease; Physician Assistant; Physician Assistant Medical; Admitting Provider Registered Nurse Community Health; Emergency Provider Emergency Medicine; PCP Family Medicine; Visit Provider Nurse Practitioner Acute Care
DX: I95.9 Hypotension, unspecified (principal); E87.1 Hypo-osmolality and hyponatremia; N17.9 Acute kidney failure, unspecified; N13.8 Other obstructive and reflux uropathy; I50.22 Chronic systolic (congestive) heart failure; Z68.41 Body mass index [BMI] 40.0-44.9, adult; I47.20 Ventricular tachycardia, unspecified; E86.0 Dehydration; F17.210 Nicotine dependence, cigarettes, uncomplicated; Z71.6 Tobacco abuse counseling; M10.9 Gout, unspecified; N40.1 Benign prostatic hyperplasia with lower urinary tract symptoms; E66.01 Morbid (severe) obesity due to excess calories; Z71.3 Dietary counseling and surveillance; R19.7 Diarrhea, unspecified; E11.9 Type 2 diabetes mellitus without complications; I25.5 Ischemic cardiomyopathy; I25.10 Atherosclerotic heart disease of native coronary artery without angina pectoris; Z95.1 Presence of aortocoronary bypass graft; E78.5 Hyperlipidemia, unspecified; Z20.822 Contact with and (suspected) exposure to COVID-19; Z95.0 Presence of cardiac pacemaker; Z86.73 Personal history of transient ischemic attack (TIA), and cerebral infarction without residual deficits; Z79.02 Long term (current) use of antithrombotics/antiplatelets; Z79.899 Other long term (current) drug therapy
CPT/HCPCS: 0241U; 36415; 71045; 74176; 80048; 80053; 80076; 81003; 82040; 82570; 82803; 82947; 83605; 83735; 83880; 84100; 84300; 84484; 85025; 87040; 87493; 87507; 93005; 94660; 97162; 99212; 99285; J0696; J1200; J1644; J1836; J7120; P9047

== ENCOUNTER → 2024-08-07 14:16 | Outpatient (BNV) | payer MEDICARE, SELFPAY | PROVIDERS: Emergency Provider Emergency Medicine; Visit Provider Internal Medicine Cardiovascular Disease | DX: R00.1 Bradycardia, unspecified (principal); I95.9 Hypotension, unspecified; R94.31 Abnormal electrocardiogram [ECG] [EKG] | CPT/HCPCS: 93010 ==

== ENCOUNTER → 2024-08-07 14:17 | Outpatient (BNV) | payer MEDICARE, SELFPAY | PROVIDERS: Emergency Provider Emergency Medicine; Visit Provider Radiology Diagnostic Radiology | DX: N17.9 Acute kidney failure, unspecified (principal); I51.7 Cardiomegaly | CPT/HCPCS: 71045; 74176 ==

== ENCOUNTER → 2024-08-07 22:54 | Outpatient (BNV) | payer MEDICARE, SELFPAY | PROVIDERS: Admitting Provider Registered Nurse Community Health; Emergency Provider Emergency Medicine; Visit Provider Internal Medicine Pulmonary Disease | DX: I95.9 Hypotension, unspecified (principal); I50.9 Heart failure, unspecified; R19.7 Diarrhea, unspecified; N17.9 Acute kidney failure, unspecified | CPT/HCPCS: 99233; 99291 ==

== ENCOUNTER → 2024-08-07 22:54 | Outpatient (BNV) | payer MEDICARE, SELFPAY | PROVIDERS: Admitting Provider Registered Nurse Community Health; Emergency Provider Emergency Medicine; Visit Provider Physician Assistant Medical | DX: I95.9 Hypotension, unspecified (principal) | CPT/HCPCS: 99232; 99239; 99499 ==

== ENCOUNTER → 2024-08-07 22:54 | Outpatient (BNV) | payer MEDICARE, SELFPAY | PROVIDERS: Admitting Provider Registered Nurse Community Health; Emergency Provider Emergency Medicine; Visit Provider Registered Nurse Community Health | DX: N17.9 Acute kidney failure, unspecified (principal); I95.9 Hypotension, unspecified; E86.0 Dehydration; R19.7 Diarrhea, unspecified | CPT/HCPCS: 99291; 99499 ==

== ENCOUNTER 2024-09-17 07:05 | Outpatient (REF) | payer MEDICARE, SELFPAY ==
--- NOTE | ~2024-09-17 | FL_ITS ---
EXAMINATION: XR FLUOROSCOPY WITH IMAGES CLINICAL INFORMATION: Left hip pain management procedure. COMPARISON: None available. TECHNIQUE: Fluoroscopy provided to: Dr. Garcia Fluoroscopy time: 0.2 minutes DAP: 0.0809 mGycm2 Images: 1 FINDINGS: Solitary spot image left hip during pain management injection. Please refer to the full operative report for details. FL/FL guidance in treatment room IMPRESSION: Fluoroscopic guidance. Electronically signed by: Omar Thompson MD 09/18/2024 10:12 AM EDT
--- OUTSIDE RECORDS SUMMARY | 2024-09-17 07:07 | XMS_ITS | Encounter Summary ---
Author Organization [facility] Address [address] [place] [address] Care Team Providers Care Scarfer Name Role Phone Ney Banuelos DO Primary Care Provider Marina vailable Reason for Visit * Reason Onset Date Comments DME Request 10/31/2021 Encounter Details Date Type Department Care Team Description 10/31/2021 Telephone Pulmonology - [place] [address] [facility] [address] [place] [address] Eloisa Chino [facility] [address] [place] [address] DME Request Social History Tobacco Use Types Packs/Day Years [...] on file documented as of this encounter Miscellaneous Notes * Telephone Encounter - Alicja Covington - 10/31/2021 1:30 PM EDT Done faxed order to [employer] for supplies documented in this encounter Plan of Treatment Not on file documented as of this encounter Visit Diagnoses Not on filedocumented in this encounter Care Teams Scarfer Relationship Specialty Start Date End Date Ney Banuelos DO PCP - General Internal Medicine 10/04/20 documented as of this encounter
--- OUTSIDE RECORDS SUMMARY | 2024-09-17 07:07 | XMS_ITS | Encounter Summary ---
Author Organization [facility] Address [address] [place] [address] Care Team Providers Care Bread Jockey Name Role Phone Joseph Crowell MD Primary Care Provider Unava ilable Ney Banuelos DO Primary Care Provider Marina vailable Reason for Visit * Reason Onset Date Comments APPOINTMENT 07/08/2019 Encounter Details Date Type Department Care Team Description 07/08/2019 Telephone Walk In [address] [address] Eloisa Chino FNP [address] [place] [address] APPOINTMENT Social History Tobacco Use Types Packs/Day Years [...] encounter Miscellaneous Notes * Telephone Encounter - RON Hughes - 07/08/2019 5:02 PM EST Please move up August appt to earlier time if another slot opens. documented in this encounter Plan of Treatment Not on file documented as of this encounter Visit Diagnoses Not on filedocumented in this encounter Care Teams Bread Jockey Relationship Specialty Start Date End Date Joseph Crowell MD PCP - General Internal Medicine 06/09/19 10/03/20 Ney Banuelos DO PCP - General Internal Medicine 10/04/20 documented as of this encounter
--- OUTSIDE RECORDS SUMMARY | 2024-09-17 07:07 | XMS_ITS | Clinical Summary ---
Author Organization [facility] Address [address] [place] [address] Care Team Providers Care Senior Executive Compensation Analyst Name Role Phone Soheila Millan MD Primary Care Provider [phone] Allergies No known active allergies Medications Medication [...] years ago Coronary artery disease invo lving redding coronary artery of redding heart without angina pectoris 03/18/2012 Overview: Overview: 2007 Inferior [place], CABG x 4 Type 2 diabetes mellitus [...] <88% for 5% or more of study) [facility] Polysomnogram treatment study. Date [...] age to complete this topic Care Teams Senior Executive Compensation Analyst Relationship Specialty Start Date End Date Soheila Millan MD [address] [place] [address] PCP - General Family Medicine 08/14/22
--- OUTSIDE RECORDS SUMMARY | 2024-09-17 07:07 | XMS_ITS | Clinical Summary ---
Author Organization [facility] Address [address] [place] [address] Care Team Providers Care Repairer Switchgear Name Role Phone Soheila Millan MD Primary [...] Problems Problem Noted Date Diagnosed Date Melanoma ([facility] V24, CMS/[facility] V28) 12/09/2019 Overview (08/01/2023): Stage IIb/IIc melanoma, following with Dr. Osorio Carlin, seen 11/19/2019. Bottom of foot, s/p removal years ago Colitis 11/19/2019 Malignant melanoma of left l ower extremity including hip (CMS/HCC V24, CMS/HCC V28) 11/19/2019 AICD (automatic cardioverter/defibrillator) pres ent 07/29/2019 CKD (chronic kidney disease) stage 3, GFR 30-59 ml/min ([facility] V24, [facility] V28) 06/18/2019 CAD (coronary artery disease) 03/18/2012 Overview (08/01/2023): 2007 Inferior [place], CABG x 4 Overview: 2007 Inferior [place], CABG x 4 DM (diabetes mellitus), type 2 with renal complications ([facility] V24, [facility] V28) 03/18/2012 Type 2 diabetes mellitus wit h diabetic nephropathy, without long-term current use of insulin ([facility] V24, [facility] V28) 03/18/2012 Ischemic cardiomyopathy 03/18/2012 Overview (08/01/2023): Last echo 10/2010 LVEF 25-30% (new from 2008), increased biatrial pressures, moderate biatrial enlargement Overview: Last echo 10/2010 LVEF 25-30% (new from 2008), increased biatrial pressures, moderate biatrial enlargement Obstructive sleep apnea 03/18/2012 Overview (08/01/2023): [facility] Home Sleep Apnea Test: Date 06/16/2019; Wt 240#; BMI 35; TIMI 19, AI 5; HI 14; Unclassified apneas 0; Obstructive apneas 18; Central apneas 2; Mixed apneas 0; hypopneas 59; average oxygen saturation 92% (lowest 86% without saturations <88% for 5% or more of study) [facility] Polysomnogram treatment study. Date [...] by 2019 home sleep apnea test. Overview: [facility] Home Sleep Apnea Test: Date 06/16/2019; Wt 240#; BMI 35; TIMI 19, AI 5; HI 14; Unclassified apneas 0; Obstructive apneas 18; Central apneas 2; Mixed apneas 0; hypopneas 59; average oxygen saturation 92% (lowest 86% without saturations <88% for 5% or more of study) [facility] Polysomnogram treatment study. Date [...] home sleep apnea test. Severe obesity (BMI 35.0-39. 9) with comorbidity ([facility] V24, [facility] V28) 03/18/2012 Immunizations Name Administration Dates Next Due [employer]Natanael Ulien SARS-CoV-2 COVID -19, vector-nr, [id number], preservative free 08/24/2020 [employer] SARS-CoV-2 COVID-19, mRNA, LNP-S, preservative free 04/19/2021 Surgical History Surgery Date Site/Laterality Comments OTHER SURGICAL HISTORY PROCEDURE:quadruple bypass OTHER SURGICAL HISTORY PROCEDURE:DEFIBRILATOR;COMMENT:PUT IN Medical History Medical History Date Comments Melanoma of heel ([facility] V24, [facility] V28) DX:Melanoma of heel (HCC) Diabetes ([facility] V24, [facility] V28) DX:Diabetes (HCC) Hypertension DX:Hypertension Family History Medical History Relation [...] Description 11/02/2024 2:00 PM EDT Office Visit [facility] Hematology Oncology [address] [place] [id number] Osorio-Saravanan Carlin MD [address] [place] [phone] Health Maintenance Due Date Last Done Comments Diabetes: Annual Foot Exam 1964 Diabetes: Annual Retina Eye Exam 1964 DTaP,Tdap,and Td Vaccines (1 - Tdap) 1973 Hepatitis A Vaccines (1 of 2 - Risk 2-dose series) 1973 Pneumococcal Vaccine: 50+ Years (1 of 2 - PCV) 1973 Zoster Vaccines (1 of 2) 1973 RSV Immunization Adult Patients (1 - Risk 60-74 years 1-dose series) [...] Contro l Test (HGBA1C) 05/02/2022 COVID-19 Vaccine (2023-2 5 season) 2024 04/19/2021, 08/24/2020 Influenza Vaccine (Season Ended) 2025 HIB Vaccines Aged Out No longer eligi [...] age to complete this topic Meningococcal B Vaccine Aged Out No l onger eligible based on patient's age to complete [...] Test (09/28/2019) Annual BMP Blood Test abstracted us Historical Provider HEALTH MAINTENANCE Final Result from Last 3 Months or Most Recently Relevant to Health Maintenance Insurance [employer] MEDICARE Care Teams Repairer Switchgear Relationship Specialty Start Date End Date Soheila Millan MD [address] [place] [phone] PCP - General 08/14/22
--- OUTSIDE RECORDS SUMMARY | 2024-09-17 07:07 | XMS_ITS | Encounter Summary ---
Author Organization [facility] Address [address] [place] [address] Care Team Providers Care Press Feeder Broomcorn Name Role Phone Joseph Crowell MD Primary Care Provider Unava ilable Ney Banuelos DO Primary Care Provider Marina vailable Encounter Details Date Type Department Care Team Description 06/12/2019 Release of Information Medical Records [address] [place] [id number] Abstract, Provider Social History Tobacco Use Types [...] on filedocumented in this encounter Care Teams Press Feeder Broomcorn Relationship Specialty Start Date End Date Joseph Crowell MD PCP - General Internal Medicine 06/09/19 10/03/20 Ney Banuelos DO PCP - General Internal Medicine 10/04/20 documented as of this encounter
== END 2024-09-17 07:06 | disposition home or self-care (01) ==
LOC: CF 07:05
PROVIDERS: Visit Provider Internal Medicine
DX: M25.552 Pain in left hip (principal); M16.12 Unilateral primary osteoarthritis, left hip
CPT/HCPCS: 20610; J2003; J2795; J3301; Q9967

== ENCOUNTER 2024-09-17 10:36 | Outpatient (AMB) | payer MEDICARE, SELFPAY ==
[2024-09-17 10:43] VITALS: BP 104/68; PULSE 63; RESP 16; O2SAT 95
--- NOTE | 2024-09-17 10:43 | MHC.OFFVIS ---
Vital Signs 09/17/24 10:43 09/17/24 11:32 BP 104/68 108/72 Blood Pressure Location Lt brachial Lt brachial Position Sitting Sitting Respiration 16 16 Pulse 63 66 Pulse Source Pulse Oximeter Pulse Oximeter Pulse Oximetry (%) 95 95 Oxygen Delivery Method Room Air Room Air Intake Visit Reasons: Left hip inj w/ fluoro Fire Apparatus Engineer Required: No Allergies No Known Allergies Allergy (Verified 09/17/24 10:43) Medication List - Last Reconciled 09/17/24 by Ijeoma Gaspar LPN albuterol sulfate 90 mcg/actuation 1 inh inhalation QID PRN allopurinol 200 mg PO DAILY amiodarone 1 tab PO DAILY atorvastatin 1 tab PO DAILY clopidogrel 1 tab PO DAILY dapagliflozin propanediol (Farxiga) 10 mg PO DAILY gabapentin 800 mg PO BEDTIME hydroxyzine HCl 50 mg PO BEDTIME hydroxyzine HCl 25 mg PO DAILY ipratropium bromide 17 mcg/actuation (Atrovent HFA) 2 puffs inhalation QID PRN metolazone 2.5 mg PO DAILY PRN mexiletine 150 mg PO BID sacubitril-valsartan 49-51 mg (Entresto) 1 tab PO BID tamsulosin 0.4 mg PO DAILY trazodone 100 mg PO BEDTIME HPI HPI Left hip inj w/ fluoro: Details: Patient presents for scheduled procedure. Denies any recent cough, cold, infection, fever or other significant changes in medical history since last office visit. [facility] Medical History (Updated 08/15/24 @ 00:02 by Miguel Angel Wynne) CHF (congestive heart failure) Coronary artery disease Head injury Alcohol abuse Syncope High cholesterol HTN (hypertension) Borderline diabetes mellitus CVA (cerebral vascular accident) Surgical History Status post coronary artery bypass graft Stented coronary artery H/O heart bypass surgery Social History Household Members: Family Household Members Other:: son lives next door Housing: House Do you presently have visiting nurse or other home services: No Alcohol intake: current Alcohol intake frequency: 3 or more drinks per day Alcohol type: beer Patient Tobacco Use Status: Current someday Tobacco user Tobacco use type: Cigarette Cigarettes Per Day: 10 Years Smoked: 40 Second Hand Smoke Exposure: No Substance Use Type: Marijuana and Painkillers Advance Directives Date on File: 11/22/21 service: No Current occupational status: disabled Physical Exam Vital Signs: Last Vital Signs Pulse 66 09/17/24 11:32 Resp 16 09/17/24 11:32 BP 108/72 09/17/24 11:32 Pulse Ox 95 09/17/24 11:32 Oxygen Delivery Method Room Air 09/17/24 11:32 Office Procedures AMB Joint Injection/Aspiration Joint Injection/Aspiration Primary Site: other (Left hip) Prep: site was prepped using sterile technique Injected: 20 mg of, Kenalog, with 4 mL of (Ropivacaine 0.5%) and in the joint Approach Used: other (Lateral, fluoroscopy guided) Procedure: The patient tolerated the procedure well Coding - Large joint Procedure code (CPT) selection complete Assessment & Plan Assessment & Plan (1) Osteoarthritis of left hip: Code(s): M16.12 - Unilateral primary osteoarthritis, left hip Category: Medical Plan Patient is status post left intra-articular hip injection under fluoroscopy. Patient tolerated procedure well and was discharged home in stable condition with discharge instructions. All questions were answered. We will follow-up via telephone or in clinic to assess response to therapy. A follow-up appointment was made during today's visit. Orders: Orders FL guidance in treatment room Today Janki Yanes APRN, FLOW WORKER M25.552 - Pain in left hip AMB Joint Injection/Aspiration Today Arnold Garcia MD M16.12 - Unilateral primary osteoarthritis, left hip Coding Level of Care Code Procedure Only Diagnoses Osteoarthritis of left hip M16.12 CPT Codes Coding - 44068 Large joint: 93927 - Large joint ([id number])
[2024-09-17 11:32] VITALS: BP 108/72; PULSE 66; RESP 16; O2SAT 95
--- OUTSIDE RECORDS SUMMARY | 2024-09-17 12:09 | XMS_ITS | Encounter Summary ---
Author Organization [facility] Address [address] [place] [address] Care Team Providers Care Stonecutter Name Role Phone Ney Banuelos DO Primary Care Provider Marina vailable Reason for Visit * Reason Onset Date Comments refill request 10/24/2020 Encounter Details Date Type Department Care Team Description 10/24/2020 Refill Medicine/Pediatrics - [address] [phone] Ney Banuelos DO refill request Social History Tobacco Use Types Packs/Day Years [...] file Not on file Not on file COVID-19 Exposure Response Date Recorded In the last month, have you been in contact with someone who was confirmed or suspected to have Coronavirus / COVID-19? No / Unsure 10/19/2020 3:22 PM EDT documented as of this encounter Miscellaneous Notes * Telephone Encounter - Anali Ashraf M.A. - 10/24/2020 9:56 AM EDT Last office visit 10/19/20 Lab Results Component Value Date NA 138 06/22/2020 K 4.0 06/22/2020 CO2 23 06/22/2020 CL 108 06/22/2020 BUN 16 06/22/2020 CREAT 0.97 06/22/2020 GLU 98 06/22/2020 CA 9.2 06/22/2020 GFR > 60 06/22/2020 * Telephone Encounter - Joy Leo - 10/24/2020 9:20 AM EDT Patient would like script to be: E-PRESCRIBED/FAXED TO PHARMACY WHEN WAS THE PATIENT'S LAST APPOINTMENT IN ADULT MEDICINE? 10/19/2020 WHEN WAS THE LAST TIME THE PATIENT SAW THEIR PCP? Same as above Does patient have an upcoming appointment? no (THE MEDICATION REQUESTED IS ON THE MED LIST ABOVE) All of the medications requested were on the CURRENT MEDS list Did you check the Pharmacy information above?: YES Patient wants: 30 -day supply Is this a mail order prescription request ? NO If the refill is from a FAXED refill request what is the RX # listed on the fax? N/A Patients current insurance carrier is: Payor: [facility] / Plan: [facility] MEDICARE COMPLETE $15/$45 [facility] [address] / Product Type: PPO [id number] documented in this encounter Plan of Treatment Not on file documented as of this encounter Visit Diagnoses Diagnosis Ischemic cardiomyopathy Other specified forms of chronic ischemic heart disease documented in this encounter Care Teams Stonecutter Relationship Specialty Start Date End Date Ney Banuelos DO PCP - General Internal Medicine 10/04/20 documented as of this encounter
--- OUTSIDE RECORDS SUMMARY | 2024-09-17 12:09 | XMS_ITS | Encounter Summary ---
Author Organization [facility] Address [address] [place] [address] Care Team Providers Care Reference Data Expert Name Role Phone Joseph Crowell MD Primary Care Provider Unava ilable Ney Banuelos DO Primary Care Provider Marina vailable Encounter Details Date Type Department Care Team Description 11/19/2019 Manager Of Software Development Report Medical Records [address] [place] [address] Saravanan Macias MD Social History Tobacco Use Types Packs/Day [...] on filedocumented in this encounter Care Teams Reference Data Expert Relationship Specialty Start Date End Date Joseph Crowell MD PCP - General Internal Medicine 06/09/19 10/03/20 Ney Banuelos DO PCP - General Internal Medicine 10/04/20 documented as of this encounter
--- OUTSIDE RECORDS SUMMARY | 2024-09-17 12:10 | XMS_ITS | Clinical Summary ---
Author Organization [facility] Address [address] [place] [address] Care Team Providers Care Bag Liner Name Role Phone Ney Banuelos DO Primary Care Provider Marina vailable Allergies No known active allergies Medications Medication Sig Dispensed Refills Start Date End Date Status spironolactone (ALDACTONE) 25 MG tabletIndications: Essential hypertension Take 0.5 Tablets by mouth daily. 15 tablet 2 1 Active furosemide (LASIX) 40 MG tabletIndications: Ischemic cardiomyopathy TAKE 1 TABLET BY MOUTH TWICE DAILY 60 tablet 5 1 Active hydrOXYzine (ATARAX) 25 MG tablet TAKE 1 TABLET BY MOUTH THREE TIMES DAILY NEEDED FOR ANXIETY 90 tablet 0 1 Active sertraline (ZOLOFT) 100 MG tablet TAKE 2 TABLETS BY MOUTH EVERY MORNING 60 tablet 0 1 Active torsemide (DEMADEX) 20 MG tablet Take 60 mg by mouth. 0 2 Active trazodone (DESYREL) 50 MG tablet 0 2 Active ALBUTEROL SULFATE (Ventolin HFA) 108 (90 Base) MCG/ACT Aero Soln Ventolin HFA 90 mcg/actuation aerosol inhaler 0 Active ammonium lactate (AMLACTIN) 12 % cream 0 2 Active atorvastatin (LIPITOR) 40 MG tablet Take 1 Tablet by mouth. 0 05/24/19 2 2 Active hydrochlorothiazid e (HYDRODIURIL) 25 MG tablet hydrochlorothiazide 25 mg tablet 0 Active isosorbide mononitrate (IMDUR) 30 MG 24 hr tablet 0 2 Active lisinopril (PRINIVIL,ZESTRIL) 40 MG tablet lisinopril 40 mg tablet 0 Active loperamide (IMODIUM) 2 MG capsule 0 2 Active mirtazapine (REMERON) 7.5 MG tablet 0 2 Active clopidogrel (PLAVIX) 75 MG tablet Take 1 Tablet by mouth. 0 11/29/19 2 1 Active Active Problems Problem Noted Date Melanoma 12/09/2019 Overview: Stage IIb/IIc melanoma, following with Dr. Osorio Carlin, seen 11/19/2019. Bottom of foot, s/p removal years ago Substance abuse 07/29/2019 Overview: Alcohol AICD (automatic cardioverter/defibrillat or) present 07/29/2019 Diverticulosis 07/29/2019 Adrenal adenoma 07/29/2019 Overview: 03/2019 CT 8 mm Right, no change PLMD (periodic limb movement disorder) 0 07/04/2019 CKD (chronic kidney disease) stage 3, GF R 30-59 ml/min 06/18/2019 History of CVA (cerebrovascular accident ) 06/11/2019 Overview: Notes stroke on the table when placing cardiac stent a few years ago Tobacco dependence 06/11/2019 NSVT (nonsustained ventricular tachycard ia) 06/11/2019 Anxiety 06/11/2019 CAD (coronary artery disease) 03/18/2012 Overview: 2007 Inferior OR, CABG x 4 Ischemic cardiomyopathy 03/18/2012 Overview: Last echo 10/2010 LVEF 25-30% (new from 2008), increased biatrial pressures, moderate biatrial enlargement DM (diabetes mellitus), type 2 with radha l complications 03/18/2012 Hyperlipidemia 03/18/2012 HTN (hypertension) 03/18/2012 Severe obesity (BMI 35.0-39.9) with jaya rbidity 03/18/2012 Obstructive sleep apnea moderate TIMI 19 03/18/2012 Overview: [facility] Home Sleep Apnea Test: Date 06/16/2019; Wt 240#; BMI 35; TIMI 19, AI 5; HI 14; Unclassified apneas 0; Obstructive apneas 18; Central apneas 2; Mixed apneas 0; hypopneas 59; average oxygen saturation 92% (lowest 86% without saturations <88% for 5% or more of study) [facility] Polysomnogram treatment study. Date [...] hypoventilation by 2019 home sleep apnea test. Foot pain 03/18/2012 Overview: No gout Resolved Problems Problem Noted Date Resolved Date Prediabetes 2019 08/26/2019 Hx of melanoma of skin 06/11/2019 0 Overview: Stage IIb/IIc melanoma, following with Dr. Osorio Carlin, seen 11/19/2019. Bottom of foot, s/p removal years ago Tobacco abuse 03/18/2012 07/29/2019 Family History Medical History Relation Name Comments Stroke Brother 1 CAD Brother 2 s/p stent No Known Problems Daughter OR Father CABG 60's, CVA No Known Problems Mother Cancer of the Breast Sister heroin addiction though now clean Son 1 No Known Problems Son 2 No Known Problems Son 3 Relation Name Status Comments Brother 1 Alive Brother 2 Alive Brother 3 Alive Daughter Alive Father Mother Sister Alive Son 1 Alive Son 2 Alive Son 3 Alive Social History Tobacco Use Types Packs/Day Years [...] Sign Reading Time Taken Comments Blood Pressure 128/84 03/20/2021 1:03 PM EDT Pulse 78 03/20/2021 1:03 PM EDT Temperature 36.7 ??C (98 ??F) 03/20/2021 1:03 PM EDT Respiratory Rate 18 03/20/2021 1:03 PM EDT Oxygen Saturation 96% 03/20/2021 1:03 PM EDT Inhaled Oxygen Concentration - - Weight 129.3 kg (285 lb) 03/20/2021 1:03 PM EDT Height 175.3 cm (5' 9 ) 03/20/2021 1:03 PM EDT Body Mass Index 42.09 03/20/2021 1:03 PM EDT Plan of Treatment Health Maintenance Due Date Last Done Comments Covid-19 Vaccine (#1) 02/24/1956 DIABETES: ANNUAL EYE EXAM 1972 DIABETES: ANNUAL FOOT EXAM 1972 HEPATITIS C SCREENING 1972 COLON CANCER SCREENING 2004 SHINGLES VACCINE (1 of 2) 2004 Lung Cancer Screening (Low D ose CT) 2009 ABDOMINAL AORTIC ANEURYSM (A AA) SCREENING 08/26/2019 PNEUMOCOCCAL VACCINE (1 - PCV) 08/26/2019 TOBACCO CHECK/ADVISE 06/11/2021 06/11/2019 DIABETES: BLOOD SUGAR CONTRO L TEST (HGBA1C) 06/17/2021 03/17/2021, 10/18/2020, 06/25/2020, Additional history exists DIABETES/HEART DISEASE: CHENT[place] CHOLESTEROL (LDL) 06/25/2021 06/25/2020, 06/25/2020 DIABETES: ANNUAL URINE PROTE IN TEST (MICROALBUMIN) 06/25/2021 06/25/2020, 06/11/2019 BMI CHECK/ADVISE 05/20/2024 10/31/2021, 05/2020, 01/17/2021, Additional history exists INFLUENZA (Season Ended) 2025 DTAP/TDAP/TD (2 - Td or Tdap) 02/18/2028 02/17/2018 Insurance Payer Benefit Plan / Group Subscriber ID Effective Dates Phone Address Type [employer] AARP MEDICARE COMPLETE $15/$45 [facility] [id number] 2019-Prese nt [address] [address] [place] [address] PPO Fee-for- Service [facility] PPO F 1+/$25/$2000/ 20% [id number] 2020-Prese nt [address] [address] [place] [address] PPO Fee-for- Service Care Teams Bag Liner Relationship Specialty Start Date End Date Ney Banuelos DO PCP - General Internal Medicine 10/04/20
--- OUTSIDE RECORDS SUMMARY | 2024-09-17 12:10 | XMS_ITS | Encounter Summary ---
Author Organization [facility] Address [address] [place] [address] Care Team Providers Care Obstetrics Teacher Name Role Phone Kaden Santizo MD Primary Care Provider Joseph Yi MD Primary Care Provider Ney Adame DO Primary Care Provider Marina vailable Encounter Details Date Type Department Care Team Description 05/31/2019 [facility] Medical Records [address] [place] [address] RoddyKisha Social History Tobacco Use Types Packs/Day Years [...] on filedocumented in this encounter Care Teams Obstetrics Teacher Relationship Specialty Start Date End Date Kaden Santizo MD PCP - General 01/09/11 06/08/19 Joseph Crowell MD PCP - General Internal Medicine 06/09/19 10/03/20 Ney Banuelos DO PCP - General Internal Medicine 10/04/20 documented as of this encounter
--- OUTSIDE RECORDS SUMMARY | 2024-09-17 12:10 | XMS_ITS | Encounter Summary ---
Author Organization [facility] Address [address] [place] [address] Care Team Providers Care Program Trainer Name Role Phone Joseph Crowell MD Primary Care Provider Unava ilable Ney Banuelos DO Primary Care Provider Marina vailable Encounter Details Date Type Department Care Team Description 06/12/2019 Release of Information Medical Records [address] [place] [id number] Abstract, Provider Social History Tobacco Use Types [...] on filedocumented in this encounter Care Teams Program Trainer Relationship Specialty Start Date End Date Joseph Crowell MD PCP - General Internal Medicine 06/09/19 10/03/20 Ney Banuelos DO PCP - General Internal Medicine 10/04/20 documented as of this encounter
--- OUTSIDE RECORDS SUMMARY | 2024-09-17 12:10 | XMS_ITS | Clinical Summary ---
Author Organization [facility] Address [address] [place] [address] Care Team Providers Care Drip Box Tender Name Role Phone Soheila Millan MD Primary Care Provider [phone] Allergies No known active allergies Medications Medication [...] years ago Coronary artery disease invo lving [place] coronary artery of [place] heart without angina pectoris 03/18/2012 Overview: Overview: 2007 Inferior [place], CABG x 4 Type 2 diabetes mellitus [...] <88% for 5% or more of study) [facility] Polysomnogram treatment study. Date [...] age to complete this topic Care Teams Drip Box Tender Relationship Specialty Start Date End Date Soheila Millan MD [address] [place] [address] PCP - General Family Medicine 08/14/22
--- OUTSIDE RECORDS SUMMARY | 2024-09-17 12:10 | XMS_ITS | Clinical Summary ---
Author Organization [facility] Address [address] [place] [address] Care Team Providers Care House Painting Instructor Name Role Phone Soheila Millan MD Primary [...] Problems Problem Noted Date Diagnosed Date Melanoma ([facility] V24, [facility] V28) 12/09/2019 Overview (08/01/2023): Stage IIb/IIc melanoma, following with Dr. Osorio Carlin, seen 11/19/2019. Bottom of foot, s/p removal years ago Colitis 11/19/2019 Malignant melanoma of left l ower extremity including hip (CMS/HCC V24, CMS/HCC V28) 11/19/2019 AICD (automatic cardioverter/defibrillator) pres ent 07/29/2019 CKD (chronic kidney disease) stage 3, GFR 30-59 ml/min [place] [place], [facility] V28) 06/18/2019 CAD (coronary artery disease) 03/18/2012 Overview (08/01/2023): 2007 Inferior DE, CABG x 4 Overview: 2007 Inferior DE, CABG x 4 DM (diabetes mellitus), type 2 with renal complications ([facility] [place]24, [facility] V28) 03/18/2012 Type 2 diabetes mellitus wit h diabetic nephropathy, without long-term current use of insulin ([facility] V24, [facility] V28) 03/18/2012 Ischemic cardiomyopathy 03/18/2012 Overview (08/01/2023): Last echo 10/2010 LVEF 25-30% (new from 2008), increased biatrial pressures, moderate biatrial enlargement Overview: Last echo 10/2010 LVEF 25-30% (new from 2008), increased biatrial pressures, moderate biatrial enlargement Obstructive sleep apnea 03/18/2012 Overview (08/01/2023): [facility] Home Sleep Apnea Test: Date 06/16/2019; Wt 240#; BMI 35; TIMI 19, AI 5; HI 14; Unclassified apneas 0; Obstructive apneas 18; Central apneas 2; Mixed apneas 0; hypopneas 59; average oxygen saturation 92% (lowest 86% without saturations <88% for 5% or more of study) [facility] Polysomnogram treatment study. Date [...] by 2019 home sleep apnea test. Overview: [facility] Home Sleep Apnea Test: Date 06/16/2019; Wt 240#; BMI 35; TIMI 19, AI 5; HI 14; Unclassified apneas 0; Obstructive apneas 18; Central apneas 2; Mixed apneas 0; hypopneas 59; average oxygen saturation 92% (lowest 86% without saturations <88% for 5% or more of study) [facility] Polysomnogram treatment study. Date [...] Severe obesity (BMI 35.0-39. 9) with comorbidity ([facility] V24, [facility] V28) 03/18/2012 Immunizations Name Administration Dates Next Due [facility]/22seeds SARS-CoV-2 COVID -19, vector-nr, rS-Ad26, preservative free 08/24/2020 Intio SARS-CoV-2 COVID-19, mRNA, LNP-S, preservative free 04/19/2021 Surgical History Surgery Date Site/Laterality Comments OTHER SURGICAL HISTORY PROCEDURE:quadruple bypass OTHER SURGICAL HISTORY PROCEDURE:DEFIBRILATOR;COMMENT:PUT IN Medical History Medical History Date Comments Melanoma of heel ([facility] V24, [facility] V28) DX:Melanoma of heel (HCC) Diabetes ([facility] V24, [facility] V28) DX:Diabetes (HCC) Hypertension DX:Hypertension Family History [...] Description 11/02/2024 2:00 PM EDT Office Visit [facility] Hematology Oncology [address] [place] [phone] Osorio-Saravanan Carlin MD [address] [place] [phone] Health Maintenance Due Date Last Done Comments [...] Maintenance Insurance [employer] MEDICARE Care Teams House Painting Instructor Relationship Specialty Start Date End Date Soheila Millan MD [address] [place] [phone] PCP - General 08/14/22
--- OUTSIDE RECORDS SUMMARY | 2024-09-17 12:10 | XMS_ITS | Encounter Summary ---
Author Organization [facility] Address [address] [place] [address] Care Team Providers Care Director Of Industrial Relations Name Role Phone Joseph Crowell MD Primary Care Provider Unava ilable Ney Banuelos DO Primary Care Provider Marina vailable Encounter Details Date Type Department Care Team Description 07/20/2019 Release of Information Medical Records [address] [place] [id number] Abstract, Provider Social History Tobacco Use Types [...] EST AUTHORIZATION TO OBTAIN RECORDS FAXED TO [facility]. documented in this encounter Plan of Treatment Not on file documented as of this encounter Visit Diagnoses Not on filedocumented in this encounter Care Teams Director Of Industrial Relations Relationship Specialty Start Date End Date Joseph Crowell MD PCP - General Internal Medicine 06/09/19 10/03/20 Ney Banuelos DO PCP - General Internal Medicine 10/04/20 documented as of this encounter
--- OUTSIDE RECORDS SUMMARY | 2024-09-17 12:10 | XMS_ITS | Encounter Summary ---
Author Organization [facility] Address [address] [place] [address] Care Team Providers Care Insurance Claims Specialist Name Role Phone Joseph Crowell MD Primary Care Provider Unava ilable Ney Banuelos DO Primary Care Provider Marina vailable Reason for Visit * Reason Onset Date Comments APPOINTMENT 07/08/2019 Encounter Details Date Type Department Care Team Description 07/08/2019 Telephone Walk In [address] [address] Eloisa Chino FNP [address] [place] [address] APPOINTMENT Social History Tobacco Use Types Packs/Day [...] on filedocumented in this encounter Care Teams Insurance Claims Specialist Relationship Specialty Start Date End Date Joseph Crowell MD PCP - General Internal Medicine 06/09/19 10/03/20 Ney Banuelos DO PCP - General Internal Medicine 10/04/20 documented as of this encounter
== END 2024-09-17 11:32 | disposition home or self-care (01) ==
LOC: HO.PMCPRC 10:36
PROVIDERS: PCP Family Medicine; Visit Provider Internal Medicine
DX: M16.12 Unilateral primary osteoarthritis, left hip (principal)
CPT/HCPCS: 20610; 77002

== ENCOUNTER 2024-10-14 11:29 | Outpatient (AMB) | payer MEDICARE, SELFPAY ==
--- NOTE | 2024-10-14 11:36 | A.OFFVIS_ITS ---
Vital Signs 10/14/24 11:38 BP 142/70 H Blood Pressure Location Rt brachial Position Sitting Pulse 65 Pulse Source Pulse Oximeter Pulse Oximetry (%) 96 Oxygen Delivery Method Room Air Intake Visit Reasons: s/p left hip injection Allergies No Known Allergies Allergy (Verified 10/14/24 11:39) HPI Comments Details: The patient is a 69-year-old male presenting with hip pain. The pain has persisted for a year, primarily affecting the groin area and fluctuates in severity with weather changes, particularly worsening with rain, consistent with osteoarthritis. An injection was administered about a month ago, targeting the joint capsule, with notable relief occurring after approximately one week. The patient's medical history includes Congestive Heart Failure, managed with a defibrillator, and a planned procedure to monitor cardiac pressure levels for better fluid management. The patient remains uncertain about sedation for the upcoming procedure. Pain today is rated as a 3/10 Today he is also complaining of left shoulder pain, denies any recent imaging. He is interested in getting a steroid injection for this pain. - Onset and Timing: Pain has been present for approximately one year. - Quality and Character: Intermittent pain, with fluctuating severity; worsens with weather changes, especially rain. - Primary Location: Groin area. - Radiation: None mentioned. - Exacerbating Factors: Rainy weather. - Alleviating Factors: Injection provided delayed relief, taking about a week to be effective. - Interference with Activities: Affects daily activities, with some days being better than others. - Affect: Patient is concerned about the substantiality of arthritis and its impact on daily activities. - Analgesia: Injection administered a month ago with delayed relief; current pain management is ongoing. - Adverse Effects: None reported from the pain medication. - Activities of Daily Living: Pain affects daily activities, with variability in severity. - Aberrant Drug Related Behaviors: None reported or observed. [facility] Medical History (Updated 10/14/24 @ 12:26 by Janki Yanes APRN, SUPERVISOR BEAM DEPARTMENT) CHF (congestive heart failure) Coronary artery disease Head injury Alcohol abuse Syncope High cholesterol HTN (hypertension) Borderline diabetes mellitus CVA (cerebral vascular accident) Surgical History Status post coronary artery bypass graft Stented coronary artery H/O heart bypass surgery Social History Household Members: Family Household Members Other:: son lives next door Housing: House Do you presently have visiting nurse or other home services: No Alcohol intake: current Alcohol intake frequency: 3 or more drinks per day Alcohol type: beer Patient Tobacco Use Status: Current someday Tobacco user Tobacco use type: Cigarette Cigarettes Per Day: 10 Years Smoked: 40 Second Hand Smoke Exposure: No Substance Use Type: Marijuana and Painkillers Advance Directives Date on File: 11/22/21 service: No Current occupational status: disabled Review of Systems Const Details: - Musculoskeletal: Reports hip pain, especially in the groin area, with variability. Reports left shoulder pain, worse with movement. - Cardiovascular: Reports a history of Congestive Heart Failure, presence of an implanted defibrillator. - General: Denies any other systemic complaints discussed. Physical Exam Vital Signs: Last Vital Signs Pulse 65 10/14/24 11:38 BP 142/70 H 10/14/24 11:38 Pulse Ox 96 10/14/24 11:38 Oxygen Delivery Method Room Air 10/14/24 11:38 General: awake, alert, oriented. Answers questions appropriately. Fully engaged in examination. Skin: warm, dry, intact HEENT: Normocephalic. Hearing intact. Cardiac: External chest normal in appearance. Bilateral peripheral edema. Respiratory: No cough, audible wheezing or stridor. Abdomen: without gross distension. No visible hernia MS: No obvious swelling or deformities. Left shoulder: Decreased range of motion, tenderness to palpation over GH/AC. Neurological: Oriented to person, place, time and situation. Thought process intact. Psychiatric: Appropriate mood and affect. Good judgment and insight. Results Reviewed Results Reviewed: 12/16/23: XR/XR hip LT w PEL1V EXAMINATION: XR HIP, LEFT CLINICAL INFORMATION: Left hip pain for 3 weeks. COMPARISON: None available. TECHNIQUE: Frontal view of pelvis. Two views of the left hip. FINDINGS: No fracture. No focal bone lesion. Hip joints are normal. Normal sacroiliac joints. Moderate subchondral osteosclerosis and cystic changes of the symphysis pubis bilateral. Multilevel degenerative spondylosis of lower lumbar spine. Vascular calcifications of the iliac and femoral arteries. IMPRESSION: No acute abnormality of the pelvis or left hip. Assessment & Plan Assessment & Plan (1) Left shoulder pain: Code(s): M25.512 - Pain in left shoulder Category: Medical (2) Left hip pain: Code(s): M25.552 - Pain in left hip Category: Medical Plan We addressed the patient's hip pain related to osteoarthritis. For hip pain, we acknowledged the past injection's delayed relief and discussed monitoring and adjusting future interventions as needed. X-ray ordered for his left shoulder. Will plan for fluoroscopy guided left intra-articular shoulder injection with local anesthetic. I discussed with the patient the likely diagnosis of osteoarthritis contributing to his hip pain and the potential need for ongoing pain management strategies. We reviewed the previous injection's effectiveness and the influence of weather on his symptoms. The patient was advised on the importance of follow-up appointments to evaluate his pain management concerns. Will schedule for fluoroscopy guided left intra-articular shoulder injection with local anesthetic Patient was informed and verbally consented to the use of an ambient scribe for clinic note documentation during this visit. Orders: Orders XR shoulder LT min 2V Today M25.512 - Pain in left shoulder Patient Instructions: - Monitor hip pain and note any changes in severity or pattern. - Await call to schedule left shoulder injection - Complete left shoulder x-rays as ordered - Report any significant changes in symptoms or concerns promptly. Coding Level of Care Code Est Pt Level 3 (02762) Complex EM visit Add On G2211 Diagnoses Left shoulder pain M25.512 Left hip pain M25.552
[2024-10-14 11:38] VITALS: BP 142/70; PULSE 65; O2SAT 96
--- OUTSIDE RECORDS SUMMARY | 2024-10-14 12:22 | XMS_ITS | Clinical Summary ---
Author Organization [facility] Address [address] [place] [address] Care Team Providers Care Radiator Core Tester Name Role Phone Soheila Millan MD Primary Care Provider [phone] Allergies No known active allergies Medications Medication [...] years ago Coronary artery disease invo lving [place] coronary artery of [place] heart without angina pectoris 03/18/2012 Overview: Overview: 2007 Inferior [place], CABG x 4 Type 2 diabetes mellitus [...] <88% for 5% or more of study) [facility] Polysomnogram treatment study. Date [...] age to complete this topic Care Teams Radiator Core Tester Relationship Specialty Start Date End Date Soheila Millan MD [address] [place] [address] PCP - General Family Medicine 08/14/22
== END 2024-10-14 11:58 | disposition home or self-care (01) ==
LOC: HO.PMC 11:29
PROVIDERS: PCP Family Medicine; Visit Provider Registered Nurse Emergency
DX: M25.512 Pain in left shoulder (principal); M25.552 Pain in left hip
CPT/HCPCS: 99213; G2211

== ENCOUNTER → 2024-10-14 11:29 | Outpatient (BNVA) | payer MEDICARE, SELFPAY | PROVIDERS: PCP Family Medicine; Visit Provider Registered Nurse Emergency | DX: M25.512 Pain in left shoulder (principal); M25.552 Pain in left hip | CPT/HCPCS: 99212 ==

== ENCOUNTER 2024-11-09 11:07 | Outpatient (AMB) | payer MEDICARE, SELFPAY ==
--- NOTE | 2024-11-09 11:14 | A.OFFVIS_ITS ---
Vital Signs 11/09/24 11:16 Height 5 ft 9 in Weight 284 lb BMI 41.9 BP 97/54 L Blood Pressure Location Lt brachial Position Sitting Respiration 16 Pulse 64 Pulse Source Pulse Oximeter Pulse Oximetry (%) 93 Oxygen Delivery Method Room Air Intake Visit Reasons: Left shoulder injection Power And Recovery Shift Engineer Required: No Community Midwife: Community Midwife Present Accompanied by: Julio Gallego Allergies No Known Allergies Allergy (Verified 11/09/24 11:17) Medication List - Last Reconciled 11/09/24 by Ijeoma Gaspar LPN albuterol sulfate 90 mcg/actuation 1 inh inhalation QID PRN allopurinol 200 mg PO DAILY amiodarone 1 tab PO DAILY atorvastatin 1 tab PO DAILY clopidogrel 1 tab PO DAILY dapagliflozin propanediol (Farxiga) 10 mg PO DAILY gabapentin 800 mg PO BEDTIME hydroxyzine HCl 50 mg PO BEDTIME hydroxyzine HCl 25 mg PO DAILY ipratropium bromide 17 mcg/actuation (Atrovent HFA) 2 puffs inhalation QID PRN metolazone 2.5 mg PO DAILY PRN mexiletine 150 mg PO BID sacubitril-valsartan 49-51 mg (Entresto) 1 tab PO BID tamsulosin 0.4 mg PO DAILY trazodone 100 mg PO BEDTIME HPI HPI Left shoulder injection: Details: History of Present Illness The patient is a 69-year-old male presenting with hip pain and shoulder pain with a clicking sound. The hip pain is severe, necessitating the use of a walker by nighttime due to increased discomfort. This pain has been ongoing, significantly affecting the patient's mobility and daily life. The shoulder pain is associated with a clicking sound upon arm elevation, suggesting potential joint complications. This pain interferes with the patient's ability to perform tasks involving arm elevation. Pain Description - Hip pain: Severe, requiring walker by nighttime, impacts mobility and daily activities. - Shoulder pain: Clicking sound when arm is raised, affects overhead activities. Physical Exam - Musculoskeletal: Pain in shoulder with clicking sound on arm elevation, indicating possible joint issues. Procedure - Left glenohumeral joint injection: Informed consent obtained, patient seated, 21-gauge needle used under ultrasound guidance, 40 mg Kenalog with 0.25% ropivacaine injected, no blood loss, patient tolerated well. US image saved to patients record. [facility] Medical History (Updated 10/14/24 @ 12:26 by Janki Yanes APRN, LEARNING AND DEVELOPMENT ASSOCIATE) CHF (congestive heart failure) Coronary artery disease Head injury Alcohol abuse Syncope High cholesterol HTN (hypertension) Borderline diabetes mellitus CVA (cerebral vascular accident) Surgical History Status post coronary artery bypass graft Stented coronary artery H/O heart bypass surgery Social History Household Members: Family Household Members Other:: son lives next door Housing: House Do you presently have visiting nurse or other home services: No Alcohol intake: current Alcohol intake frequency: 3 or more drinks per day Alcohol type: beer Patient Tobacco Use Status: Current someday Tobacco user Tobacco use type: Cigarette Cigarettes Per Day: 10 Years Smoked: 40 Second Hand Smoke Exposure: No Substance Use Type: Marijuana and Painkillers Advance Directives Date on File: 11/22/21 service: No Current occupational status: disabled Physical Exam Vital Signs: Last Vital Signs Pulse 64 11/09/24 11:16 Resp 16 11/09/24 11:16 BP 97/54 L 11/09/24 11:16 Pulse Ox 93 11/09/24 11:16 Oxygen Delivery Method Room Air 11/09/24 11:16 BMI result Body Mass Index 41.9 Assessment & Plan Assessment & Plan (1) Left shoulder pain: Code(s): M25.512 - Pain in left shoulder Category: Medical Plan Plan - Repeat left glenohumeral joint injection as needed based on patient's response. Patient was informed and verbally consented to the use of an ambient scribe for clinic note documentation during this visit. Discussion Notes I discussed the procedure of the left glenohumeral joint injection with the patient, including the use of ultrasound guidance and the medications involved. The patient was informed about the potential benefits and the plan to repeat the procedure as needed. Coding Level of Care Code Procedure Only Diagnoses Left shoulder pain M25.512
[2024-11-09 11:16] VITALS: BP 97/54; PULSE 64; RESP 16; O2SAT 93; BMI 41.9
--- OUTSIDE RECORDS SUMMARY | 2024-11-09 12:41 | XMS_ITS | Clinical Summary ---
Author Organization [facility] Address [address] [place] [address] Care Team Providers Care Waiter/Waitress Take Out Name Role Phone Soheila Millan MD Primary Care Provider [phone] Allergies No known active allergies Medications Medication [...] years ago Coronary artery disease invo lving [place] coronary artery of [place] heart without angina pectoris 03/18/2012 Overview: Overview: 2007 Inferior [place], CABG x 4 Type 2 diabetes mellitus [...] <88% for 5% or more of study) [facility] Polysomnogram treatment study. Date 07/04/2019. [...] 59 11/04/2023 11:47 AM EDT Temperature 36.7 C (98.1 F) 11/04/2023 11:47 AM EDT Respiratory Rate - - Oxygen [...] 04/19/2021, 08/24/2020 Influenza Vaccine (Season Ended) 2025 04/19/2021, 04/12/2020 DTap / Tdap / Td (2 - Td or Tdap) 02/18/2028 02/17/2018 Hepatitis B Vaccines Aged Out No long er eligible based on patient's age to complete this topic RSV Ped < 20 months Aged Out No longe r eligible based on patient's age to complete this topic Care Teams Waiter/Waitress Take Out Relationship Specialty Start Date End Date Soheila Millan MD [address] [place] [address] PCP - General Family Medicine 08/14/22
== END 2024-11-09 11:46 | disposition home or self-care (01) ==
PROVIDERS: PCP Family Medicine; Visit Provider Internal Medicine
DX: M25.512 Pain in left shoulder (principal)
CPT/HCPCS: 20611

== ENCOUNTER → 2024-11-09 11:07 | Outpatient (BNVA) | payer MEDICARE, SELFPAY | PROVIDERS: PCP Family Medicine; Visit Provider Internal Medicine | DX: M25.512 Pain in left shoulder (principal) | CPT/HCPCS: 20611 ==

== ENCOUNTER 2025-02-01 11:45 | Outpatient (AMB) | payer MEDICARE, SELFPAY ==
[2025-02-01 11:48] VITALS: BP 108/66; PULSE 64; RESP 16; O2SAT 94; BMI 41.5
--- NOTE | 2025-02-01 11:48 | A.OFFVIS_ITS ---
Vital Signs 02/01/25 11:48 Height 5 ft 9 in Weight 281 lb BMI 41.5 BP 108/66 Blood Pressure Location Lt brachial Position Sitting Respiration 16 Pulse 64 Pulse Source Pulse Oximeter Pulse Oximetry (%) 94 Oxygen Delivery Method Room Air Intake Visit Reasons: Follow Up Pt Request Processing Mgr Required: No Allergies No Known Allergies Allergy (Verified 02/01/25 11:50) Medication List - Last Reconciled 02/01/25 by Ijeoma Gaspar LPN albuterol sulfate 90 mcg/actuation 1 inh inhalation QID PRN allopurinol 200 mg PO DAILY amiodarone 1 tab PO DAILY atorvastatin 1 tab PO DAILY clopidogrel 1 tab PO DAILY dapagliflozin propanediol (Farxiga) 10 mg PO DAILY escitalopram oxalate 10 mg PO DAILY gabapentin 800 mg PO BEDTIME hydroxyzine HCl 50 mg PO BEDTIME hydroxyzine HCl 25 mg PO DAILY ipratropium bromide 17 mcg/actuation (Atrovent HFA) 2 puffs inhalation QID PRN metolazone 2.5 mg PO DAILY PRN mexiletine 150 mg PO BID sacubitril-valsartan 49-51 mg (Entresto) 1 tab PO BID tamsulosin 0.4 mg PO DAILY torsemide mg PO trazodone 100 mg PO BEDTIME HPI HPI Follow Up Pt Request: Details: History of Present Illness The patient is a 69-year-old male presenting with left glenohumeral joint pain and left hip pain. The left glenohumeral joint pain was previously managed with an injection under ultrasound guidance in October, which provided moderate relief. The patient reports that the shoulder is better but still experiences some pain. The left hip pain has been persistent and debilitating, described as originating in the groin area, suggesting a possible labral tear. 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 A previous hip injection in September did not provide relief, and the patient continues to experience significant pain after walking short distances. The patient has a history of anxiety and depression, which may be exacerbated by the chronic pain. The patient consumes alcohol but does not consider himself dependent. He is also on Plavix, which affects platelet function and may influence treatment options. Pain Description - Onset: Over a year ago, following a work-related injury. - Quality: Persistent and debilitating, primarily in the groin area. - Exacerbating factors: Walking short distances increases pain. - Relieving factors: Previous interventions like injections have not provided significant relief. Pain Management - Affect: Chronic pain may be contributing to anxiety and depression. - Analgesia: Previous injections provided limited relief; current pain managemen t options are being reconsidered. - Adverse Effects: No specific adverse effects from pain medications discussed. - Activities of Daily Living: Pain limits walking to short distances, impacting daily activities. - Aberrant Drug Related Behaviors: No aberrant behaviors reported. [facility] Medical History (Updated 10/14/24 @ 12:26 by Janki Yanes, DISPATCH CLERK, PROCUREMENT AGENT) CHF (congestive heart failure) Coronary artery disease Head injury Alcohol abuse Syncope High cholesterol HTN (hypertension) Borderline diabetes mellitus CVA (cerebral vascular accident) Surgical History Status post coronary artery bypass graft Stented coronary artery H/O heart bypass surgery Social History Household Members: Family Household Members Other:: son lives next door Housing: House Do you presently have visiting nurse or other home services: No Alcohol intake: current Alcohol intake frequency: 3 or more drinks per day Alcohol type: beer Patient Tobacco Use Status: Current someday Tobacco user Tobacco use type: Cigarette Cigarettes Per Day: 10 Years Smoked: 40 Second Hand Smoke Exposure: No Substance Use Type: Marijuana and Painkillers Advance Directives Date on File: 11/22/21 service: No Current occupational status: disabled Physical Exam Vital Signs: Last Vital Signs Pulse 64 02/01/25 11:48 Resp 16 02/01/25 11:48 BP 108/66 02/01/25 11:48 Pulse Ox 94 02/01/25 11:48 Oxygen Delivery Method Room Air 02/01/25 11:48 BMI result Body Mass Index 41.5 Assessment & Plan Assessment & Plan (1) Osteoarthritis of left hip: Code(s): M16.12 - Unilateral primary osteoarthritis, left hip Category: Medical (2) Left shoulder pain: Code(s): M25.512 - Pain in left shoulder Category: Medical Plan Plan Patient was informed and verbally consented to the use of an ambient scribe for clinic note documentation during this visit. 1. Left Glenohumeral Joint Pain - Continue monitoring the shoulder pain and consider further interventions if necessary. 2. Left Hip Pain - Plan for a repeat left hip fluoroscopic steroid injection for pain management. - Consideration of platelet-rich plasma (PRP) therapy if approved by worker's compensation, though impact of Plavix on potential treatment options like PRP therapy. 3. Anxiety And Depression - Monitor mental health status and consider referral to mental health services if symptoms persist. 4. Alcohol Use - Discussed the impact of alcohol on treatment options and encouraged moderation. Discussion Notes I discussed with the patient the option of repeating the left hip injection for pain management and the potential use of platelet-rich plasma (PRP) therapy, which may require approval from worker's compensation. We also reviewed the impact of alcohol use and Plavix on treatment options. Patient Instructions - Follow up with your occupational ther to ensure worker's compensation details are updated in our system. - Consider moderating alcohol consumption as it may affect treatment options. - Monitor mental health and seek support if anxiety or depression symptoms worsen. Coding Level of Care Code Est Pt Level 4 (61791) Diagnoses Osteoarthritis of left hip M16.12 Left shoulder pain M25.512
--- OUTSIDE RECORDS SUMMARY | 2025-02-01 16:24 | XMS_ITS | Clinical Summary ---
Author Organization [facility] Address [address] [place] [address] Care Team Providers Care Technical Service Representative Name Role Phone Soheila Millan MD Primary Care Provider [phone] Allergies No known active allergies Medications Medication [...] years ago Coronary artery disease invo lving [place] coronary artery of [place] heart without angina pectoris 03/18/2012 Overview: Overview: 2007 Inferior [place], CABG x 4 Type 2 diabetes mellitus [...] <88% for 5% or more of study) [facility] Polysomnogram treatment study. Date [...] 2) 1973 Colon Cancer Screening (Colonoscopy) 08/26/1999 Abdominal Aortic Aneurysm (AAA) Screening 08/26/2019 Fall Risk Assessment 08/26/2019 COVID-19 Vaccine (3 - 2024-2 6 season) 2025 04/19/2021, 08/24/2020 Influenza Vaccine (#1) 2025 , 04/12/2020 DTap / Tdap / Td (2 - Td or Tdap) 02/18/2028 02/17/2018 RSV Adult > 60+ Yrs or (1 - 1-dose 75+ series) 2029 Hepatitis B Vaccines Aged Out No long er eligible based on patient's age to complete this topic RSV Ped < 20 months Aged Out No longe r eligible based on patient's age to complete this topic Care Teams Technical Service Representative Relationship Specialty Start Date End Date Soheila Millan MD [address] [place] [address] PCP - General Family Medicine 08/14/22
--- OUTSIDE RECORDS SUMMARY | 2025-02-01 16:24 | XMS_ITS | Clinical Summary ---
Author Organization [facility] Address [address] [address] Phone Care Team Providers Care Crawler Dragline Operator Name Role Phone Joseph Crowell MD Primary Care Provider Allergies No known active allergies Medications furosemide (LASIX) 40 MG tablet Take 40 mg by mouth. Active spironolactone (ALDACTONE) 25 MG tablet Take 25 mg by mouth daily. Active FARXIGA 10 mg tablet Take by mouth. 09/06/2022 Active atorvastatin (LIPITOR) 40 MG tablet Take 40 mg by mouth daily. Active albuterol 90 mcg/actuation inhaler 2 puffs every 6 (six) hours as needed. Active escitalopram oxalate (LEXAPRO) 10 MG tablet Take 10 mg by mouth. 10/22/2022 Active gabapentin (NEURONTIN) 300 MG capsule Take 300 mg by mouth. 10/22/2022 Active hydrOXYzine (ATARAX) 25 MG tablet Take 25 mg by mouth. 11/29/2021 Active mexiletine (MEXITIL) 150 MG capsule Take 150 mg by mouth. 12/26/2022 Active tamsulosin (FLOMAX) 0.4 mg Cap Take 0.4 mg by mouth. 10/22/2022 Active cyanocobalamin, vitamin B-12, 1000 MCG tablet Take 1,000 mcg by mouth daily. Active traZODone (DESYREL) 50 MG tablet Take 50 mg by mouth nightly at bedtime. Active torsemide (DEMADEX) 20 MG tablet Take 40 mg by mouth 2 (two) times a day (once in the morning and once in the afternoon). Active doxycycline hyclate (DORYX) 100 MG tablet For strep throat 08/13/2023 Active predniSONE (DELTASONE) 10 MG tablet Take 50 mg by mouth daily. 08/13/2023 Active hydroCHLOROthiaz jagdish (HYDRODIURIL) 25 MG tablet Active metoprolol tartrate (LOPRESSOR) 50 MG tablet Active allopurinol (ZYLOPRIM) 100 MG tablet 05/22/2023 Active amiodarone (PACERONE) 200 MG tablet Take 200 mg by mouth daily. 04/15/2022 Active carvedilol (COREG) 12.5 MG tablet Take 12.5 mg by mouth 2 (two) times a day with meals. Active clopidogrel (PLAVIX) 75 mg tablet Take 75 mg by mouth daily. Active isosorbide mononitrate (IMDUR) 60 MG 24 hr tablet Active lisinopril (PRINIVIL,ZESTRI L) 40 MG tablet Acti ve sacubitriL-valsa rtan (ENTRESTO) 24-26 mg per tablet Take 1 tablet by mouth 2 (two) times a day. Active simvastatin (ZOCOR) 80 MG tablet Active Social History Tobacco Use Types Packs/Day Years Used Date Smoking Tobacco: Every Day Cigarettes 0.5 55 Smokeless Tobacco: Never Alcohol Use Standard Drinks/Week Comments Yes 0 (1 standard drink = 0.6 oz pur e alcohol) 2 drinks 4x a week Education Answer Date Recorded Are you interested in more education? Not on claudia e 09/14/2022 Are you concerned about learning? Not on file 09/14/2022 No 09/14/2022 No 09/14/2022 Digital Access Answer Date Recorded No 10/16/2022 No 10/16/2022 Reliable internet access at home? Not on file 10/16/2022 Device with a working camera? Not on file Intimate Partner Violence Answer Date R ecorded Are you denied basic needs s uch as food, clothing, or medical care? No 08/16/2023 In the past 12 months have y ou been in a relationship with a person who hurts, threatens, or tries to control you? No 08/16/2023 Are you denied basic needs s uch as food, clothing, or medical care? No 08/16/2023 In the past 12 months have y ou been in a relationship with a person who hurts, threatens, or tries to control you? No 08/16/2023 Sex and Gender Information Value Date Recorded Sex Assigned at Male 09/28/2019 3:20 PM EDT Legal Sex Male 3:08 PM EDT Gender Identity Male 09/28/2019 3:20 PM EDT Sexual Orientation Not on file Last Filed Vital Signs Vital Sign Reading Time Taken Comments Blood Pressure 138/80 09/28/2019 6:03 PM EDT Pulse 62 09/28/2019 6:03 PM EDT Temperature 36.7 C (98.1 F) 09/28/2019 6:03 PM EDT Respiratory Rate 18 09/28/2019 6:03 PM EDT Oxygen Saturation 97% 09/28/2019 6:03 PM EDT Inhaled Oxygen Concentration - - Weight 131.5 kg (290 lb) 05/06/2023 10:37 AM EST Height 175.3 cm (5' 9 ) 05/06/2023 10:37 AM EST Body Mass Index 42.83 05/06/2023 10:37 AM EST Plan of Treatment Health Maintenance Due Date Last Done Comments LIPID PANEL 1954 TSH LEVEL 1954 DEPRESSION SCREENING 1966 SMOKING Hx and SMOKELESS TOBACCO SCREENING 08/26/1967 HEPATITIS C SCREENING 1972 COLOGUARD 08/26/1999 COLONOSCOPY 08/26/1999 COLORECTAL CANCER SCREENING 08/26/1999 FIT TEST 08/26/1999 FOBT 08/26/1999 SIGMOIDOSCOPY 08/26/1999 VIRTUAL COLONOSCOPY 08/26/1999 ZOSTER VACCINES (1 of 2) 2004 RSV VACCINE (1 - Risk 60-74 years 1-dose series) 2014 ABDOMINAL AORTIC ANEURYSM (AAA) SCREENING 08/26/2019 03/17/2018 ALT LEVEL (ALANINE AMINOTRANSFERASE) 09/27/2020 09/28/2019 CREATININE LEVEL 09/27/2020 09/28/2019 POTASSIUM LEVEL 09/27/2020 09/28/2019 INFLUENZA VACCINE (#1) 2024 , 03/27/2022, 04/19/2021, Additional history exists COVID-19 VACCINE ( season) 2025 02/14/2023, 03/27/2022, 04/19/2021, Additional history exists Adult Td,Tdap Booster 07/26/2032 07/26/2022 PNEUMOCOCCAL VACCINES (50+ years) Completed 02/14/2023 HEPATITIS A VACCINES Aged Out No long er eligible based on patient's age to complete this topic HIB VACCINES Aged Out No longer eligi ble based on patient's age to complete this topic MENINGOCOCCAL VACCINES (ACWY) Aged Out No longer eligible based on patient's age to complete this topic MENINGOCOCCAL VACCINES (B) Aged Out N o longer eligible based on patient's age to complete this topic Medical Devices Not on file Procedures Procedure Name Priority Date/Time Associated Diagnosis Comments BASIC METABOLIC PANEL STAT 09/28/2019 3:51 PM EDT LFTS (HEPATIC PANEL) STAT 09/28/2019 3:51 PM EDT from Last 3 Months or Most Recently Relevant to Health Maintenance Results * LFTs (hepatic panel) (09/28/2019 3:51 PM EDT) ALKALINE PHOSPHATASE 49 39 - 117 U/L [facility] TOTAL BILIRUBIN 0.3 0.0 - 1.2 mg/dL [facility] DIRECT BILIRUBIN <0.2 0 - 0.3 mg/dL [facility] Bilirubin (Indirect) NOT CALCULATED 0 - 1.5 mg/dL [facility] AST 14 0 - 37 U/L [facility] ALT 18 0 - 40 U/L [facility] TOTAL PROTEIN 6.8 6.5 - 8.0 g/dL [facility] ALBUMIN 4.4 3.9 - 4.8 g/dL [facility] GLOBULIN 2.4 1 - 4.8 g/dL [facility] A/G Ratio 1.83 1.00 - 4.80 RATIO [facility] Blood 09/28/2019 3:51 PM EDT 09/28/2019 4:12 PM EDT us Jeanne Braga MD LAB BLOOD ORDERABLES Final R esult [facility] [address] [place] [address] * (ABNORMAL) Basic metabolic panel (09/28/2019 3:51 PM EDT) SODIUM 136 133 - 146 mmol/L [facility] CHLORIDE 97 96 - 108 mmol/L [facility] POTASSIUM 4.5 3.3 - 5.1 mmol/L [facility] CO2 25 21 - 35 mmol/L [facility] BUN 22(H) 6 - 19 mg/dL [facility] CREATININE 1.00 0.5 - 1.5 mg/dL [facility] GLUCOSE 98 70 - 99 mg/dL [facility] CALCIUM 8.9 8.4 - 10.3 mg/dL [facility] EGFR 79 >59 mL/min/1.7 3m2 [facility] Comment:If patient is black, multiply result by 1.159. Estimated glomerular filtration rate calculated using the CKD-EPI equation. ANION GAP 19 10 - 20 mmol/L [facility] Blood 09/28/2019 3:51 PM EDT 09/28/2019 4:12 PM EDT Jeanne Braga MD LAB BLOOD ORDERABLES Final R esult [facility] [address] [place] [address] from Last 3 Months or Most Recently Relevant to Health Maintenance Insurance [place] [address] MEDICARE REPLACEMENT Care Teams Crawler Dragline Operator Relationship Specialty Start Date End Date Joseph Crowell MD PCP - General Internal Medicine 09/28/19 Additional Source Comments The information contained in this document represents components of the legal health record. It is not the complete legal health record.[facility]
--- OUTSIDE RECORDS SUMMARY | 2025-02-01 16:24 | XMS_ITS | Encounter Summary ---
Author Organization [facility] Address [address] [place] [phone] Phone Care Team Providers Care Veterinary Livestock Inspector Name Role Phone Joseph Crowell MD Primary Care Provider Encounter Details Date Type Department Care Team (Late st Contact Info) Description 08/19/2023 Procedure Pass [facility] Endoscopy Admitting Dept Virtual Department [address] [place] [id number] Social History Tobacco Use Types Packs/Day Years [...] PM EDT Sexual Orientation Not on file documented as of this encounter Plan of Treatment Not on file documented as of this encounter Visit Diagnoses Not on filedocumented in this encounter Care Teams Veterinary Livestock Inspector Relationship Specialty Start Date End Date Joseph Crowell MD PCP - General Internal Medicine 09/28/19 documented as of this encounter Additional Source Comments The information contained in this document represents components of the legal health record. It is not the complete legal health record.[facility]
--- OUTSIDE RECORDS SUMMARY | 2025-02-01 16:24 | XMS_ITS | Clinical Summary ---
Author Organization [facility] Address [address] [place] [address] Phone Care Team Providers Care Lead Network Engineer Name Role Phone Soheila Millan MD Primary Care Provider [phone] Allergies No known active allergies Medications amiodarone (PACERONE) 200 mg tablet Take 1 tablet (200 mg total) by mouth daily. Active atorvastatin (LIPITOR) 40 mg tablet Take 1 tablet (40 mg total) by mouth daily. 2 Active carvediloL (COREG) 12.5 mg tablet Take 1 tablet (12.5 mg total) by mouth 2 (two) times a day with meals. Active clopidogreL (PLAVIX) 75 mg tablet Take 1 tablet (75 mg total) by mouth daily. 1 Active hydrOXYzine HCL (ATARAX) 25 mg tablet Take 1 tablet (25 mg total) by mouth. 1 Active sacubitriL-vals kell (ENTRESTO) 24-26 mg per tablet Take 1 tablet by mouth 2 (two) times a day. Active spironolactone (ALDACTONE) 25 mg tablet Take 2 split tablet (25 mg total) by mouth daily. Active torsemide (DEMADEX) 20 mg tablet 2 Active albuterol HFA (PROAIR HFA ; PROVENTIL HFA ; VENTOLIN HFA) 90 mcg/actuation inhaler Inhale 2 puffs by mouth every 4 (four) hours if needed. Active aspirin 81 mg EC tablet Take 1 tablet (81 mg total) by mouth. 5 Active cyanocobalamin (VITAMIN B-12) 1,000 mcg tablet Take 1 tablet (1,000 mcg total) by mouth daily. Active Farxiga 10 mg tablet See Instructions, TAKE ONE TABLET BY MOUTH ONCE DAILY, # 30 tablet, 10 Refills, Maintenance, 06/15/24 4:49:00 PM EST, [facility], 175, cm, 06/11/24 13:26:00 EST, Height, 143.7, kg, 04/30/24 16:07:00 EST, Dry Weight 3 Active gabapentin (NEURONTIN) 800 mg tablet Take 1 tablet (800 mg total) by mouth. 5 Active mexiletine (MEXITIL) 150 mg capsule Take 1 capsule (150 mg total) by mouth 2 (two) times a day. Active isosorbide mononitrate (IMDUR) 60 mg 24 hr tablet Take 1 tablet (60 mg total) by mouth. Active allopurinoL (ZYLOPRIM) 300 mg tablet See Instructions, 1 tablet By Mouth Daily taken with additional 100mg tablet to total 400mg, Refills 0, Maintenance, 07/24/23 8:14:00 AM EST, Instructions Replace Required Details, Partial fill upon patient request if the prescription is for a schedule II opioid drug. 4 Active allopurinoL (ZYLOPRIM) 100 mg tablet 4 Active lisinopril (PRINIVIL,ZESTR IL) 40 mg tablet 2 Active escitalopram (LEXAPRO) 10 mg tablet Take 1 tablet (10 mg total) by mouth. 3 Active tamsulosin (FLOMAX) 0.4 mg 24 hr capsule Take 1 capsule (0.4 mg total) by mouth 1 (one) time each day with breakfast. Capsules should be taken 30 minutes following the same meal each day. Active traZODone (DESYREL) 50 mg tablet Take 1 tablet (50 mg total) by mouth at bedtime. Active bisacodyL (DULCOLAX) 5 mg EC tablet Take 2 tablets by mouth right before beginning bowel prep. See instructions provided by the office 2 tablet 5 Active polyethylene glycol (Golytely) 236-22.74-6.74 -5.86 gram solution Take 4L by mouth once for one dose. May substitue any PEG. Starting at 2PM the day before your procedure drink 1 8oz glasses at your own pace until you complete half of the gallon. Finish 2nd half of the gallon at 8PM. 4000 mL 5 Active Active Problems Problem Noted Date Diagnosed Date Heart failure with reduced e jection fraction ([facility] V24, [facility] V28) 11/19/2024 Ventricular arrhythmia 11/19/2024 Melanoma ([facility] V24, [facility] V28) 12/09/2019 Overview (08/01/2023): Stage IIb/IIc melanoma, following with Dr. Osorio Carlin, seen 11/19/2019. Bottom of foot, s/p removal years ago Colitis 11/19/2019 Malignant melanoma of left l ower extremity including hip ([facility] V24, [facility] V28) 11/19/2019 AICD (automatic cardioverter/defibrillator) pres ent 07/29/2019 Adrenal adenoma 07/29/2019 Overview (11/19/2024): 03/2019 CT 8 mm Right, no change Diverticulosis 07/29/2019 Substance abuse ([facility] V24, [facility] V28) 07/28 Overview (11/19/2024): Alcohol PLMD (periodic limb movement disorder) 0 CKD (chronic kidney disease) stage 3, GFR 30-59 ml/min ([facility] V24, [facility] V28) 06/18/2019 Anxiety 06/11/2019 NSVT (nonsustained ventricul ar tachycardia) ([facility] V24, [facility] V28) 06/11/2019 Tobacco dependence 06/11/2019 CAD (coronary artery disease) 03/18/2012 Overview (08/01/2023): 2007 Inferior ME, CABG x 4 Overview: 2007 Inferior ME, CABG x 4 DM (diabetes mellitus), type 2 with renal complications ([facility] V24, [facility] V28) 03/18/2012 Type 2 diabetes mellitus wit h diabetic nephropathy, without long-term current use of insulin ([facility] V24, [facility] V28) 03/18/2012 Ischemic cardiomyopathy 03/18/2012 Overview (08/01/2023): Last echo 10/2010 LVEF 25-30% (new from 2008), increased biatrial pressures, moderate biatrial enlargement Overview: Last echo 10/2010 LVEF 25-30% (new from 2008), increased biatrial pressures, moderate biatrial enlargement Obstructive sleep apnea 03/18/2012 Overview (08/01/2023): [facility] Home Sleep Apnea Test: Date 06/16/2019; Wt 240#; BMI 35; TIMI 19, AI 5; HI 14; Unclassified apneas 0; Obstructive apneas 18; Central apneas 2; Mixed apneas 0; hypopneas 59; average oxygen saturation 92% (lowest 86% without saturations <88% for 5% or more of study) [facility] Polysomnogram treatment study. Date 07/04/2019. Wt [...] by 2019 home sleep apnea test. Overview: [facility] Home Sleep Apnea Test: Date 06/16/2019; Wt 240#; BMI 35; TIMI 19, AI 5; HI 14; Unclassified apneas 0; Obstructive apneas 18; Central apneas 2; Mixed apneas 0; hypopneas 59; average oxygen saturation 92% (lowest 86% without saturations <88% for 5% or more of study) [facility] Polysomnogram treatment study. Date 07/04/2019. Wt [...] Severe obesity (BMI 35.0-39. 9) with comorbidity (CMS/HCC V24, [facility] V28) 03/18/2012 Foot pain 03/18/2012 Overview (11/19/2024): No gout HTN (hypertension) 03/18/2012 Hyperlipidemia 03/18/2012 Encounters Date Type Department Care Team Description 01/19/2025 9:11 AM EDT Anesthesia Event [facility] Endoscopy [address] [place] [address] Onesimo Chaney MD 01/19/2025 8:08 AM EDT - 01/19/2025 11:59 PM EDT Hospital Encounter [facility] Endoscopy [address] [place] [address] Giovanni Monk MD Georgette, Nathaniel, CRNA Spencer, Mark A, MD Positive FIT (fecal immunochemical test) Discharge Disposition: Home or Self Care 12/16/2024 Telephone Gastroenterology - [address] [phone] Malcom Golden MD 12/15/2024 3:30 PM EDT Office Visit Gastroenterology - [address] [phone] Lana Teague PA Positive FIT (fecal immunochemical test) (Primary Dx); Irritable bowel syndrome with constipation 11/02/2024 2:00 PM EDT Office Visit [facility] Hematology Oncology [address] [place] [address] Saravanan Macias MD Malignant melanoma of left lower extremity including hip ([facility] V24, [facility] V28) (Primary Dx); AICD (automatic cardioverter/defibrill ator) present; Coronary artery disease involving [place] coronary artery of [place] heart without angina pectoris from Last 3 Months Immunizations Name Administration Dates Next Due XVionics/Phylogy SARS-CoV-2 COVID -19, vector-nr, rS-Ad26, preservative free 08/24/2020 Pfizer SARS-CoV-2 COVID-19, mRNA, LNP-S, preservative free 04/19/2021 Surgical History Surgery Date Site/Laterality Comments OTHER SURGICAL HISTORY PROCEDURE:quadruple bypass OTHER SURGICAL HISTORY PROCEDURE:DEFIBRILATOR;COMMENT:PUT IN OTHER SURGICAL HISTORY N/A CORONARY ARTERY BYPASS GRAFT Medical History Medical History Date Comments Melanoma of heel ([facility] V24, [facility] V28) DX:Melanoma of heel (HCC) Diabetes ([facility] V24, [facility] V28) DX:Diabetes ([facility]) Hypertension DX:Hypertension Anxiety Sleep apnea Lung disease CAD (coronary artery disease) Dilated cardiomyopathy ([facility] V24, [facility] V28 ) Heart failure ([facility] V24, [facility] V28) PVD (peripheral vascular disease) ([facility] V24) Chronic kidney disease V tach ([facility] V24, [facility] V28) CHF (congestive heart failur e) ([facility] V24, [facility] V28) Myocardial infarction ([facility] V24, [facility] V28) Hyperlipidemia Family History Medical History Relation Name Comments Cancer Sister Relation Name Status Comments Sister Social History Tobacco Use Types Packs/Day Years Used Date Smoking Tobacco: Every Day Cigarettes Smokeless Tobacco: Never Alcohol Use Standard Drinks/Week Comments Yes 20 (1 standard drink = 0.6 oz pu re alcohol) social Interpersonal Safety Answer Date Record ed Physical Abuse 01/19/2025 Verbal Abuse 01/19/2025 Sex and Gender Information Value Date Recorded Sex Assigned at Male 12/31/2024 8:29 AM EDT Legal Sex Male 12:15 PM EST Gender Identity Male 12/31/2024 8:29 AM EDT Sexual Orientation Not on file Obstetrics History Last Filed Vital Signs Vital Sign Reading Time Taken Comments Blood Pressure 127/66 01/19/2025 10:00 AM EDT Pulse 63 01/19/2025 10:00 AM EDT Temperature 36.2 C (97.2 F) 01/19/2025 8:56 AM EDT Respiratory Rate 17 01/19/2025 10:00 AM EDT Oxygen Saturation 97% 01/19/2025 10:00 AM EDT Inhaled Oxygen Concentration - - Weight 125 kg (275 lb) 01/19/2025 8:56 AM EDT Height 175.3 cm (5' 9 ) 01/19/2025 8:56 AM EDT Body Mass Index 40.61 01/19/2025 8:56 AM EDT Plan of Treatment Upcoming Encounters Date Type Department Care Team (Late st Contact Info) Description 11/03/2025 2:45 PM EDT Office Visit [facility] Hematology Oncology [address] [place] [address] Osorio-Saravanan Carlin MD [address] [place] [phone] Health Maintenance Due Date Last Done Comments Diabetes: Annual Foot Exam 1964 Diabetes: Annual Retina Eye Exam 1964 Hepatitis A Vaccines (1 of 2 - Risk 2-dose series) 1973 Zoster Vaccines (1 of 2) 1973 RSV Immunization Adult Patients (1 - Risk 60-74 years 1-dose series) 2014 Diabetes: Annual GFR (Glomerular Filtration Rate) 09/27/2020 09/28/2019 Abdominal Aortic Aneurysm (AAA) Screen 04/28/2022 Cholesterol Screening (Lipid Panel) 04/28/2022 Hepatitis C Screening 04/28/2022 Lung Cancer Screening (Low Dose CT) 04/28/2022 Medicare Annual Wellness Visit 04/28/2022 Social Influencers of Health Screening 04/28/2022 Hypertension/CHF/CAD Annual BMP Blood Test 04/29/2022 09/28/2019 Diabetes: Annual Urine Albumin-Creatinine Ratio (uACR) 05/02/2022 Diabetes: Blood Sugar Control Test (HGBA1C) 05/02/2022 Depression Screening 05/20/2024 COVID-19 Vaccine ( season) 2025 02/14/2023, 03/27/2022, 04/19/2021, Additional history exists Influenza Vaccine (#1) 2025 , 02/14/2023, 03/27/2022, Additional history exists Skin Cancer Screening 05/04/2025 07/08/2019 Falls Risk Assessment 01/19/2026 01/19/2025 DTaP,Tdap,and Td Vaccines (3 - Td or Tdap) 07/26/2032 07/26/2022, 02/17/2018 Colorectal Cancer Screening: Colonoscopy 01/19/2035 01/19/2025 Pneumococcal Vaccine: 50+ Years Completed 02/14/2023 HIB Vaccines Aged Out No longer eligi [...] 20 months Aged Out No longer eligible based on patient's age to complete this topic Varicella Vaccines Aged Out No longer eligible based on patient's age to complete this topic Procedures Procedure Name Priority Date/Time Associated Diagnosis Comments COLONOSCOPY Routine 01/19/2025 9:39 AM EDT Positive FIT (fecal immunochemical test) TISSUE EXAM Routine 01/19/2025 9:25 AM EDT Positive FIT (fecal immunochemical test) ANNUAL BMP BLOOD TEST Routine 09/28/2019 from Last 3 Months or Most Recently Relevant to Health Maintenance Results * COLONOSCOPY Anesthesia - MAC; SP ENDOSCOPY (01/19/2025 9:39 AM EDT) Anatomical Region Laterality Modality Endoscopy 01/19/2025 9:11 AM EDT Impressions 01/19/2025 9:41 AM EDT - Eight 2 to 4 mm polyps in the transverse colon, in the ascending colon and in the cecum, removed with a cold snare. Resected and retrieved. - Diverticulosis in the sigmoid colon. - The distal rectum and anal verge are normal on retroflexion view. Recommendation: - Await pathology results. - Repeat colonoscopy is recommended for surveillance. The colonoscopy date will be determined after pathology results from today's exam become available for review. Narrative 01/19/2025 9:41 AM EDT [facility] GI Patient Name: Dakota Abebe Procedure Date: 01/19/2025 9:11 AM Date of : 1955 Age: 69 Gender: Male Note Status: Finalized Attending MD: Giovanni Monk MD, Procedure Date No Time: 01/19/2025 Procedure: Colonoscopy Indications: Positive fecal immunochemical test Providers: Giovanni Monk MD Referring MD: Soheila Millan MD Medicines: Monitored Anesthesia Care Complications: No immediate complications. Estimated blood loss: Minimal. Estimated Blood Loss: Estimated blood loss was minimal. Procedure: Pre-Anesthesia Assessment: - Prior to the procedure, a History and Physical was performed, and patient medications and allergies were reviewed. The patient is competent. The risks and benefits of the procedure and the sedation options and risks were discussed with the patient. All questions were answered and informed consent was obtained. Patient identification and proposed procedure were verified by the physician, the nurse, the party plan sales agent and the brewery technician in the pre-procedure area in the endoscopy suite. Mental Status Examination: alert and oriented. Airway Examination: normal oropharyngeal airway and neck mobility. Respiratory Examination: clear to auscultation. CV Examination: normal. Prophylactic Antibiotics: The patient does not require prophylactic antibiotics. Prior Anticoagulants: The patient has taken no anticoagulant or antiplatelet agents. ASA Grade Assessment: III - A patient with severe systemic disease. After reviewing the risks and benefits, the patient was deemed in satisfactory condition to undergo the procedure. The anesthesia plan was to use monitored anesthesia care (MAC). Immediately prior to administration of medications, the patient was re-assessed for adequacy to receive sedatives. The heart rate, respiratory rate, oxygen saturations, blood pressure, adequacy of pulmonary ventilation, and response to care were monitored throughout the procedure. The physical status of the patient was re-assessed after the procedure. After I obtained informed consent, the scope was passed under direct vision. Throughout the procedure, the patient's blood pressure, pulse, and oxygen saturations were monitored continuously. The Olympus Colonoscope was introduced through the anus and advanced to the cecum, identified by appendiceal orifice and ileocecal valve. The colonoscopy was performed without difficulty. The patient tolerated the procedure well. The quality of the bowel preparation was good. Findings: The perianal and digital rectal examinations were normal. Eight sessile polyps were found in the transverse colon, ascending colon and cecum. The polyps were 2 to 4 mm in size. These polyps were removed with a cold snare. Resection and retrieval were complete. Estimated blood loss was minimal. Scattered small-mouthed diverticula were found in the sigmoid colon. The retroflexed view of the distal rectum and anal verge was normal and showed no anal or rectal abnormalities. Procedure Code(s): --- Professional --- 65094, Colonoscopy, flexible; with removal of tumor(s), polyp(s), or other lesion(s) by snare technique Diagnosis Code(s): --- Professional --- D12.3, Benign neoplasm of transverse colon (hepatic flexure or splenic flexure) D12.2, Benign neoplasm of ascending colon D12.0, Benign neoplasm of cecum CPT copyright 2020 [employer]. All rights reserved. The codes documented in this report are preliminary and upon remote medical coder review may be revised to meet current compliance requirements. Giovanni Monk MD 01/19/2025 9:40:35 AM This report has been signed electronically.Giovanni Monk MD Number of Addenda: 0 Note Initiated On: 01/19/2025 9:11 AM Scope Withdrawal Time: 0 hours 13 minutes 18 seconds Scope In: 9:16:59 AM Scope Out: 9:37:20 AM Endoscopy Department at [facility] - [address] [place] [phone] Procedure Note Giovanni Monk MD - 01/19/2025 [facility] GI Patient Name: Dakota Abebe Procedure Date: 01/19/2025 9:11 AM Date of : 1955 Age: 69 Gender: Male Note Status: Finalized Attending MD: Giovanni Monk MD, Procedure Date No Time: 01/19/2025 Procedure: Colonoscopy Indications: Positive fecal immunochemical test Providers: Giovanni Monk MD Referring MD: Soheila Millan MD Medicines: Monitored Anesthesia Care Complications: No immediate complications. Estimated blood loss: Minimal. Estimated Blood Loss: Estimated blood loss was minimal. Procedure: Pre-Anesthesia Assessment: - Prior to the procedure, a History and Physicalwas performed, and patient medications and allergieswere reviewed. The patient is competent. The risks and benefits of the procedure and the sedation optionsand risks were discussed with the patient. Allquestions were answered and informed consent was obtained. Patient identification and proposed procedure were verified by the physician, the nurse, theanesthetist and the brewery technician in the pre-procedure area in the endoscopy suite. Mental Status Examination: alertand oriented. Airway Examination: normal oropharyngeal airway and neck mobility. Respiratory Examination: clear to auscultation. CV Examination: normal. Prophylactic Antibiotics: The patient does notrequire prophylactic antibiotics. Prior Anticoagulants: The patient has taken no anticoagulant or antiplatelet agents. ASA Grade Assessment: III - A patient with severe systemic disease. After reviewing the risksand benefits, the patient was deemed in satisfactory condition to undergo the procedure. The anesthesia plan was to use monitored anesthesia care (MAC). Immediately prior to administration of medications, the patient was re-assessed for adequacy to receive sedatives. The heart rate, respiratory rate, oxygen saturations, blood pressure, adequacy of pulmonary ventilation, and response to care were monitored throughout the procedure. The physical status ofthe patient was re-assessed after the procedure. After I obtained informed consent, the scope was passed under direct vision. Throughout theprocedure, the patient's blood pressure, pulse, and oxygen saturations were monitored continuously. TheOlympus Colonoscope was introduced through the anus and advanced to the cecum, identified by appendiceal orifice and ileocecal valve. The colonoscopy was performed without difficulty. The patient tolerated the procedure well. The quality of the bowel preparation was good. Findings: The perianal and digital rectal examinations were normal. Eight sessile polyps were found in the transverse colon, ascending colon and cecum. The polyps were 2to 4 mm in size. These polyps were removed with a cold snare. Resection and retrieval were complete. Estimated blood loss was minimal. Scattered small-mouthed diverticula were found inthe sigmoid colon. The retroflexed view of the distal rectum and anal verge was normal and showed no anal or rectal abnormalities. Procedure Code(s): --- Professional --- 35419, Colonoscopy, flexible; with removal of tumor(s), polyp(s), or other lesion(s) by snare technique Diagnosis Code(s): --- Professional --- D12.3, Benign neoplasm of transverse colon (hepatic flexure or splenic flexure) D12.2, Benign neoplasm of ascending colon D12.0, Benign neoplasm of cecum CPT copyright 2020 [employer]. All rights reserved. The codes documented in this report are preliminary and upon remote medical coder reviewmay be revised to meet current compliance requirements. Giovanni Monk MD 01/19/2025 9:40:35 AM This report has been signed electronically.Giovanni Monk MD Number of Addenda: 0 Note Initiated On: 01/19/2025 9:11 AM Scope Withdrawal Time: 0 hours 13 minutes 18 seconds Scope In: 9:16:59 AM Scope Out: 9:37:20 AM Endoscopy Department at [address] [phone] IMPRESSION: - Eight 2 to 4 mm polyps in the transverse colon, in the ascending colon and in the cecum, removed witha cold snare. Resected and retrieved. - Diverticulosis in the sigmoid colon. - The distal rectum and anal verge are normal on retroflexion view. Recommendation: - Await pathology results. - Repeat colonoscopy is recommended forsurveillance. The colonoscopy date will be determined after pathology results from today's exam becomeavailable for review. us Giovanni Monk MD GI~PROCEDURE ORDERABLES Fin al Result * Tissue exam (01/19/2025 9:25 AM EDT) Final Diagnosis A. Cecum, polyp x 1: Tubular adenoma. B. Ascending Colon, polyps x 4: Tubular adenomas, fragmented. C. Transverse Colon, polyps x 3: Tubular adenomas. 01/20/2025 11:45 AM [facility] Gross Description A. Large Intestine, Cecum, polyp x 1: Labeled colon, cecum polyp x 1 . Received in formalin, is an approximately 0.3 cm in greatest diameter soft to rubbery, barnes-pink to red, polypoid tissue fragment, inked green at the margin, admixed with minimal mucoid material, which is wrapped in paper and submitted in toto in one cassette, one piece, multiple levels. B. Large Intestine, Right/Ascending Colon, polyp x 4: Labeled ascend colon polyp x 4 . Received in formalin, are multiple irregular soft to rubbery, barnes-pink to red, polypoid tissue fragments, approximately ranging from 0.2 cm to 0.9 cm in greatest diameters, aggregating to 1.5 x 0.7 x 0.4 cm, inked green at the margin, bisected, and admixed with fecal/food debris. The specimen is wrapped in paper and submitted in toto in two cassettes, multiple pieces, multiple levels. 1-smaller polypoid tissue fragments (multiple pieces) please note: Small tissue fragments may not survive processing. 2-larger polypoid tissue fragments (four pieces) C. Large Intestine, Transverse Colon, polyp x 3: Labeled trans colon polyp x 3 . Received in formalin, are three irregular soft to rubbery, barnes-pink to red, polypoid tissue fragments, approximately ranging from 0.4 cm to 1.0 cm in greatest diameters, inked green at the margin, bisected, and admixed with fecal/food debris. The specimen is wrapped in paper and entirely submitted in toto in three cassettes, five pieces, multiple levels. 1-smaller polypoid tissue fragment (one piece) 2,3-inked, bisected polypoid tissue fragments (four pieces) hs/DG 01/20/2025 11:45 AM [facility] Disclaimer Unless otherwise specified, all tissue is 10% NB formalin fixed and paraffin embedded. 01/20/2025 11:45 AM [facility] Tissue Cecum structure / Unknown 01/19/2025 9:25 AM EDT 01/19/2025 10:17 AM EDT Tissue specimen (specimen) Ascending colon structure / Unknown 01/19/2025 9:27 AM EDT 01/19/2025 10:17 AM EDT Tissue specimen (specimen) Transverse colon structure / Unknown 01/19/2025 9:33 AM EDT 01/19/2025 10:17 AM EDT us Giovanni Monk MD LAB PATHOLOGY ORDERABLES Fi nal Result [facility] ([facility]) [facility] [address] [place] [address], * Annual BMP Blood Test (09/28/2019) Annual BMP Blood Test abstracted us Historical Provider HEALTH MAINTENANCE Final Result from Last 3 Months or Most Recently Relevant to Health Maintenance Insurance [employer]AGE Care Teams Lead Network Engineer Relationship Specialty Start Date End Date Soheila Millan MD [address] [place] [address] [phone] PCP - General 08/14/22
== END 2025-02-01 12:10 | disposition home or self-care (01) ==
LOC: HO.PMC 11:45
PROVIDERS: PCP Family Medicine; Visit Provider Internal Medicine
DX: M16.12 Unilateral primary osteoarthritis, left hip (principal); M25.512 Pain in left shoulder
CPT/HCPCS: 99214

== ENCOUNTER → 2025-02-01 11:45 | Outpatient (BNVA) | payer MEDICARE, SELFPAY | PROVIDERS: PCP Family Medicine; Visit Provider Internal Medicine | DX: M25.512 Pain in left shoulder (principal); M16.12 Unilateral primary osteoarthritis, left hip; F41.9 Anxiety disorder, unspecified; F32.A Depression, unspecified; G89.29 Other chronic pain | CPT/HCPCS: 99212 ==